=== PATIENT | male | born 1990 | race Caucasian/White ===

== ENCOUNTER 2024-08-08 08:12 | Outpatient (AMB) | payer BC, SELFPAY ==
--- NOTE | 2024-08-08 08:08 | A.OFFVIS_ITS ---
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 Allergies azithromycin Allergy (Mild, Verified 08/08/24 08:09) Unknown Penicillins Allergy (Mild, Verified 08/08/24 08:09) Unknown Sulfa (Sulfonamide Antibiotics) Allergy (Mild, Verified 08/08/24 08:09) Unknown Medication List - Last Reconciled 08/08/24 by Adam Jeter MD amlodipine-benazepril 10-40 mg 1 cap PO DAILY dextroamphetamine-amphetamine 5 mg (Adderall) 5 mg PO DAILY escitalopram oxalate (Lexapro) 20 mg PO DAILY escitalopram oxalate (Lexapro) 10 mg PO DAILY rosuvastatin 10 mg PO DAILY HPI 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: Details: Start time: 8.01am, End time: 9.01am I spent 55 minutes speaking with the patient on the phone plus an additional 5 minutes reviewing and updating records for a total of 60 minutes HPI Comments Details: Previous weight loss efforts: Keto diet, low carb, protein shakes Wakes up: 7.30am, Sleeps: 10.30pm Breakfast: 8am [employer] breakfast Lunch: 12.30pm (salad with chicken, burger) Dinner: 8pm (fast food) Snacks: 4pm (candy bar, chips), 9pm (ice cream) Exercise: Gym at his work Fluids: Coffee (2-3/d, one from [employer] with cream and sugar, black when self made), tea: rare, soda: Energy Drinks, juice: rare, ETOH: none PFSH Medical History (Updated 08/08/24 @ 08:15 by Adam Jeter MD) Anti-glomerular basement membrane antibody disease ADHD DJD (degenerative joint disease) Hyperlipidemia Hypertension Morbid obesity Fatty liver Family History (Updated 08/07/24 @ 08:06 by DYLON Figueroa) Father Heart attack Telehealth Telehealth Telehealth Platform: Telephone Location of provider rendering services: practice address Location of patient: address on file Patient Identification confirmed using: Name, : Yes Telehealth method: voice only Patient verbally consented to treatment: Yes Patient verbally consented to billing insurance company: Yes Patient informed of any privacy concerns related to visit: Yes Minutes spent on Phone/Video with Pt.: 60 Assessment & Plan Assessment & Plan (1) Morbid obesity: Code(s): E66.01 - Morbid (severe) obesity due to excess calories Category: Medical Plan: 1. Plan for lap sleeve gastrectomy. If diaphragmatic or ventral hernias are present at time of surgery, these will be repaired laparoscopically as well. I emphasized the importance of close follow-up, adherence to instructions and good communication. The surgery does not replace the need to change your lifestlyle which is the cause of the obesity problem. The surgery provides the motivation to try again to change your lifestyle, it reduces the appetite and make the transition to a better lifestyle easier and doubles the amount of weight you would lose compared to doing the lifestyle change without the surgery. You will need to be on a liquid diet with protein shakes for 2 weeks before surgery to maximize weight loss and boost your nutritional status to recover better from surgery and also for the first two weeks after surgery to let the stomach heal before we introduce other foods. After the first 2 weeks we will introduce protein bars and soft foods like scrambled eggs, cottage cheese and yogurt and after the 6th week will introduce meat, fish and cooked vegetables in small amounts. Over time you should be able to eat everything in small amounts. Side effects like nausea, vomiting, heartburn or abdominal pain are not common in the practice unless you are not following in the practice. This operation requires lifetime commitment to following in our practice and communication with me. You will much less weight and experience side effects if you don?t communicate or not following in the practice. Complications are rare and in our practice is about 1/10 of the national average. However, you can develop bleeding that may require transfusion (hasn?t happened for year in the practice), you may from complications (we did not have any deaths in the practice) and infections. Infections are usually a result of breakdown in communication or not understanding or following directions correctly. They are difficult to treat, they can happen during the first 6 weeks, they may require to be in the hospital for weeks or even months, not being able to eat by mouth and you may have drains and surgeries to try and correct the issue. Other risks and complications include possible conversion to an open procedure, leaks, small bowel obstruction, blood clots, cardiac, or pulmonary complications, as care home complications such as ulcers, insufficient weight loss and vitamin deficiencies. 2. You will receive a link of our software estephania to generate an individualized nutritional and exercise plan specific for you. Please send me a screenshot of the plans you will generate Meal to include lean meat (beef, fish, pork, turkey, chicken), or maori yogurt, or egg whites, or beans with a salad with olive oil and fruits (berries, pears, apples, kiwi). Avoid salt, breads, potatoes, rice, pasta, desserts. 3. If you choose shakes, each shake would be drunk slowly, like coffee in a period of 2 hours. 4. If you choose bars, cut each bar in 4 pieces and eat each piece in 30min to make each bar last 2 hours. 5. I emphasized the importance of measuring accurately the food portion and measure it when serving the food in plate 6. The meal portions include a specific number of forks of meat and salad. You always eat the meat portion but you can replace up to half of salad/vegetables portion with rice, potatoes or pasta, or a fruit if you like. The less you do it the better weight loss will be. 7. One full-size fork is what it can be scooped on the fork without falling aside and not what can be bit with the fork. Use regular forks like those you find in a typical restaurant. 8. Please buy the body composition scale we discussed and send me weight measurements as soon as possible and then once a week. Always include your diet and exercise plan. 9. The best choice would be to purchase a stationary bike, elliptical or treadmill at home that can track calories. Let me know if you do so I can give you an exercise plan. 10. Goal is to lose at least 1.5-2lbs per week 11. Goal to lose 10% of your weight before surgery, which is about 30lbs. Ultimate weight goal: 267lbs before surgery 12. Please follow the diet plan exactly without any change. If you don't like something about the plan or you feel hungry you need to communicate with me so I can help you revise the plan. You should not change the plan yourself. 13. To be scheduled for EGD to assess the stomach's anatomy. The possibility of biopsies was discussed. Patient needs to avoid use of NSAIDs and aspirin for 1 week prior to EGD. You must be on liquids only the day before your endoscopy. Risks of perforation and bleeding was discussed with the patient. This will be an outpatient procedure with IV sedation. Orders: Orders H Pylori Breath Test Today E66.01 - Morbid (severe) obesity due to excess calories, E78.5 - Hyperlipidemia, unspecified, I10 - Essential (primary) hypertension Lipid Panel Today E66.01 - Morbid (severe) obesity due to excess calories, E78.5 - Hyperlipidemia, unspecified, I10 - Essential (primary) hypertension Comprehensive Met. Panel Today E66.01 - Morbid (severe) obesity due to excess calories, E78.5 - Hyperlipidemia, unspecified, I10 - Essential (primary) hypertension Vitamin B1 Today E66.01 - Morbid (severe) obesity due to excess calories, E78.5 - Hyperlipidemia, unspecified, I10 - Essential (primary) hypertension Vitamin A Today E66.01 - Morbid (severe) obesity due to excess calories, E78.5 - Hyperlipidemia, unspecified, I10 - Essential (primary) hypertension TSH reflex Free T4 Today E66.01 - Morbid (severe) obesity due to excess calories, E78.5 - Hyperlipidemia, unspecified, I10 - Essential (primary) hypertension ECG 12 lead EKG Today E66.01 - Morbid (severe) obesity due to excess calories, E78.5 - Hyperlipidemia, unspecified, I10 - Essential (primary) hypertension RT home sleep study Today E66.01 - Morbid (severe) obesity due to excess calories, E78.5 - Hyperlipidemia, unspecified, I10 - Essential (primary) hypertension Insulin Today E66.01 - Morbid (severe) obesity due to excess calories, E78.5 - Hyperlipidemia, unspecified, I10 - Essential (primary) hypertension Hemoglobin A1c Today E66.01 - Morbid (severe) obesity due to excess calories, E78.5 - Hyperlipidemia, unspecified, I10 - Essential (primary) hypertension Complete Blood Count Auto Diff Today E66.01 - Morbid (severe) obesity due to excess calories, E78.5 - Hyperlipidemia, unspecified, I10 - Essential (primary) hypertension IRON PROFILE Today E66.01 - Morbid (severe) obesity due to excess calories, E78.5 - Hyperlipidemia, unspecified, I10 - Essential (primary) hypertension Vitamin B12 and Folate Today E66.01 - Morbid (severe) obesity due to excess calories, E78.5 - Hyperlipidemia, unspecified, I10 - Essential (primary) hypertension Zinc Today E66.01 - Morbid (severe) obesity due to excess calories, E78.5 - Hyperlipidemia, unspecified, I10 - Essential (primary) hypertension C Reactive Protein Today E66.01 - Morbid (severe) obesity due to excess calories, E78.5 - Hyperlipidemia, unspecified, I10 - Essential (primary) hypertension Ferritin Today E66.01 - Morbid (severe) obesity due to excess calories, E78.5 - Hyperlipidemia, unspecified, I10 - Essential (primary) hypertension Vitamin D 25-OH Total Today E66.01 - Morbid (severe) obesity due to excess calories, E78.5 - Hyperlipidemia, unspecified, I10 - Essential (primary) hypertension US abdomen comp w elastography Today E66.01 - Morbid (severe) obesity due to excess calories, E78.5 - Hyperlipidemia, unspecified, I10 - Essential (primary) hypertension XR chest 2V Today E66.01 - Morbid (severe) obesity due to excess calories, E78.5 - Hyperlipidemia, unspecified, I10 - Essential (primary) hypertension FL upper GI w air Today E66.01 - Morbid (severe) obesity due to excess calories, E78.5 - Hyperlipidemia, unspecified, I10 - Essential (primary) hypertension Referrals Nutrition/Dietitian Referral E66.01 - Morbid (severe) obesity due to excess calories, E78.5 - Hyperlipidemia, unspecified, I10 - Essential (primary) hypertension Behavioral Health Referral E66.01 - Morbid (severe) obesity due to excess calories, E78.5 - Hyperlipidemia, unspecified, I10 - Essential (primary) hypertension
--- OUTSIDE RECORDS SUMMARY | 2024-08-08 08:29 | XMS_ITS | Clinical Summary ---
Author Organization [facility] Address [address] [id number] Phone Care Team Providers Care Jewelry Estimator Name Role Phone Alma Chavarria MD Primary Care Provider + [phone] Allergies Active Allergy Reactions Criticality Noted Date Comments Erythromycin Other (see comments) 02/03/2021 Penicillins 02/03/2021 Sulfa Antibiotics Other (see comments) 02/04/20 21 Medications amLODIPine-carey zepril (LOTREL) 10-40 MG per capsule Take by mouth 1 (one) time each day 11/26/2020 Active amphetamine-dex troamphetamine XR (Adderall XR) 15 MG 24 hr capsule Take 1 capsule by mouth 1 (one) time each day Active buPROPion XL (WELLBUTRIN XL) 150 MG 24 hr tablet 02/02/2021 Active escitalopram (LEXAPRO) 20 MG tablet 02/02/2021 Active hydrOXYzine (ATARAX) 25 MG tablet Active Active Problems Problem Noted Date Diagnosed Date Allergic rhinitis 02/03/2021 Body mass index 30+ - obesity 02/03/2021 Chronic dermatitis 02/03/2021 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 Recurrent depression 02/03/2021 Essential hypertension 08/17/2012 Family History Medical History Relation Comments Hypertension Father Diabetes Mother Type 2 Relation Status Comments Father Alive Mother Alive Social History Tobacco Use Types Packs/Day Years Used Date Smoking Tobacco: Never Alcohol Use Standard Drinks/Week Comments No 0 (1 standard drink = 0.6 oz pur e alcohol) Sex and Gender Information Value Date Recorded Sex Assigned at Not on file Legal Sex Male 5:22 PM EST Gender Identity Not on file Sexual Orientation Not on file Last Filed Vital Signs Vital Sign Reading Time Taken Comments Blood Pressure 140/90 01/31/2020 12:00 PM EDT Pulse - - Temperature - - Respiratory Rate - - Oxygen Saturation - - Inhaled Oxygen Concentration - - Weight 163 kg (360 lb) 01/31/2020 12:00 PM EDT Height 182.9 cm (6') 01/31/2020 12:00 PM EDT Body Mass Index 48.82 01/31/2020 12:00 PM EDT Plan of Treatment Upcoming Encounters Date Type Department Care Team (Late st Contact Info) Description 08/23/2024 8:30 AM EDT [facility] [address] [phone] [place] [address] [phone] Health Maintenance Due Date Last Done Comments Pneumococcal Vaccine: Pediat rics (0 to 5 Years) and At-Risk Patients (6 to 64 Years) (1 of 2 - PCV) 02/09/1994 Hepatitis B Vaccine (1 of 3 - 19+ 3-dose series) 02/09 Influenza Vaccine (#1) 2024 Insurance [facility] Care Teams Jewelry Estimator Relationship Specialty Start Date End Date Alma Chavarria MD [address] [place] [address] PCP - General Internal Medicine 12/09/22
[2024-08-08 08:41] VITALS: BMI 53.9
== END 2024-08-08 09:02 | disposition home or self-care (01) ==
LOC: HO.HBS 08:12
PROVIDERS: PCP Internal Medicine; Visit Provider Surgery
DX: E66.01 Morbid (severe) obesity due to excess calories (principal)
CPT/HCPCS: 99205

== ENCOUNTER 2024-08-15 07:44 | Outpatient (REF) | payer BC, SELFPAY ==
--- NOTE | ~2024-08-15 | XR_ITS ---
EXAMINATION: XR CHEST CLINICAL INFORMATION: E66.01 - Morbid (severe) obesity due to excess calories COMPARISON: None available. TECHNIQUE: 2 views of the chest were obtained. FINDINGS: No consolidation , pleural effusion or pneumothorax. Poor inspiration. Cardiomediastinal silhouette is normal. Osseous structures are intact. XR/XR chest 2V IMPRESSION: No acute airspace disease. Electronically signed by: Ibrahima Young MD 08/17/2024 08:58 AM ISABELL
--- NOTE | 2024-08-15 07:51 | ECG_ITS ---
Test Reason : E66.01 Blood Pressure : */* mmHG Vent. Rate : 82 BPM Atrial Rate : 82 BPM P-R Int : 162 ms QRS Dur : 102 ms QT Int : 406 ms P-R-T Axes : 53 2 144 degrees QTcB Int : 474 ms Normal sinus rhythm ST & T wave abnormality, consider lateral ischemia Prolonged QT Abnormal ECG No previous ECGs available Referred By: Adam Jeter Electronically Signed By: BULMARO PORTILLO MD
[2024-08-15 08:11] LABS: MANUAL DIFF FLAG NO
[2024-08-15 08:17] LABS: Basophils Percent Auto 0.5 % (0-2); Eosinophils Absolute Auto 0.2 X10*3/uL (0.0-0.4); Eosinophils Percent Auto 2.1 % (0-4); Hematocrit 47.6 % (42.0-52.0); Hemoglobin 16.8 g/dl (14.0-18.0); Imm Gran Abs Auto 0.02 X10*3/uL (0.00-0.03); Imm Gran Pct Auto 0.3 % (0.0-0.4); Lymphocytes Absolute Auto 1.9 X10*3/uL (1.2-4.9); Lymphocytes Percent Auto 26.5 % (20-40); Mean Corpuscular HGB Conc 35.3 g/dl (31.0-36.0); Mean Platelet Volume 10.5 fL (9.4-12.4); Monocytes Absolute Auto 0.6 X10*3/uL (0.1-1.2); Monocytes Percent Auto 7.8 % (2-11); Neutrophils Absolute Auto 4.6 x10*3/uL (2.0-8.3); Neutrophils Percent Auto 62.8 % (45-73); Platelet Count 286 X10*3/uL (160-400); Red Cell Distribution Width 11.9 % (11.0-16.0); White Blood Count 7.3 X10*3/uL (4.8-10.8)
[2024-08-15 08:39] LABS: Estimated Average Glucose 105 mg/dL; Hemoglobin A1C 148.3498 umol/L; Hemoglobin A1c % 5.3 % (<6.0); Total Hemoglobin (HGBA1C) 4333.1947 umol/L
[2024-08-15 08:59] LABS: Alanine Aminotransferase 68 U/L (0-40); Albumin Level 4.1 g/dL (3.5-5.0); Alkaline Phosphatase 62 U/L (39-117); Anion Gap 10 (12-20); Aspartate Amino Transferase 42 U/L (5-37); Bilirubin Total 0.9 mg/dL (0.0-1.0); Blood Urea Nitrogen 20 mg/dL (9-16); C Reactive Protein 0.57 mg/dL (< or = 0.50); Calcium 9.2 mg/dL (8.4-10.2); Carbon Dioxide 25 mmol/L (22-29); Chloride 107 mmol/L (96-108); Cholesterol 129 mg/dL (<200); Estimated Glomerular Filt Rate > 60; Glucose Random 107 mg/dL (60-115); HDL Cholesterol 28 mg/dL (>40); Iron 152 mcg/dL (45-160); LDL Cholesterol Calculated 61 mg/dL (<100); Percent Iron Saturation 55 % (15-50); Potassium 4.2 mmol/L (3.3-5.1); Sodium 138 mmol/L (135-145); Total Iron Binding Capacity 276 mcg/dL (228-428); Total Protein 7.5 g/dL (6.5-8.0); Triglycerides 202 mg/dL (<150); Unsaturated Iron Binding 124 ug/dL
[2024-08-15 09:24] LABS: Ferritin 251 ng/mL (20-250); TSH reflex Free T4 1.04 uIU/mL (0.32-4.0); Vitamin D 25-OH Total 28.5 ng/mL (>30)
[2024-08-15 09:32] LABS: Folate 14.5 ng/mL (> or = 4.0); Vitamin B12 662 pg/mL (200-900)
[2024-08-15 10:33] LABS: Insulin 25 uU/mL (2-29)
[2024-08-18 22:44] LABS: Zinc 77 mcg/dL (60-130)
[2024-08-19 00:34] LABS: Vitamin A 75 mcg/dL (38-98)
[2024-08-25 16:08] LABS: Vitamin B1 9 nmol/L (8-30)
== END 2024-08-15 07:45 | disposition home or self-care (01) ==
LOC: HO.XRAY 07:44
PROVIDERS: PCP Internal Medicine; Visit Provider Surgery
DX: E66.01 Morbid (severe) obesity due to excess calories (principal); E78.5 Hyperlipidemia, unspecified; I10 Essential (primary) hypertension; Z13.1 Encounter for screening for diabetes mellitus
CPT/HCPCS: 36415; 71046; 80053; 80061; 82306; 82607; 82728; 82746; 83036; 83525; 83540; 84425; 84443; 84590; 84630; 85025; 86140; 93005

== ENCOUNTER → 2024-08-15 07:51 | Outpatient (BNV) | payer BC, SELFPAY | PROVIDERS: PCP Internal Medicine; Visit Provider Internal Medicine Cardiovascular Disease | DX: R94.31 Abnormal electrocardiogram [ECG] [EKG] (principal); E66.01 Morbid (severe) obesity due to excess calories | CPT/HCPCS: 93010 ==

== ENCOUNTER → 2024-08-15 08:09 | Outpatient (BNV) | payer BC, SELFPAY | PROVIDERS: PCP Internal Medicine; Visit Provider Radiology Diagnostic Radiology | DX: E66.01 Morbid (severe) obesity due to excess calories (principal) | CPT/HCPCS: 71046 ==

== ENCOUNTER 2024-09-03 08:09 | Outpatient (AMB) | payer BC, SELFPAY ==
--- NOTE | 2024-09-03 08:00 | MHC.WMTHER ---
Intake Intake Visit Reasons: VIDEO BH Intake Allergies azithromycin Allergy (Mild, Verified 08/08/24 08:09) Unknown Penicillins Allergy (Mild, Verified 08/08/24 08:09) Unknown Sulfa (Sulfonamide Antibiotics) Allergy (Mild, Verified 08/08/24 08:09) Unknown [facility] Medical History (Updated 08/15/24 @ 16:58 by Adam Jeter MD) Anti-glomerular basement membrane antibody disease ADHD DJD (degenerative joint disease) Hyperlipidemia Hypertension Morbid obesity Fatty liver Family History (Updated 08/07/24 @ 08:06 by DYLON Figueroa) Father Heart attack Behavioral Health Assessment Weight Management Therapy Therapy Notes Details PT is a 34 years old Male, who presents for initial visit to start BH assessment as part of surgical weight loss program. Presenting Concerns Referral Source Initially referred PCP referred Reason for referral Completion of behavioral health assessment as part of process for weight-loss surgery. Precipitating Event Obese Living Situation Current Living Situation Rent At risk of losing current housing? No Satisfied with current living situation? Yes Comments Lives in an in-law apartment at his fathers home. Food/Weight/Diet Expectations of change The initial goal to lose 10% of her weight before surgery, which is about 30 lbs. Ultimate weight goal: 267lbs before surgery PT started the program at 397Lbs and recent Weight as of 08/30/24 388Lbs The patient doesn't have a specific weight goal, but at least would like to be around 200 lbs. Their main goals are related to his health. PT is implementing the following: Current meal plan: using [email or web address] website. has a combination on shakes, bars and 1 meal at day which is dinner. Exercise plan: doing walks. Scale: Yes History/Relationship with food Example of meals before starting the program: Breakfast: Lunch: Dinner: Snacks: Drinks/Liquids: History/Relationship with weight In the last 10 years, the patient's Lowest weight was and highest History/Relationship with dieting Tired WL program 4 years ago WL medication for a while, had side effects. Social History Family history and relationship PT is single but dating. Parents are alive, he has 3 sisters His parents when he was a child. HE moved around due to his father being in the [place]. Not close to his mother. close to his dad and sisters. 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 currently taking Adderall and guafazine. Social support Father, step-mom, girlfriend. Network of people at work. Community support PCP who made the referral. Psychiatrist. Quaker/Spirituality None. Cultural/Ethnic information . Legal Involvement and History Current or historical involvement with the legal system? None. Education Highest grade completed HS. College certificate in addictions. Preferred learning style Learn by doing and Visual Currently enrolled in educational program? No Interested in further educational program? Yes Educational Interests/Skills Social work. 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 ) Wants help to find employment? No Meaningful activities Read, play a social game a couple of times a week, and go hiking on the weekends. Financial Situation Describe current financial situation Comfortable Financial assistance? None Service Service? No Mental Health and Addiction Treatment Current/Past substance abuse? No Comments Alcohol: rarely. Cigarettes/Tobacco: on and off. Once in a while will have one. Cannabis/Edibles: None Current/Past addictive behavior concerns? No Psychiatric history PT has previously attended therapy, with the most recent session occurring two years ago. PT reports a history of trauma and experienced depressive symptoms during treatment for an autoimmune condition. PT has been diagnosed with ADD and are unsure if they were ever formally diagnosed with depression. PT currently sees Dr. Yury Nunez, a psychiatrist, every 2-3 months. Their current medications include: -Adderall 5mg -Lexapro 30mg -Guanfacine 4mg PT reports feeling stable with this medication regimen. The patient denies any history of hospitalization or behavioral health crises. They also deny any safety concerns regarding suicidal ideation (SI), self-harm, or harm to others. Medical and Physical Health Summary Additional Medical History not covered in history None additional. Sexual History concerns None reported. Physical exam in the last year? Yes Pain Screening Current pain? No Pain in the last few months? Yes Comments Knee and feet. Medications Is the patient compliant with medications? Yes Does the patient have Hackett Guardian in place? Not applicable Does the patient use complimentary health approaches? Yes (Been to a chiropractor years ago. Does massage Therapy once in a while. ) Trauma/Abuse History History of trauma? Yes (Due to medical issues, in childhood there was family trauma while parents were trough separation, but he doesn't recall.) Questionnaires PHQ-9 Over the last 2 weeks, how often have you been bothered by any of the following problems? 1. Little interest or pleasure in doing things: several days 2. Feeling down, depressed, or hopeless: several days 3. Trouble falling or staying asleep, or sleeping too much: more than half the days 4. Feeling tired or having little energy: nearly every day 5. Poor appetite or overeating: nearly every day 6. Feeling bad about yourself - or that you are a failure or have let yourself or your family down: several days 7. Trouble concentrating on things, such as reading the newspaper or watching television: more than half the days 8. Moving or speaking so slowly that other people could have noticed. Or the opposite - being so fidgety or restless that you have been moving around a lot more than usual: not at all 9. Thoughts that you would be better off or of hurting yourself in some way: not at all Total score: 13 Depression Screening Interpretation: Positive (From New PT pack - New one will be applied at next visit. ) Depression Screening Follow-up: Existing condition Depression Screening Done: Yes Source: Developed by Drs. Danial Martin, Fe White, Avery Ramos and colleagues, with an educational adryan from [employer]. Assessment & Plan Assessment & Plan (1) ADD (attention deficit disorder): Code(s): F98.8 - Other specified behavioral and emotional disorders with onset usually occurring in childhood and adolescence (2) Trauma and stressor-related disorder: Code(s): F43.9 - Reaction to severe stress, unspecified Plan The patient will return in 1-3 weeks to complete the assessment, as they were not cleared today. A new PHQ-9 will be administered, and the BES will be reviewed. Next estephania: 09/24/2024 at 8am, Telehealth. Telehealth Telehealth Telehealth Platform: [facility] Location of provider rendering services: other Location of patient: address on file Patient Identification confirmed using: Name, : Yes Telehealth method: video Patient verbally consented to treatment: Yes Patient verbally consented to billing insurance company: Yes Patient informed of any privacy concerns related to visit: Yes Minutes spent on Phone/Video with Pt.: 55 Coding Level of Care Code New Pt Tele Psy Diag Eval (83872) Patient Type New Diagnoses ADD (attention deficit disorder) F98.8 Trauma and stressor-related disorder F43.9 Time Spent (min) 55
== END 2024-09-03 08:58 | disposition home or self-care (01) ==
LOC: HO.HBST 08:09
PROVIDERS: PCP Internal Medicine; Visit Provider Counselor Mental Health
DX: F98.8 Other specified behavioral and emotional disorders with onset usually occurring in childhood and adolescence (principal); F43.9 Reaction to severe stress, unspecified
CPT/HCPCS: 90791

== ENCOUNTER → 2024-09-03 08:09 | Outpatient (BNVA) | payer BC, SELFPAY | PROVIDERS: PCP Internal Medicine; Visit Provider Counselor Mental Health ==

== ENCOUNTER 2024-09-07 07:46 | Outpatient (REF) | payer BC, SELFPAY ==
--- NOTE | ~2024-09-07 | US_ITS ---
EXAMINATION: US ABDOMEN COMPLETE WITH LIVER ELASTOGRAPHY HISTORY: E66.01 - Morbid (severe) obesity due to excess calories TECHNIQUE: Real-time grayscale ultrasound imaging of the abdomen was performed and images were reviewed. COMPARISON: There are no prior studies for comparison. FINDINGS: Liver: The right lobe of the liver measures 17.8 cm in size. The left lobe of the liver measures 8.8 cm in size. The liver demonstrates normal homogeneous echotexture. No focal mass or intrahepatic biliary ductal dilatation is identified. There is normal hepatopedal flow in the portal vein. Ultrasound elastography of the liver was performed with 10 separate measurements of the liver parenchyma with the patient in the supine position. It was difficult to obtain measurements approximately 2 cm below Phillip's capsule and perpendicular to the capsule due to patient body habitus. Images are of satisfactory quality. The median shear wave velocity is 1.94 m/s. The interquartile range/median (IQR/median) is 0.11. Gallbladder and biliary tree: The gallbladder is unremarkable, without evidence of calculi, wall thickening, or pericholecystic fluid. There is no sonographic Hoffmann sign. The common bile duct is normal in caliber measuring 3 mm. Kidneys: The right kidney measures 13.0 cm in length. The left kidney measures 12.6 cm in length. The kidneys are unremarkable, without evidence of masses, hydronephrosis, or calculi. Pancreas: There is limited visualization of the pancreas. Spleen: The spleen is normal in size and contour, measuring 11.3 cm in length. Abdominal aorta and inferior vena cava: The visualized portions of the abdominal aorta and inferior vena cava are normal in caliber. There is no free fluid in the abdomen. US/US abdomen comp w elastography IMPRESSION: Mild hepatomegaly. The pancreas is not well visualized. The median shear wave velocity in the liver is 1.94 m/s, corresponding to a median liver stiffness of 11.50 kPa. The IQR/median value is 0.11. This is indicative of a quality data set. Findings are indicative of a high elastography value suggestive of compensated advanced chronic liver disease. REFERENCE: Society of [employer]iologists in Ultrasound Liver Stiffness Thresholds (2020): LIVER STIFFNESS THRESHOLDS: *Shear wave velocity less than 1.3 m/s (Liver Stiffness equal or less than 5 kPa): High probability of being normal. *Shear wave velocity less than 1.7 m/s (Liver Stiffness less than 9 kPa): In the absence of other known clinical signs, rules out compensated advanced chronic liver disease. *Shear wave velocity between 1.7-2.1 m/s (Liver Stiffness 9-13 kPa): Suggestive of compensated advanced chronic liver disease but need further test for confirmation. *Shear wave velocity between 2.1-2.4 m/s (Liver Stiffness 13-17 kPa): Rules in compensated advanced chronic liver disease. *Shear wave velocity greater than 2.4 m/s (Liver Stiffness over 17 kPa): Suggestive of clinically significant portal hypertension. QUALITY OF DATA SET: *IQR/Median value equal or less than 0.15 implies a quality data set. *IQR/Median value over 0.15 implies a poor quality data set. SIGNIFICANT CHANGE FROM PRIOR EXAM: Significant change if liver stiffness measurement is 10% or greater from prior exam. OTHER CONSIDERATIONS: The stage of liver fibrosis may be overestimated in the setting of acute hepatitis, liver inflammation, elevated liver function tests, hepatic vascular congestion, obstructive cholestasis, non-fasting state, and infiltrative diseases such as amyloidosis and lymphoma. In some patients with NAFLD, the liver stiffness thresholds for compensated advanced chronic liver disease may be lower. In causes other than viral hepatitis and NAFLD, liver stiffness thresholds are not well established. Electronically signed by: Danial Hugo MD 09/07/2024 08:22 AM EDT
== END 2024-09-07 07:47 | disposition home or self-care (01) ==
LOC: HO.US 07:46
PROVIDERS: PCP Internal Medicine; Visit Provider Surgery
DX: E66.01 Morbid (severe) obesity due to excess calories (principal); E78.5 Hyperlipidemia, unspecified; I10 Essential (primary) hypertension
CPT/HCPCS: 76700; 76981

== ENCOUNTER → 2024-09-07 07:48 | Outpatient (BNV) | payer BC, SELFPAY | PROVIDERS: PCP Internal Medicine; Visit Provider Radiology Diagnostic Radiology | DX: R16.0 Hepatomegaly, not elsewhere classified (principal); E66.01 Morbid (severe) obesity due to excess calories | CPT/HCPCS: 76700; 76981 ==

== ENCOUNTER 2024-09-13 06:11 | Day surgery (SDC) | payer BC, SELFPAY ==
[2024-09-11 14:17] VITALS: BMI 53.9
--- NOTE | 2024-09-11 15:04 | HO.ANESPROP2 ---
Documented by User: Janette Carmen NP 09/11/24 15:31 HPI - Anesthesia Eval Consult details Narrative: 34yo M for Upper Endoscopy BMI 54 Cardiomyopathy on ECHO 2023, no CAD per Coronary CTA s/p VATS 2011 - ? etiology Case reviewed with Dr Garcia Anesthesia Pre-Procedure Meds Is the patient on any of the following meds?: SGLT2 Inhib PMFSH Active Problems Active Problems: All Active Problems Abnormal EKG (Acute) Vitamin D deficiency (Acute) Anti-glomerular basement membrane antibody disease (Acute) ADHD (Acute) DJD (degenerative joint disease) (Acute) Hyperlipidemia (Acute) Hypertension (Acute) Morbid obesity (Acute) Past Medical History Medical History Pre-diabetes Cardiomyopathy, unspecified Anxiety and depression Anti-glomerular basement membrane antibody disease ADHD DJD (degenerative joint disease) Hyperlipidemia Hypertension Morbid obesity Fatty liver Family History Family History Father Heart attack Surgical History Surgical History History of biopsy of kidney History of video-assisted thoracoscopic surgery (VATS) Social History Social History Patient Tobacco Use Status: Current someday Tobacco user Second Hand Smoke Exposure: No Use of substances other than those prescribed or required for medical reasons: No Have you been hit, kicked, punched, or otherwise hurt by someone within the past year? If so, by whom?: No Are you DNR?: No Advance Directives: No Advance Directives Information Provided: Yes Advance Directives on File: No Poor oral hygiene: No Meds Allergies Allergy/AdvReac Type Severity Reaction Status Date / Time azithromycin Allergy Mild Unknown Verified 08/08/24 08:09 Penicillins Allergy Mild Unknown Verified 08/08/24 08:09 Sulfa (Sulfonamide Allergy Mild Unknown Verified 08/08/24 08:09 Antibiotics) Home Medications ?Medication ?Instructions ?Recorded ?Confirmed ?Last Taken ?Type amlodipine 10 mg-benazepril 40 mg 1 cap PO DAILY 08/07/24 09/13/24 09/12/24 History capsule dextroamphetamine-amphetamine 5 mg 5 mg PO DAILY 08/07/24 09/13/24 09/12/24 History tablet (Adderall) escitalopram oxalate 20 mg tablet 30 mg PO DAILY 08/07/24 09/13/24 09/12/24 History (Lexapro) rosuvastatin 10 mg tablet 10 mg PO DAILY 08/07/24 09/13/24 09/12/24 History dapagliflozin propanediol 5 mg 5 mg PO QAM 09/11/24 09/13/24 09/12/24 History tablet Exam Height,Weight and Vital Signs: Height 6 ft Weight 180.246 kg Pertinent Lab Results Pertinent Lab Results: Laboratory Tests 08/15/24 08:09 WBC 7.3 Hgb 16.8 Hct 47.6 Plt Count 286 Sodium 138 Potassium 4.2 Chloride 107 Carbon Dioxide 25 BUN 20 H Creatinine 0.85 Narrative Narrative: EKG 08/2024 Vent. Rate : 82 BPM Atrial Rate : 82 BPM P-R Int : 162 ms QRS Dur : 102 ms QT Int : 406 ms P-R-T Axes : 53 2 144 degrees QTcB Int : 474 ms Normal sinus rhythm ST & T wave abnormality, consider lateral ischemia Prolonged QT Abnormal ECG No previous ECGs available ECHO 2023 Summary Suboptimal image quality due to patient's body habitus. The right ventricle is normal in size and function. The left ventricular size is normal. The left ventricular wall thickness is upper normal. The LV systolic function is mildly reduced . The left ventricular ejection fraction is 40-45 %. There is mild global hypokinesis of the left ventricle. Unable to assess diastolic function due to E/A fusion. Coronary Artery Angiography 06/2024: Image numbers below refer to series 404 unless otherwise noted. There is no coronary artery calcification. Dominance: Right dominant. Left Main: The ostium is normally positioned. The left main coronary artery is normal. Left Anterior Descending: No significant plaque or stenosis. First diagonal is a normal medium-sized branch seen on images 61. Distal LAD is not well seen due to its small size. Left Circumflex Artery: No significant plaque or stenosis. OM1 is a normal medium-sized branch arising early seen on image 65. Distal circumflex is small and not well seen. Right Coronary Artery: The ostium is normally positioned. It is a large vessel with no significant plaque or stenosis. Distal RCA supplies the PDA and a posterior lateral ventricular branch. IMPRESSION: No evidence of hemodynamically significant coronary artery disease. Exam is mildly to moderately degraded by body habitus. Assessment and Plan Assessment Anesthesia Assessment: Chart Reviewed Documented by User: Jadyn Borja MD 09/13/24 07:43 HPI - Anesthesia Eval Consult details Narrative: 34yo M for Upper Endoscopy BMI 54 Cardiomyopathy on ECHO 2023, no CAD per Coronary CTA s/p VATS 2011 - ? etiology Case reviewed with Dr Garcia Patient took Farxiga yesterday. Discussed risks with patient and Dr Jeter.Dr Jeter wishes to proceed.Will intubate. RSI Anesthesia Pre-Procedure Meds Is the patient on any of the following meds?: SGLT2 Inhib (Last dose of Dapagliflozin 09/12/24) PMFSH Active Problems Active Problems: All Active Problems Abnormal EKG (Acute) Vitamin D deficiency (Acute) Anti-glomerular basement membrane antibody disease (Acute) ADHD (Acute) DJD (degenerative joint disease) (Acute) Hyperlipidemia (Acute) Hypertension (Acute) Morbid obesity (Acute) BMI 52.7 Past Medical History Medical History Pre-diabetes Cardiomyopathy, unspecified Anxiety and depression Anti-glomerular basement membrane antibody disease ADHD DJD (degenerative joint disease) Hyperlipidemia Hypertension Morbid obesity Fatty liver Family History Family History Father Heart attack Family history of problems with anesthesia: No Surgical History Surgical History History of biopsy of kidney History of video-assisted thoracoscopic surgery (VATS) History of Problems with Anesthesia: No Social History Social History Patient Tobacco Use Status: Current someday Tobacco user Second Hand Smoke Exposure: No Use of substances other than those prescribed or required for medical reasons: No Have you been hit, kicked, punched, or otherwise hurt by someone within the past year? If so, by whom?: No Are you DNR?: No Advance Directives: No Advance Directives Information Provided: Yes Advance Directives on File: No Poor oral hygiene: No Meds Allergies Allergy/AdvReac Type Severity Reaction Status Date / Time azithromycin Allergy Mild Unknown Verified 08/08/24 08:09 Penicillins Allergy Mild Unknown Verified 08/08/24 08:09 Sulfa (Sulfonamide Allergy Mild Unknown Verified 08/08/24 08:09 Antibiotics) Home Medications ?Medication ?Instructions ?Recorded ?Confirmed ?Last Taken ?Type amlodipine 10 mg-benazepril 40 mg 1 cap PO DAILY 08/07/24 09/13/24 09/12/24 History capsule dextroamphetamine-amphetamine 5 mg 5 mg PO DAILY 08/07/24 09/13/24 09/12/24 History tablet (Adderall) escitalopram oxalate 20 mg tablet 30 mg PO DAILY 08/07/24 09/13/24 09/12/24 History (Lexapro) rosuvastatin 10 mg tablet 10 mg PO DAILY 08/07/24 09/13/24 09/12/24 History dapagliflozin propanediol 5 mg 5 mg PO QAM 09/11/24 09/13/24 09/12/24 History tablet Exam Height,Weight and Vital Signs: Height 6 ft Weight 180.246 kg Vital Signs Temp Pulse Resp BP Pulse Ox O2 Del Method 09/13/24 06:47 97.4 F 54 18 133/76 97 Room Air Pertinent Lab Results Pertinent Lab Results: Laboratory Tests 08/15/24 08:09 WBC 7.3 Hgb 16.8 Hct 47.6 Plt Count 286 Sodium 138 Potassium 4.2 Chloride 107 Carbon Dioxide 25 BUN 20 H Creatinine 0.85 Airway Mallampati Class: III TM Dist: >3cm Neck ROM: Full Loose/Missing/Broken Teeth: Yes (Missing molars. Denies broken or loose teeth) Heart: RRR Lungs: CTAB Assessment and Plan Assessment Anesthesia Assessment: Anesthesia Plan Discussed and Chart Reviewed Final Anesthetic Review Family History of Problems with Anesthesia: No History of Problems with Anesthesia: No NPO: Yes ASA Class: III Final Preanesthetic Review: No Changes in Pt Med Stat, Meds/Allgs Chart Reviewed, Consent Obtained/Reviewed and Anes Risks/Benef Reviewed Patient Risk: Intermediate Procedure Risk: Low Assessment/Block/Sedation in SS: Assess/Block/Sedation-SS Anesthetic Plan Anesthetic Plan: GA Disposition: Standard PACU
[2024-09-13 06:47] VITALS: BP 133/76; PULSE 54; RESP 18; TEMP 36.3; O2SAT 97; BMI 52.7
[2024-09-13] MEDS: Lactated Ringers 1,000 ML 80 ML IVCONT (07:00)
--- NOTE | 2024-09-13 07:27 | MHC.SHP ---
Pre-Procedural Eval Section A - 24 Hr Update-Section A only Date of Service: 09/13/24 The patient is an INPATIENT: No The patient has been examined within 24 hours of the surgical procedure. The History & Physical has been completed within 30 days and I have reviewed it.: Yes Section B - Complete if H&P > 30 days Chief Complaint: Morbid (severe) obesity due to excess calories Relevant Family History (Specify if Yes): No Relevant Social History: None Present Medications: None Medical History: No relevant PMH History of Previous Operations: No relevant previous surgery Allergies: Allergies Allergy/AdvReac Type Severity Reaction Status Date / Time azithromycin Allergy Mild Unknown Verified 08/08/24 08:09 Penicillins Allergy Mild Unknown Verified 08/08/24 08:09 Sulfa (Sulfonamide Allergy Mild Unknown Verified 08/08/24 08:09 Antibiotics) Review of Systems Sugical H&P ROS: Negative: Constitution, Cardiovascular, Respiratory, Neurological, Psychiatric, Hem-Onc, Allergic/Immunologic, Gastrointestinal, Genitourinary, Musculoskeletal, Integumentary, Endocrine and Eyes/Ears/Nose/Throat Exam Surgical H&P Exam: Normal: HEENT, Normal: Heart, Normal: Lungs, Normal: Extremities, Normal: Abdomen, Normal: Skin and Normal: Neurological Plan Diagnosis/Plan: Unchanged (EGD to assess the stomach's anatomy. Risks of bleeding and perforation were discussed with the patient and he is in agreement with the plan.) I have reviewed the history and physical and performed a pertinent physical examination on my patient. No changes have occurred unless specified. Time Spent With Patient Time: Total time managing care of this patient today ____ minutes.
--- NOTE | 2024-09-13 07:29 | P.BOP_ITS ---
Brief Operative Note Date of Service: 09/13/24 Pre-op diagnosis: Morbid obesity Post-op diagnosis: same Procedure: PROCEDURE DATE: 09/13/2024 PREOPERATIVE DIAGNOSIS: Morbid obesity POSTOPERATIVE DIAGNOSIS: ?Same as above. Normal endoscopy PROCEDURE: [id number] with biopsies Surgeon: Oscar Jeter M.D.. Ph.D. Placement Secretary: None ? Anesthesia: IV sedation Estimated blood loss: ?Minimal FINDINGS AND PROCEDURE: ? OPERATIVE INDICATIONS: ?The patient is a 34 year old male known to me who is interested in bariatric surgery. Based on this information I recommended an upper endoscopy to evaluate the stomach's antomy. Risks and complications of the surgery were discussed with the patient in advance particularly the possibility of perforation or bleeding that may require surgical intervention. The patient understood the risks and was in agreement with the plan. ? PROCEDURE: After informed consent was obtained by the patient, the patient was ?transferred to the Operating Room and was placed in the supine position.? After successful induction of IV sedation, a mouth block was inserted and the patient was placed in the left lateral decubitus position. An upper endoscopy was performed next, the oropharynx and esophagus appeared within the normal limits. There was no hiatal hernia. The z-line was smooth. Two biopsies were obtained from the distal esophagus 2-3 cm proximal to the GE junction and two additional biopsies from the GE junction. The stomach was entered and it appeared to be of normal size. There was no gastritis. There was no stricture or ulcer. A biopsy was obtained from the gastric fundus and the antrum. No significant bleeding was noted from any of the biopsy sites. Retroflexion of the scope confirmed a normal GE junction.The scope was then advanced into the duodenum which appeared to be normal as well. At that point the duodenum ?and the stomach were decompressed and the scope was withdrawn from the patient's mouth. The patient extubated and was transferred in stable condition to the Recovery Room for further care. I was present and performed all steps of the procedure. There were no residents to assist with this case. Alexei Jeter M.D., Ph.D. Surgeon: Adam Jeter MD Anesthesia: MAC Was an Placement Secretary used for this Procedure?: No Estimated blood loss (mL): 0 IV fluids (mL): 400 Urine output (mL): 0 (No [place] to record output) Pathology: other (1) antrum x1, 2) fundus x1, 3) GE junction x2, 4) distal esophagus x2) Condition: stable Disposition: PACU
[2024-09-13 08:14] VITALS: BP 128/72; PULSE 77; RESP 14; TEMP 36.8; O2SAT 99
[2024-09-13 08:15] VITALS: BP 132/65; PULSE 70; RESP 14; O2SAT 98
[2024-09-13 08:20] VITALS: BP 142/64; PULSE 67; RESP 16; O2SAT 96
[2024-09-13 08:25] VITALS: BP 134/67; PULSE 60; RESP 16; O2SAT 96
[2024-09-13 08:40] VITALS: BP 116/74; PULSE 54; RESP 16; TEMP 36.4; O2SAT 96
== END 2024-09-13 09:51 | disposition home or self-care (01) ==
PROVIDERS: PCP Internal Medicine; Visit Provider Surgery
PROC: 0DJ08ZZ Inspection of Upper Intestinal Tract, Via Natural or Artificial Opening Endoscopic (ICD-10-PCS; CPT 43235; principal; 2024-09-13 07:30)
DX: E66.01 Morbid (severe) obesity due to excess calories (principal); Z68.43 Body mass index [BMI] 50.0-59.9, adult; I10 Essential (primary) hypertension; E78.5 Hyperlipidemia, unspecified; M31.0 Hypersensitivity angiitis; K76.0 Fatty (change of) liver, not elsewhere classified; Z79.899 Other long term (current) drug therapy; Z88.0 Allergy status to penicillin; Z88.2 Allergy status to sulfonamides; Z88.1 Allergy status to other antibiotic agents
CPT/HCPCS: 43239; 88305; 88313; 88342; J1100; J1596; J2003; J2250; J2704; J3010

== ENCOUNTER → 2024-09-13 06:11 | Outpatient (BNV) | payer BC, SELFPAY | PROVIDERS: PCP Internal Medicine; Visit Provider Surgery | DX: E66.813 Obesity, class 3 (principal); Z68.43 Body mass index [BMI] 50.0-59.9, adult | CPT/HCPCS: 43239 ==

== ENCOUNTER → 2024-10-02 08:10 | Outpatient (AMB) | payer BC, SELFPAY ==
--- NOTE | 2024-10-02 08:05 | A.OFFWM_ITS ---
Intake Intake Visit Reasons: VIDEO BH Intake Allergies azithromycin Allergy (Mild, Verified 08/08/24 08:09) Unknown Penicillins Allergy (Mild, Verified 08/08/24 08:09) Unknown Sulfa (Sulfonamide Antibiotics) Allergy (Mild, Verified 08/08/24 08:09) Unknown [facility] Medical History Pre-diabetes Cardiomyopathy, unspecified Anxiety and depression Anti-glomerular basement membrane antibody disease ADHD DJD (degenerative joint disease) Hyperlipidemia Hypertension Morbid obesity Fatty liver Surgical History History of biopsy of kidney History of video-assisted thoracoscopic surgery (VATS) Family History Father Heart attack Social History Patient Tobacco Use Status: Current someday Tobacco user Second Hand Smoke Exposure: No Behavioral Health Assessment Weight Management Therapy Therapy Notes Details The patient is a 34-year-old male presenting for a follow-up visit to jeyson kearns the behavioral health assessment, which is part of his surgical weight loss program. He was initially referred by his primary care provider (PCP) for support with weight loss and long-term weight management. The patient has struggled with weight issues throughout his life, which worsened following the diagnosis of an autoimmune condition. His highest recorded weight was approximately 420 lbs a few years ago. Since then, he has been gradually losing weight. He has a prior history of participating in therapy, with his most recent session occurring about two years ago. The patient disclosed a history of trauma and reported experiencing depressive symptoms during the treatment process for his autoimmune condition. He has a diagnosis of Attention Deficit Disorder (ADD) and is unsure whether he was ever formally diagnosed with depression. The patient is currently under the care of psychiatrist Dr. Yury Nunez, whom he sees every 2?3 months. His current medication regimen includes: * Adderall 5 mg * Lexapro 30 mg * Guanfacine 4 mg He reports feeling stable on this medication regimen. The patient denies any history of psychiatric hospitalization or behavioral health crises. He also denies current or past suicidal ideation (SI), self-harm behaviors, or thoughts of harming others. Although the patient initially scored high on the Binge Eating Scale, he denies engaging in stress- or emotional-eating behaviors. PHQ-9 screening results indicate no current depressive symptoms. A mental status examination shows findings within normal limits, suggesting that the patient?s overall functioning is not impaired. From a behavioral health standpoint, the patient is currently stable and demonstrates appropriate coping and functioning. He is cleared and can be submitted for insurance approval when ready. Presenting Concerns Referral Source Initially referred PCP referred Reason for referral Completion of behavioral health assessment as part of process for weight-loss surgery. Precipitating Event Obese Living Situation Current Living Situation Rent At risk of losing current housing? No Satisfied with current living situation? Yes Comments Lives in an in-law apartment at his fathers home. Food/Weight/Diet Expectations of change The initial goal to lose 10% of her weight before surgery, which is about 30 lbs. Ultimate weight goal: 367lbs before surgery. PT started the program at 397Lbs and recent Weight as of 08/30/24 388Lbs Recent weight as of today 10/02/2021: 375Lbs. The patient doesn't have a specific weight goal, but at least would like to be around 200 lbs. Their main goals are related to his health. PT is implementing the following: Current meal plan: using [employer] website. Has a combination of shakes, bars, and 1 meal per day, which is dinner. Exercise plan: doing walks. Scale: Yes History/Relationship with food PT reports he used to do takeout, Whatever is hungry would eat, PT grew up in a big [place] family, surrounded by food, and most dishes were a lot of carbs, like pasta, bread Example of meals before starting the program: Breakfast: at [employer], a sandwich w/ hasbrown and a large coffee with cream and sugar @9am. Lunch: 12:30 pm, would eat at work, whatever the special was. Dinner: Pizza from [employer], and then would have dinner (take out: fast food, [employer]) Snacks: mostly in between lunch and dinner, and after dinner. Candy bars. Drinks/Liquids: 2-3 coffees per day, 1-2 energy drinks per day (pierre) History/Relationship with weight Pt reports he has always been a big person, and as a child, was mostly chubby. He believes weight has always been an issue for him, for the most part. In the last 10 years, the patient's Lowest weight was 195 lbs. and the highest 420 lbs. History/Relationship with dieting Has tried Ketto, Semaglutide, Atkins, and other low-carb diets. Gym membership. [facility] medication for a while, had side effects. Binge Eating Do you frequently eat large amounts of food in short periods of time, not feeling physically hungry? Yes Do you feel out of control when you eat a large amount of food in a short period of time? Yes Do you eat large amounts of food rapidly and typically alone? Yes Night Eating Do you wake up at least once during the night to eat? No If you wake up in the night, do you find that it is necessary to eat something in order to fall back asleep? No Do you have little or no appetite in the morning and feel very hungry in the evening, often overeating between dinner and when you go to bed? Yes Social History Family history and relationship PT is single but dating. Parents are alive, he has 3 sisters His parents when he was a child. HE moved around due to his father being in the [place]. Not close to his mother. close to his dad and sisters. 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 currently taking Adderall and guafazine. Social support Father, step-mom, girlfriend. Network of people at work. Community support PCP who made the referral. Psychiatrist. Hoahaoism/Spirituality None. Cultural/Ethnic information . Legal Involvement and History Current or historical involvement with the legal system? None. Education Highest grade completed HS. College certificate in addictions. Preferred learning style Learn by doing and Visual Currently enrolled in educational program? No Interested in further educational program? Yes Educational Interests/Skills Social work. 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 ) Wants help to find employment? No Meaningful activities Read, play a social game a couple of times a week, and go hiking on the weekends. Financial Situation Describe current financial situation Comfortable Financial assistance? None Service Service? No Mental Health and Addiction Treatment Current/Past substance abuse? No Comments Alcohol: rarely. Cigarettes/Tobacco: on and off. Once in a while will have one. Cannabis/Edibles: None Current/Past addictive behavior concerns? No Psychiatric history PT has previously attended therapy, with the most recent session occurring two years ago. PT reports a history of trauma and experienced depressive symptoms during treatment for an autoimmune condition. PT has been diagnosed with ADD and are unsure if they were ever formally diagnosed with depression. PT currently sees Dr. Yury Nunez, a psychiatrist, every 2-3 months. Their current medications include: -Adderall 5mg -Lexapro 30mg -Guanfacine 4mg PT reports feeling stable with this medication regimen. The patient denies any history of hospitalization or behavioral health crises. They also deny any safety concerns regarding suicidal ideation (SI), self-harm, or harm to others. Medical and Physical Health Summary Additional Medical History not covered in history None additional. Sexual History concerns None reported. Physical exam in the last year? Yes Pain Screening Current pain? No Pain in the last few months? Yes Comments Knee and feet. Medications Is the patient compliant with medications? Yes Does the patient have Hackett Guardian in place? Not applicable Does the patient use complimentary health approaches? Yes (Been to a chiropractor years ago. Does massage Therapy once in a while. ) Trauma/Abuse History History of trauma? Yes (Due to medical issues, in childhood there was family trauma while parents were trough separation, but he doesn't recall.) Questionnaires PHQ-9 Over the last 2 weeks, how often have you been bothered by any of the following problems? 1. Little interest or pleasure in doing things: several days 2. Feeling down, depressed, or hopeless: not at all 3. Trouble falling or staying asleep, or sleeping too much: not at all 4. Feeling tired or having little energy: several days 5. Poor appetite or overeating: not at all 6. Feeling bad about yourself - or that you are a failure or have let yourself or your family down: not at all 7. Trouble concentrating on things, such as reading the newspaper or watching television: not at all 8. Moving or speaking so slowly that other people could have noticed. Or the opposite - being so fidgety or restless that you have been moving around a lot more than usual: several days ( fidgety) 9. Thoughts that you would be better off or of hurting yourself in some way: not at all Total score: 3 Depression Screening Interpretation: Negative Depression Screening Done: Yes 43277 - PHQ-9 Billing: Yes Source: Developed by Drs. Danial Martin, Fe White, Avery Ramos and colleagues, with an educational adryan from [employer]. Binge Eating Scale Group 1 A. I don't feel self-conscious about my wt. or body size when I'm with others. B. I feel concerned about how I look to others, but it normally does not make me fell disappointed with myself C. I do get self-conscious about my appearance and wt. which makes me feel disappointed in myself. D. I feel very self-conscious about my wt. and frequently I feel intense shame and disgust for myself. I try to avoid social contacts because of my self-consci ousness. Response Group 1: D Group 2 A. I don't have any difficulty eating slowly in the proper manner. B. Although I seem to gobble down foods, I don't end up feeling stuffed because of eating to much. C. At times, I tend to eat quickly and then, I feel uncomfortably full af terwards. D. I have the habit of bolting down my food, without really chewing it. When this happens I usually feel uncomfortably stuffed because I've eaten to much. Response Group 2: D Group 3 A. I feel capable to control my eating urges when I want to. B. I feel like I have failed to control my eating more than the average person. C. I feel utterly helpless when it comes to feeling in control of my eating urges. D. Because I feel so helpless about controlling my eating I have become very desperate about trying to get control. Response Group 3: C Group 4 A. I don't have the habit of eating when I'm bored. B. I sometimes eat when I'm bored, but often I'm able to get busy and get my mind off food. C. I have a regular habit of eating when I'm bored, but occasionally, I can use some other activity to get my mind off eating. D. I have a strong habit of eating when I'm bored. Nothing seems to help me breath the habit. Response Group 4: D Group 5 A. I'm usually physically hungry when I eat something. B. Occasionally, I eat something on impulse even though I really am not hungry. C. I have the regular habit of eating foods, that I might not really enjoy, to satisfy a hungry feeling even though physically, I don't need the food. D. Although I'm not physically hungry, I get a hungry feeling in my mouth that only seems to be satisfied when I eat a food, like sandwich, that fills my mouth. Sometimes, when I eat the food to satisfy my mouth hunger, I then spit the food out so I won't gain weight. Response Group 5: C Group 6 A. I don't feel any guilt or self-hate after I overeat. B. After I overeat, occasionally I feel guilt or self-hate. C. Almost all the time I experience strong guilt or self-hate after I overeat. Response Group 6: B Group 7 A. I don't lose total control of my eating when dieting even after periods when I overeat. B. Sometimes when I eat a forbidden food on a diet, I feel like I blew it and eat even more. C. Frequently, I have the habit of saying to myself, I've blown it now, why not go all the way, when I overeat on a diet. When that happens I eat more. D. I have a regular habit of starting a strict diets for myself but I break the diets by going on an eating binge. My life seems to be either a feast or famine. Response Group 7: C Group 8 A. I rarely eat so much food that I feel uncomfortably stuffed afterwards. B. Usually about once a month, I each such a quantity of food, I end up feeling very stuffed. C. I have regular periods during the month when I eat large amounts of food, either at mealtime or at snacks. D. I eat so much food that I regularly feel quite uncomfortable after eating and sometimes a bit nauseous. Response Group 8: D Group 9 A. My level of calorie intake does not go up very high or go down very low on a regular basis. B. Sometimes after I overeat, I will try to reduce my caloric intake to almost nothing to compensate for the excess calories I've eaten. C. I have a regular habit of overeating during the night. It seems that my routine is not to be hungry in the morning but overeat in the evening. D. In my adult years, I have had week-long periods where I practically starve myself. This follows periods when I overeat. It seems I live a life of either feast or famine. Response Group 9: B Group 10 A. I usually am able to stop eating when I want to. I know when enough is enough. B. Every so often, I experience a compulsion to eat which I can't seem to control. C. Frequently, I experience strong urges to eat which I seem unable to control, but at other times I can control my eating urges. D. I feel incapable of controlling urges to eat. I have a fear of not being able to stop eating voluntarily. Response Group 10: C Group 11 A. I don't have any problem stopping eating when I feel full. B. I usually can stop eating when I feel full but occasionally overeat leaving me feeling uncomfortably stuffed. C. I have a problem stopping eating once I start and usually I feel uncomfortably stuffed after I eat a meal. D. Because I have a problem not being able to stop eating when I want, I sometimes have to induce vomiting to relieve my stuffed feeling. Response Group 11: C Group 12 A. I seem to eat just as much when I'm with others, Family social gatherings as when I'm by myself. B. Sometimes, when I'm with other persons, I don't eat as much as I want to eat because I'm self-conscious about my eating. C. Frequently, I eat only a small amount of food when others are present, because I'm very embarrassed about my eating. D. I feel so ashamed about overeating that I pick times to overeat when I know no one will see me. I feel like a closet eater. Response Group 12: D Group 13 A. I eat three meals a day with only an occasional between meal snack. B. I eat 3 meals a day, but I also normally snack between meals. C. When I am snacking heavily, I get in the habit of skipping regular meals. D. There are regular periods when I seem to be continually eating, with no planned meals. Response Group 13: B Group 14 A. I don't think much about trying to control unwanted eating urges. B. At least some of the time, I feel my thoughts are pre-occupied with trying to control my eating urges. C. I feel that frequently I spend much time thinking about how much I ate or about trying not to eat anymore. D. It seems to me that most of my waking hours are pre-occupied by thoughts about eating or not eating. I feel like I'm constantly struggling not to eat. Response Group 14: D Group 15 A. I don't think about food a great deal. B. I have strong craving for food but they last only for brief periods of time. C. I have days when I can't seem to think about anything else but food. D. Most of my days seem to be pre-occupied with thoughts about food. I feel like I live to eat. Response Group 15: B Group 16 A. I usually know whether or not I'm physically hungry. I take the right portion of food to satisfy me. B. Occasionally, I feel uncertain about knowing whether or not I'm physically hungry. A these times it's hard to know how much food I should take to satisfy me. C. Even though I might know how many calories I should eat, I don't have any idea what is a normal amount of food for me. Response Group 16: B Binge Eating Score: 33 Score less than 17 Minimal Risk Score between 18-26 Moderate Risk Score between 27-46 High Risk Assessment & Plan Assessment & Plan (1) ADD (attention deficit disorder): Code(s): F98.8 - Other specified behavioral and emotional disorders with onset usually occurring in childhood and adolescence (2) Trauma and stressor-related disorder: Code(s): F43.9 - Reaction to severe stress, unspecified Plan The patient presents as stable with no current concerns impacting his psychological readiness. He is approved to move forward and may be submitted for insurance authorization as needed. He will be seen again 2-4 weeks after surgery for support. Telehealth Telehealth Telehealth Platform: [employer] Location of provider rendering services: other Location of patient: address on file Patient Identification confirmed using: Name, : Yes Telehealth method: voice only Patient verbally consented to treatment: Yes Patient verbally consented to billing insurance company: Yes Patient informed of any privacy concerns related to visit: Yes Minutes spent on Phone/Video with Pt.: 50 Coding Level of Care Code Established Pt Tele Psytx 45 mins ([id number]) Patient Type Established Diagnoses ADD (attention deficit disorder) F98.8 Trauma and stressor-related disorder F43.9 Additional Codes PHQ-9 - 75696 - PHQ-9 Billing: Yes ([id number]) Time Spent (min) 50
--- OUTSIDE RECORDS SUMMARY | 2024-10-02 08:22 | XMS_ITS | Clinical Summary ---
Author Organization [facility].. Address [address] [address] Phone Care Team Providers Care History Card Clerk Name Role Phone Alma Chavarria MD Primary Care Provider + [phone] Allergies Active Allergy Reactions Criticality Noted Date Comments Erythromycin Other (see comments) 02/03/2021 Penicillins 02/03/2021 Sulfa Antibiotics Other (see comments) 02/04/20 21 Medications amLODIPine-benaz epril (LOTREL) 10-40 MG per capsule Take by mouth 1 (one) time each day 11/26/2020 Active amphetamine-dext roamphetamine XR (Adderall XR) 15 MG 24 hr capsule Take 1 capsule by mouth 1 (one) time each day Active buPROPion XL (WELLBUTRIN XL) 150 MG 24 hr tablet 02/02/2021 Active escitalopram (LEXAPRO) 20 MG tablet 02/02/2021 Active hydrOXYzine (ATARAX) 25 MG tablet Active rosuvastatin (CRESTOR) 10 MG tablet Take 10 mg by mouth at bed time 07/02/2024 Active guanFACINE HCl ER 4 MG tablet sustained-releas e 24 hour Take 1 tablet by mouth 1 (one) time each day 07/02/2024 Active Cholecalciferol (Vitamin D3) 125 MCG (5000 UT) capsule Take 1 capsule by mouth 1 (one) time each day 08/15/2024 Active Dapagliflozin Propanediol 5 MG tablet Take 5 mg by mouth 1 (one) time each day in the morning 30 tablet 5 08/23/2024 Active spironolactone (Aldactone) 25 MG tablet Take 1 tablet (25 mg total) by mouth 1 (one) time each day 90 tablet 3 09/19/2024 09/15/19 26 Active Active Problems Problem Noted Date Diagnosed Date Allergic rhinitis 02/03/2021 Body mass index 30+ - obesity 02/03/2021 Chronic dermatitis 02/03/2021 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 Recurrent depression 02/03/2021 Essential hypertension 08/17/2012 Encounters Date Type Department Care Team Description 09/19/2024 8:45 AM EDT [facility] [address] [address] Tano Grande MD Anti-glomerular basement membrane disease (Primary Dx); Hypertension; Isolated proteinuria; Increased body mass index <Overweight> 08/28/2024 Orders Only [facility] [address] [address] Tano Grande MD 08/23/2024 8:30 AM EDT Office [facility] [address] [address] Tano Grande MD Anti-glomerular basement membrane disease (Primary Dx); Hypertension; Isolated proteinuria; Increased body mass index <Overweight> from Last 3 Months Family History Medical History Relation Comments Hypertension [...] Sign Reading Time Taken Comments Blood Pressure 132/98 09/19/2024 8:57 AM EDT Pulse 67 09/19/2024 8:57 AM EDT Temperature - - Respiratory Rate - - Oxygen Saturation - - Inhaled Oxygen Concentration - - Weight 158 kg (348 lb) 08/23/2024 8:52 AM EDT Height 182.9 cm (6') 01/31/2020 12:00 PM EDT Body Mass Index 47.2 01/31/2020 12:00 PM EDT Plan of Treatment Upcoming Encounters Date Type Department Care Team (Late st Contact Info) Description 03/22/2025 8:30 AM EDT Office Visit [facility] [address] [facility] [address] [place] [phone] Tano Grande MD [address] [address] Health Maintenance Due Date Last Done Comments Hepatitis B Vaccine (1 of 3 - 19+ 3-dose series) 02/09 Pneumococcal Vaccine: Peds ( 0 to 5 Years) and At-Risk Patients (6 to 49 Years) (1 of 2 - PCV) 02/09/2007 Influenza Vaccine (Season Ended) 2025 Procedures Procedure Name Priority Date/Time Associated Diagnosis Comments URINE ALBUMIN / CREATININE RATIO Routine 08/28/2024 7:34 AM EDT URINALYSIS WITH MICROSCOPIC Routine 08/28/2024 7:34 AM EDT MICROSCOPIC EXAMINATION - DO NOT USE Routine 08/28/2024 7:34 AM EDT CBC Routine 08/24/2024 7:56 AM EDT Anti-glomerular basement membrane disease RENAL FUNCTION PANEL Routine 08/24/2024 7:56 AM EDT Anti-glomerular basement membrane disease C3 COMPLEMENT Routine 08/24/2024 7:54 AM EDT Anti-glomerular basement membrane disease C4 COMPLEMENT Routine 08/24/2024 7:54 AM EDT Anti-glomerular basement membrane disease GLOMERULAR BASEMENT MEMBRANE ANTIBODIES Routine 08/24/2024 7:54 AM EDT Anti-glomerular basement membrane disease from Last 3 Months Results * Microscopic Examination (08/28/2024 7:34 AM EDT) WBC, Urine None seen 0 - 5 /hpf [facility] RBC, Urine None seen 0 - 2 /hpf [facility] Squamous Epithelial, Urine None seen 0 - 10 /hpf [facility] Casts None seen None seen /lpf [facility] Bacteria, Urine None seen None seen/Few [facility] 08/28/2024 7:34 AM EDT 08/28/2024 Tano Grande MD LAB MICROBIOLOGY - GENERAL ORDER SHENG Final Result Performing Organization Address [facility]/ZIP Co de Phone Number [facility] [address] [place] [address] * (ABNORMAL) Urine Albumin / Creatinine Ratio (08/28/2024 7:34 AM EDT) Creatinine, Ur 195.9 Not Estab. mg/dL [facility] Albumin, Urine 601.3 Not Estab. ug/mL [facility] Comment: Results confirmed on dilution. Albumin/Creatin ine Ratio 307(H) 0 - 29 mg/g creat [facility] Comment: ? Normal: ?0 - ??29 ? Moderately increased: 30 - 300 ? Severely increased: ? >300 08/28/2024 7:34 AM EDT 08/28/2024 us Tano Grande MD LAB URINE ORDERABLES Final Resul t Performing Organization Address City/[facility]/ZIP Co de Phone Number [facility] [address] [place] [address] * (ABNORMAL) Urinalysis with microscopic (08/28/2024 7:34 AM EDT) Specific [place], Urine 1.025 1.005 - 1.030 [facility] pH Urine 6.0 5.0 - 7.5 [facility] Color, Urine Yellow Yellow [facility] Appearance Urine Clear Clear [facility] WBC Esterase Urine Negative Negative [facility] Protein, Ur 2+(A) Negative/Tra ce [facility] Glucose, Ur 1+(A) Negative [facility] Ketones, Urine Negative Negative [facility] Blood Urine Negative Negative [facility] Bilirubin Urine Negative Negative [facility] Urobilinogen Urine 0.2 0.2 - 1.0 mg/dL [facility] Nitrite, Urine Negative Negative [facility] Microscopic Examination See below: [facility] Comment:Microscopic was arielle cated and was performed. 08/28/2024 7:34 AM EDT 08/28/2024 us Tano Grande MD LAB URINE ORDERABLES Final Resul t [facility] [address] [place] [address] * CBC without diff (08/24/2024 7:56 AM EDT) Pathologist [facility] WBC 6.7 3.4 - 10.8 x10E3/uL [facility] RBC 5.55 4.14 - 5.80 x10E6/uL [facility] Hemoglobin 17.2 13.0 - 17.7 g/dL [facility] Hematocrit 49.7 37.5 - 51.0 % [facility] MCV 90 79 - 97 fL [facility] MCH 31.0 26.6 - 33.0 pg [facility] MCHC 34.6 31.5 - 35.7 g/dL [facility] RDW 12.6 11.6 - 15.4 % [facility] Platelets 282 150 - 450 x10E3/uL [facility] Blood (Blood, Venous) 08/24/2024 7:56 AM EDT 08/24/2024 Tano Grande MD LAB BLOOD ORDERABLES Final [facility]ul t [facility] [address] [place] [address] * (ABNORMAL) Renal funtion panel (08/24/2024 7:56 AM EDT) Glucose 107(H) 70 - 99 mg/dL [facility] BUN 20 6 - 20 mg/dL [facility] Creatinine 1.07 0.76 - 1.27 mg/dL [facility] eGFR CKD-EPI CR 2020 92 >59 mL/min/1.7 3 [facility] BUN/Creatinine Ratio 19 9 - 20 [facility] Sodium 141 134 - 144 mmol/L [facility] Potassium 4.5 3.5 - 5.2 mmol/L [facility] Chloride 105 96 - 106 mmol/L [facility] Bicarbonate (CO2) 19(L) 20 - 29 mmol/L [facility] Calcium 9.4 8.7 - 10.2 mg/dL [facility] Albumin 4.5 4.1 - 5.1 g/dL [facility] Phosphorus 3.7 2.8 - 4.1 mg/dL [facility] Blood (Blood, Venous) 08/24/2024 7:56 AM EDT 08/24/2024 us Tano Grande MD LAB BLOOD ORDERABLES Final Resul t Performing Organization Address City/[facility]/ZIP Co de Phone Number [facility] [address] [place] [address] * Glomerular basement membrane antibodies (08/24/2024 7:54 AM EDT) ANTI-GBM AB <0.2 0.0 - 0.9 units [facility] Blood (Blood, Venous) 08/24/2024 7:54 AM EDT 08/24/2024 us Tano Grande MD LAB BLOOD ORDERABLES Final Resul t [facility] [address] [place] [phone] * C3 complement (08/24/2024 7:54 AM EDT) C3 Complement 160 82 - 167 mg/dL [facility] Blood (Blood, Venous) 08/24/2024 7:54 AM EDT 08/24/2024 us Tano Grande MD LAB BLOOD ORDERABLES Final Resul t [facility] [address] [place] [address] * C4 complement (08/24/2024 7:54 AM EDT) C4 Complement 24 12 - 38 mg/dL [facility] Blood (Blood, Venous) 08/24/2024 7:54 AM EDT 08/24/2024 us Tano Grande MD LAB BLOOD ORDERABLES Final Resul t Performing Organization Address City/[facility]/ZIP Co de Phone Number [facility] [address] [place] [address] from Last 3 Months Insurance [facility] Care Teams History Card Clerk Relationship Specialty Start Date End Date Alma Chavarria MD [address] [place] [address] PCP - General Internal Medicine 12/09/22
== END ==
LOC: HO.HBST 08:10
PROVIDERS: PCP Internal Medicine; Visit Provider Counselor Mental Health
DX: F98.8 Other specified behavioral and emotional disorders with onset usually occurring in childhood and adolescence (principal); F43.9 Reaction to severe stress, unspecified
CPT/HCPCS: 90834

== ENCOUNTER → 2024-10-04 07:48 | Outpatient (REF) | payer BC, SELFPAY ==
--- OUTSIDE RECORDS SUMMARY | 2024-10-04 07:55 | XMS_ITS | Clinical Summary ---
Author Organization [facility].. Address [address] [address] Phone Care Team Providers Care Waste Paper Hammermill Operator Name Role Phone Alma Chavarria MD Primary Care Provider + [phone] Allergies Active Allergy Reactions Criticality Noted Date [...] Office Visit [facility] [address] [address] Tano Grande MD Anti-glomerular basement membrane disease (Primary Dx); Hypertension; Isolated proteinuria; Increased body mass index <Overweight> 08/28/2024 Orders Only [facility] [address] [address] Tano Grande MD 08/23/2024 8:30 AM EDT Office Visit [facility] [address] [address] Tano Grande MD Anti-glomerular basement membrane disease [...] Visit [facility] [address] [facility] [address] [place] [phone] Tano Grande MD [address] [address] Health Maintenance Due Date Last [...] None seen 0 - 5 /hpf [facility] RBC, Urine None seen 0 - 2 /hpf [facility] Squamous Epithelial, Urine None seen 0 - 10 /hpf [facility] Casts None seen None seen /lpf [facility] Bacteria, Urine None seen None seen/Few [facility] 08/28/2024 7:34 AM EDT 08/28/2024 Tano Grande MD LAB MICROBIOLOGY - GENERAL ORDER SHENG Final Result Performing Organization Address [facility]/ZIP Co de Phone Number [facility] [address] [place] [address] * (ABNORMAL) Urine Albumin / Creatinine Ratio (08/28/2024 7:34 AM EDT) Creatinine, Ur 195.9 Not Estab. mg/dL [facility] Albumin, Urine 601.3 Not Estab. ug/mL [facility] Comment: Results confirmed on dilution. Albumin/Creatin ine Ratio 307(H) 0 - 29 mg/g creat [facility] Comment: ? Normal: ?0 - ??29 ? Moderately increased: 30 - 300 ? Severely increased: ? >300 08/28/2024 7:34 AM EDT 08/28/2024 us Tano Grande MD LAB URINE ORDERABLES Final Resul t Performing Organization Address City/[facility]/ZIP Co de Phone Number [facility] [address] [place] [address] * (ABNORMAL) Urinalysis with microscopic (08/28/2024 7:34 AM EDT) Specific [place], Urine 1.025 1.005 - 1.030 [facility] pH Urine 6.0 5.0 - 7.5 [facility] Color, Urine Yellow Yellow [facility] Appearance Urine Clear Clear [facility] [place] WBC Esterase Urine Negative Negative [facility] Protein, Ur 2+(A) Negative/Tra ce [facility] Glucose, Ur 1+(A) Negative [facility] [phone] Ketones, Urine Negative Negative [facility] [place] [place] [phone] Blood Urine Negative Negative [facility] Bilirubin Urine Negative Negative [facility] [phone] Urobilinogen Urine 0.2 0.2 - 1.0 mg/dL [facility] [phone] Nitrite, Urine Negative Negative [facility] [place] [phone] Microscopic Examination See below: [facility] Comment:Microscopic was arielle cated and was performed. 08/28/2024 7:34 AM EDT 08/28/2024 us Tano Grande MD LAB URINE ORDERABLES Final Resul t [facility] [address] [place] [address] * CBC without diff (08/24/2024 7:56 AM EDT) Pathologist [facility] WBC 6.7 3.4 - 10.8 x10E3/uL [facility] RBC 5.55 4.14 - 5.80 x10E6/uL [facility] Hemoglobin 17.2 13.0 - 17.7 g/dL [facility] Hematocrit 49.7 37.5 - 51.0 % [facility] MCV 90 79 - 97 fL [facility] MCH 31.0 26.6 - 33.0 pg [facility] MCHC 34.6 31.5 - 35.7 g/dL [facility] RDW 12.6 11.6 - 15.4 % [facility] Platelets 282 150 - 450 x10E3/uL [facility] Blood (Blood, Venous) 08/24/2024 7:56 AM EDT 08/24/2024 Tano Grande MD LAB BLOOD ORDERABLES Final [facility]ul t [facility] [address] [place] [address] * (ABNORMAL) Renal funtion panel (08/24/2024 7:56 AM EDT) Glucose 107(H) 70 - 99 mg/dL [facility] BUN 20 6 - 20 mg/dL [facility] Creatinine 1.07 0.76 - 1.27 mg/dL [facility] eGFR CKD-EPI CR 2020 92 >59 mL/min/1.7 3 [facility] BUN/Creatinine Ratio 19 9 - 20 [facility] Sodium 141 134 - 144 mmol/L [facility] Potassium 4.5 3.5 - 5.2 mmol/L [facility] Chloride 105 96 - 106 mmol/L [facility] Bicarbonate (CO2) 19(L) 20 - 29 mmol/L [facility] Calcium 9.4 8.7 - 10.2 mg/dL [facility] Albumin 4.5 4.1 - 5.1 g/dL [facility] Phosphorus 3.7 2.8 - 4.1 mg/dL [facility] Blood (Blood, Venous) 08/24/2024 7:56 AM EDT 08/24/2024 us Tano Grande MD LAB BLOOD ORDERABLES Final Resul t Performing Organization Address City/[facility]/ZIP Co de Phone Number [facility] [address] [place] [address] * Glomerular basement membrane antibodies (08/24/2024 7:54 AM EDT) ANTI-GBM AB <0.2 0.0 - 0.9 units [facility] Blood (Blood, Venous) 08/24/2024 7:54 AM EDT 08/24/2024 us Tano Grande MD LAB BLOOD ORDERABLES Final Resul t [facility] [address] [place] [phone] * C3 complement (08/24/2024 7:54 AM EDT) C3 Complement 160 82 - 167 mg/dL [facility] Blood (Blood, Venous) 08/24/2024 7:54 AM EDT 08/24/2024 us Tano Grande MD LAB BLOOD ORDERABLES Final Resul t [facility] [address] [place] [address] * C4 complement (08/24/2024 7:54 AM EDT) C4 Complement 24 12 - 38 mg/dL [facility] Blood (Blood, Venous) 08/24/2024 7:54 AM EDT 08/24/2024 us Tano Grande MD LAB BLOOD ORDERABLES Final Resul t Performing Organization Address City/[facility]/ZIP Co de Phone Number [facility] [address] [place] [address] from Last 3 Months Insurance [facility] Care Teams Waste Paper Hammermill Operator Relationship Specialty Start Date End Date Alma Chavarria MD [address] [place] [address] PCP - General Internal Medicine 12/09/22
== END ==
LOC: HO.SL 07:48
PROVIDERS: PCP Internal Medicine; Visit Provider Surgery
DX: R06.83 Snoring (principal); E66.01 Morbid (severe) obesity due to excess calories; E78.5 Hyperlipidemia, unspecified; I10 Essential (primary) hypertension
CPT/HCPCS: 95806

== ENCOUNTER → 2024-10-04 08:23 | Outpatient (BNV) | payer BC, SELFPAY | PROVIDERS: PCP Internal Medicine; Visit Provider Internal Medicine | DX: R06.83 Snoring (principal) | CPT/HCPCS: 95806 ==

== ENCOUNTER 2024-10-29 09:11 | Outpatient (REF) | payer BC, SELFPAY ==
--- NOTE | ~2024-10-29 | FL_ITS ---
EXAMINATION: XR FLUOROSCOPY UPPER GI SERIES CLINICAL INFORMATION: Preoperative bariatric surgery. COMPARISON: None TECHNIQUE: Fluoroscopic air contrast upper GI examination was performed utilizing standard techniques with thin and thick barium and effervescent granules. Numerous spot images were obtained. Several fluoroscopic image hold cine sequences were also obtained. FINDINGS: UPPER GI SERIES: Lateral cine images of the oropharynx and hypopharynx demonstrate normal swallow mechanism with normal epiglottic inversion and soft palate elevation. No laryngeal penetration, glottic or subglottic aspiration identified. No nasopharyngeal reflux present. Hypopharyngeal structures appear normal without evidence of mass or diverticulum. There was no significant cricopharyngeal achalasia. Dual and single contrast images of the esophagus demonstrate normal caliber, contour, and mucosal pattern. No evidence of stricture, mass, or ulcerations identified. Esophageal peristalsis was normal. No evidence of hiatus hernia identified. No significant gastroesophageal reflux was seen during the course of the examination and on reflux views. Dual contrast and single contrast images of the stomach demonstrated normal contour and mucosal pattern without evidence of mass, ulceration, or other abnormality. Contrast freely passed into the gastric antrum and duodenal bulb without delay. Single and air-contrast images of the duodenal bulb demonstrate no abnormality. The duodenal sweep has a normal appearance, course, and mucosal fold appearance. FLUOROSCOPY TIME: 2 minutes, 38 seconds Number of Spot Images:8 Number of cines obtained: 10 DOSE AREA PRODUCT: 5034 uGy-m2 (microgray-meter squared) FL/FL upper GI w air IMPRESSION: Normal upper GI examination. Electronically signed by: George Vazquez MD 10/29/2024 09:53 AM EDT
--- OUTSIDE RECORDS SUMMARY | 2024-10-29 09:23 | XMS_ITS | Clinical Summary ---
Author Organization [facility].. Address [address] [address] Phone Care Team Providers Care Manager Trade Marketing Name Role Phone Alma Chavarria MD Primary Care Provider + [phone] Allergies Active Allergy Reactions Criticality Noted Date [...] Office Visit [facility] [address] [address] Tano Grande MD Anti-glomerular basement membrane disease (Primary Dx); Hypertension; Isolated proteinuria; Increased body mass index <Overweight> 08/28/2024 Orders Only [facility] [address] [address] Tano Grande MD 08/23/2024 8:30 AM EDT Office Visit [facility] [address] [address] Tano Grande MD Anti-glomerular basement membrane disease [...] Visit [facility] [address] [facility] [address] [place] [phone] Tano Grande MD [address] [address] Health Maintenance Due Date Last [...] None seen 0 - 5 /hpf [facility] RBC, Urine None seen 0 - 2 /hpf [facility] Squamous Epithelial, Urine None seen 0 - 10 /hpf [facility] Casts None seen None seen /lpf [facility] Bacteria, Urine None seen None seen/Few [facility] 08/28/2024 7:34 AM EDT 08/28/2024 Tano Grande MD LAB MICROBIOLOGY - GENERAL ORDER SHENG Final Result Performing Organization Address [facility]/ZIP Co de Phone Number [facility] [address] [place] [address] * (ABNORMAL) Urine Albumin / Creatinine Ratio (08/28/2024 7:34 AM EDT) Creatinine, Ur 195.9 Not Estab. mg/dL [facility] Albumin, Urine 601.3 Not Estab. ug/mL [facility] Comment: Results confirmed on dilution. Albumin/Creatin ine Ratio 307(H) 0 - 29 mg/g creat [facility] Comment: ? Normal: ?0 - ??29 ? Moderately increased: 30 - 300 ? Severely increased: ? >300 08/28/2024 7:34 AM EDT 08/28/2024 us Tano Grande MD LAB URINE ORDERABLES Final Resul t Performing Organization Address City/[facility]/ZIP Co de Phone Number [facility] [address] [place] [address] * (ABNORMAL) Urinalysis with microscopic (08/28/2024 7:34 AM EDT) Specific [place], Urine 1.025 1.005 - 1.030 [facility] pH Urine 6.0 5.0 - 7.5 [facility] Color, Urine Yellow Yellow [facility] Appearance Urine Clear Clear [facility] WBC Esterase Urine Negative Negative [facility] Protein, Ur 2+(A) Negative/Tra ce [facility] Glucose, Ur 1+(A) Negative [facility] Ketones, Urine Negative Negative [facility] Blood Urine Negative Negative [facility] Bilirubin Urine Negative Negative [facility] Urobilinogen Urine 0.2 0.2 - 1.0 mg/dL [facility] Nitrite, Urine Negative Negative [facility] Microscopic Examination See below: [facility] Comment:Microscopic was arielle cated and was performed. 08/28/2024 7:34 AM EDT 08/28/2024 us Tano Grande MD LAB URINE ORDERABLES Final Resul t [facility] [address] [place] [address] * CBC without diff (08/24/2024 7:56 AM EDT) Pathologist [facility] WBC 6.7 3.4 - 10.8 x10E3/uL [facility] RBC 5.55 4.14 - 5.80 x10E6/uL [facility] Hemoglobin 17.2 13.0 - 17.7 g/dL [facility] Hematocrit 49.7 37.5 - 51.0 % [facility] MCV 90 79 - 97 fL [facility] MCH 31.0 26.6 - 33.0 pg [facility] MCHC 34.6 31.5 - 35.7 g/dL [facility] RDW 12.6 11.6 - 15.4 % [facility] Platelets 282 150 - 450 x10E3/uL [facility] Blood (Blood, Venous) 08/24/2024 7:56 AM EDT 08/24/2024 Tano Grande MD LAB BLOOD ORDERABLES Final [facility]ul t [facility] [address] [place] [address] * (ABNORMAL) Renal funtion panel (08/24/2024 7:56 AM EDT) Glucose 107(H) 70 - 99 mg/dL [facility] BUN 20 6 - 20 mg/dL [facility] Creatinine 1.07 0.76 - 1.27 mg/dL [facility] eGFR CKD-EPI CR 2020 92 >59 mL/min/1.7 3 [facility] BUN/Creatinine Ratio 19 9 - 20 [facility] Sodium 141 134 - 144 mmol/L [facility] Potassium 4.5 3.5 - 5.2 mmol/L [facility] Chloride 105 96 - 106 mmol/L [facility] Bicarbonate (CO2) 19(L) 20 - 29 mmol/L [facility] Calcium 9.4 8.7 - 10.2 mg/dL [facility] Albumin 4.5 4.1 - 5.1 g/dL [facility] Phosphorus 3.7 2.8 - 4.1 mg/dL [facility] Blood (Blood, Venous) 08/24/2024 7:56 AM EDT 08/24/2024 us Tano Grande MD LAB BLOOD ORDERABLES Final Resul t Performing Organization Address City/[facility]/ZIP Co de Phone Number [facility] [address] [place] [address] * Glomerular basement membrane antibodies (08/24/2024 7:54 AM EDT) ANTI-GBM AB <0.2 0.0 - 0.9 units [facility] Blood (Blood, Venous) 08/24/2024 7:54 AM EDT 08/24/2024 us Tano Grande MD LAB BLOOD ORDERABLES Final Resul t [facility] [address] [place] [address] * C3 complement (08/24/2024 7:54 AM EDT) C3 Complement 160 82 - 167 mg/dL [facility] Blood (Blood, Venous) 08/24/2024 7:54 AM EDT 08/24/2024 us Tano Grande MD LAB BLOOD ORDERABLES Final Resul t [facility] [address] [place] [address] * C4 complement (08/24/2024 7:54 AM EDT) C4 Complement 24 12 - 38 mg/dL [facility] Blood (Blood, Venous) 08/24/2024 7:54 AM EDT 08/24/2024 us Tano Grande MD LAB BLOOD ORDERABLES Final Resul t Performing Organization Address City/[facility]/ZIP Co de Phone Number [facility] [address] [place] [address] from Last 3 Months Insurance [facility] Care Teams Manager Trade Marketing Relationship Specialty Start Date End Date Alma Chavarria MD [address] [place] [address] PCP - General Internal Medicine 12/09/22
== END 2024-10-29 09:12 | disposition home or self-care (01) ==
LOC: HO.XRAY 09:11
PROVIDERS: PCP Internal Medicine; Visit Provider Surgery
DX: E66.01 Morbid (severe) obesity due to excess calories (principal); E78.5 Hyperlipidemia, unspecified; I10 Essential (primary) hypertension
CPT/HCPCS: 74246

== ENCOUNTER → 2024-10-29 09:14 | Outpatient (BNV) | payer BC, SELFPAY | PROVIDERS: PCP Internal Medicine; Visit Provider Radiology Diagnostic Radiology | DX: Z01.818 Encounter for other preprocedural examination (principal) | CPT/HCPCS: 74246 ==

== ENCOUNTER 2024-11-06 08:20 | Outpatient (AMB) | payer BC, SELFPAY ==
--- OUTSIDE RECORDS SUMMARY | 2024-11-06 08:27 | XMS_ITS | Clinical Summary ---
Author Organization [facility].. 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 Name Role Phone Alma Chavarria MD Primary Care Provider + [phone] Allergies Active Allergy Reactions Criticality Noted Date [...] Office Visit [facility] [address] [address] Tano Grande MD Anti-glomerular basement membrane disease (Primary Dx); Hypertension; Isolated proteinuria; Increased body mass index <Overweight> 08/28/2024 Orders Only [facility] [address] [address] Tano Grande MD 08/23/2024 8:30 AM EDT Office Visit [facility] [address] [address] Tano Grande MD Anti-glomerular basement membrane disease [...] [facility] [address] [facility] [address] [place] [phone] Tano Grande MD [address] [address] Health Maintenance Due Date Last [...] None seen 0 - 5 /hpf [facility] RBC, Urine None seen 0 - 2 /hpf [facility] Squamous Epithelial, Urine None seen 0 - 10 /hpf [facility] Casts None seen None seen /lpf [facility] Bacteria, Urine None seen None seen/Few [facility] 08/28/2024 7:34 AM EDT 08/28/2024 Tano Grande MD LAB MICROBIOLOGY - GENERAL ORDER SHENG Final Result Performing Organization Address [facility]/ZIP Co de Phone Number [facility] [address] [place] [address] * (ABNORMAL) Urine Albumin / Creatinine Ratio (08/28/2024 7:34 AM EDT) Creatinine, Ur 195.9 Not Estab. mg/dL [facility] Albumin, Urine 601.3 Not Estab. ug/mL [facility] Comment: Results confirmed on dilution. Albumin/Creatin ine Ratio 307(H) 0 - 29 mg/g creat [facility] Comment: ? Normal: ?0 - ??29 ? Moderately increased: 30 - 300 ? Severely increased: ? >300 08/28/2024 7:34 AM EDT 08/28/2024 us Tano Grande MD LAB URINE ORDERABLES Final Resul t Performing Organization Address City/[facility]/ZIP Co de Phone Number [facility] [address] [place] [address] * (ABNORMAL) Urinalysis with microscopic (08/28/2024 7:34 AM EDT) Specific [place], Urine 1.025 1.005 - 1.030 [facility] pH Urine 6.0 5.0 - 7.5 [facility] Color, Urine Yellow Yellow [facility] Appearance Urine Clear Clear [facility] WBC Esterase Urine Negative Negative [facility] Protein, Ur 2+(A) Negative/Tra ce [facility] Glucose, Ur 1+(A) Negative [facility] Ketones, Urine Negative Negative [facility] Blood Urine Negative Negative [facility] Bilirubin Urine Negative Negative [facility] Urobilinogen Urine 0.2 0.2 - 1.0 mg/dL [facility] Nitrite, Urine Negative Negative [facility] Microscopic Examination See below: [facility] [phone] Comment:Microscopic was arielle cated and was performed. 08/28/2024 7:34 AM EDT 08/28/2024 us Tano Grande MD LAB URINE ORDERABLES Final Resul t [facility] [address] [place] [address] * CBC without diff (08/24/2024 7:56 AM EDT) Pathologist [facility] WBC 6.7 3.4 - 10.8 x10E3/uL [facility] RBC 5.55 4.14 - 5.80 x10E6/uL [facility] Hemoglobin 17.2 13.0 - 17.7 g/dL [facility] Hematocrit 49.7 37.5 - 51.0 % [facility] MCV 90 79 - 97 fL [facility] MCH 31.0 26.6 - 33.0 pg [facility] MCHC 34.6 31.5 - 35.7 g/dL [facility] RDW 12.6 11.6 - 15.4 % [facility] Platelets 282 150 - 450 x10E3/uL [facility] Blood specimen (specimen) Venous blood / Unknown 08/24/2024 7:56 AM EDT 08/24/2024 us Tano Grande MD LAB BLOOD ORDERABLES Final Resul t [facility] [address] [place] [address] * (ABNORMAL) Renal funtion panel (08/24/2024 7:56 AM EDT) Glucose 107(H) 70 - 99 mg/dL [facility] BUN 20 6 - 20 mg/dL [facility] Creatinine 1.07 0.76 - 1.27 mg/dL [facility] eGFR CKD-EPI CR 2020 92 >59 mL/min/1.7 3 [facility] BUN/Creatinine Ratio 19 9 - 20 [facility] Sodium 141 134 - 144 mmol/L [facility] Potassium 4.5 3.5 - 5.2 mmol/L [facility] Chloride 105 96 - 106 mmol/L [facility] Bicarbonate (CO2) 19(L) 20 - 29 mmol/L [facility] Calcium 9.4 8.7 - 10.2 mg/dL [facility] Albumin 4.5 4.1 - 5.1 g/dL [facility] Phosphorus 3.7 2.8 - 4.1 mg/dL [facility] Blood specimen (specimen) Venous blood / Unknown 08/24/2024 7:56 AM EDT 08/24/2024 Tano Grande MD LAB BLOOD ORDERABLES Final Resul t Performing Organization Address City/[facility]/ZIP Co de Phone Number [facility] [address] [place] [address] * Glomerular basement membrane antibodies (08/24/2024 7:54 AM EDT) ANTI-GBM AB <0.2 0.0 - 0.9 units [facility] Blood specimen (specimen) Venous blood / Unknown 08/24/2024 7:54 AM EDT 08/24/2024 Tano Grande MD LAB BLOOD ORDERABLES Final Resul t [facility] [address] [place] [phone] * C3 complement (08/24/2024 7:54 AM EDT) C3 Complement 160 82 - 167 mg/dL [facility] Blood specimen (specimen) Venous blood / Unknown 08/24/2024 7:54 AM EDT 08/24/2024 us Tano Grande MD LAB BLOOD ORDERABLES Final Resul t [facility] [address] [place] [address] * C4 complement (08/24/2024 7:54 AM EDT) C4 Complement 24 12 - 38 mg/dL [facility] Blood specimen (specimen) Venous blood / Unknown 08/24/2024 7:54 AM EDT 08/24/2024 Tano Grande MD LAB BLOOD ORDERABLES Final Resul t [facility] [address] [place] [address] from Last 3 Months Insurance [facility] Care Teams Boat Master Relationship Specialty Start Date End Date Alma Chavarria MD [address] [place] [address] PCP - General Internal Medicine 12/09/22
--- NOTE | 2024-11-06 09:10 | MHC.OFFVISWM ---
VS Expanded 11/06/24 09:52 Height 6 ft Weight 365 lb 8 oz BMI 49.6 Body Fat % 56.3 Body Fat Mass 205.9 Fat Free Mass 159.8 Visceral Fat Rating 30 Body Water % 31.5 Body Water Mass 115.2 Basal Metabolic Rate/Score 1,945 Intake Visit Reasons: TV Pre Op LSG 11/20/24 Allergies azithromycin Allergy (Mild, Verified 11/06/24 09:11) Unknown Penicillins Allergy (Mild, Verified 11/06/24 09:11) Unknown Sulfa (Sulfonamide Antibiotics) Allergy (Mild, Verified 11/06/24 09:11) Unknown Medication List - Last Reconciled 11/06/24 by Adam Jeter MD amlodipine-benazepril 10-40 mg 1 cap PO DAILY cholecalciferol (vitamin D3) 125 mcg PO DAILY dapagliflozin propanediol 5 mg PO QAM dextroamphetamine-amphetamine 5 mg (Adderall) 5 mg PO DAILY escitalopram oxalate (Lexapro) 30 mg PO DAILY ondansetron 4 mg PO Q12H pantoprazole 40 mg PO DAILY polyethylene glycol 3350 17 grams PO DAILY rosuvastatin 10 mg PO DAILY sucralfate 10 mL PO BID HPI HPI TV Pre Op LSG 11/20/24: Details: Start time: 9.00am, End time: 9.30am ?I spent 25 minutes speaking with the patient on the phone plus an additional 5 minutes reviewing and updating records for a total of 30 minutes HPI Comments Details: Overall weight loss: 31.8lbs, or 8% Is doing 2 Premier premade protein shakes, 2 Fit Crunch protein bars and one meal (13 forks of protein and 13 forks of salad or vegetables) Gym x2-3/wk and walking outside [facility] Medical History Pre-diabetes Cardiomyopathy, unspecified Anxiety and depression Anti-glomerular basement membrane antibody disease ADHD DJD (degenerative joint disease) Hyperlipidemia Hypertension Morbid obesity Fatty liver Surgical History History of biopsy of kidney History of video-assisted thoracoscopic surgery (VATS) Family History Father Heart attack Social History Patient Tobacco Use Status: Current someday Tobacco user Second Hand Smoke Exposure: No Telehealth Telehealth Telehealth Platform: Telephone Location of provider rendering services: practice address Location of patient: address on file Patient Identification confirmed using: Name, : Yes Telehealth method: voice only Patient verbally consented to treatment: Yes Patient verbally consented to billing insurance company: Yes Patient informed of any privacy concerns related to visit: Yes Minutes spent on Phone/Video with Pt.: 30 Assessment & Plan Assessment & Plan (1) Morbid obesity: Code(s): E66.01 - Morbid (severe) obesity due to excess calories Category: Medical Plan: 1. Plan for lap sleeve gastrectomy including upper GI endoscopy. All tests has been completed and reviewed and the patient is cleared for the surgery. ?If diaphragmatic or ventral hernias are present at time of surgery, these will be repaired laparoscopically as well. Risks and complications were discussed in detail including possible conversion to an open procedure, anastomotic leak, bleeding requiring transfusion, small bowel obstruction, , DVT and pulmonary embolism, cardiac, or pulmonary complications, as custodial complications such as anastomotic ulcer, insufficient weight loss and vitamin deficiencies. I emphasized the importance of close follow-up, adherence to instructions and good communication. So far she has proven to be an excellent communicator and very compliant with all our directions accomplishing a great weight loss. I believe that she is an excellent candidate and she is ready. 2. Preop prescriptions were provided and explained the purpose of each one. Need to be purchased preop. Start Pantoprazole now as you get it from the pharmacy, 1 pill per day. Sucralfate and Zofran are for after surgery as needed. 3. Bowel prep: please do 7 packets ?of Miralax mixing each one with a an 8oz glass of water, crystal light, gatorade zero, or propel ?on 11/18/24 and the same amount on 11/19/24. The Miralax you begin with one packet at a time in 8oz water or crystal light, gatorade zero, or propel ?as early in the day as you can and you do them back to back until you finish them. Continue the protein shakes during ?the bowel prep. 4. Needs to purchase 1oz medicine cups . 5. Needs to purchase Children's liquid Tylenol for postop pain control. 6. She needs to stop the Dapaglifozin as of tomorrow 11/07/24. Avoid aspirin, motrin, Advil, Aleve, Meloxicam, Excedrin, Ibuprofen, Naproxyn. Tylenol is OK. 7. She needs to purchase the Celebrate 4:1 protein shakes or the Celebrate multivitamins from the hospital's gift shop, chewable or pills whatever you prefer. 8. Will do basic preop blood work-up any day between Tuesday05/17/22 and Tuesday05/21/22 fasting for 12 hours and is scheduled to see the Anesthesiologist prior to the day of surgery. 9. Importance of adherence to postop folllow-up and recommendations was underscored and she understands that. 10. Stop food and bars as of tomorrow 11/07/24 and continue with 5 premade PREMIER protein shakes (8oz of Premier shake per shake and NOT the entire bottle) at 8am-10am, 11am-1pm, 2pm-4pm, 5pm-7pm and at 8pm-10pm 11. No soups, broths or V8 12. The patient's?medical?history has been reviewed and they are considered low risk for post op DVT and therefore DVT prophylaxis is not considered necessary. Travel after surgery was reviewed. The patient has not disclosed any travel plans during the first 30 days after surgery and they have been advised that within the first 30 days after surgery any bus, plane, train or car travel over 2 hours in duration is contraindicated due to the possibility of developing blood clots from immobility. Any travel, needs to include periods of ambulation of 10 minutes in duration every 2 hours.? Patient was instructed to discuss any plans for travel during this period with their bariatric surgeon.? 13. As of tomorrow, please check your blood pressure daily in the morning. If your blood pressure is: Below 120/70: do not take the Amlodipine/Benazepril 121/71 to 135/85: take HALF Amlodipine/Benazepril Over 136/86: take the whole Amlodipine/Benazepril 14. Please take at the day of surgery the following medications: Amlodipine/Benazepril if the blood pressure that day is high enough to justify it based on the parameters at the previous bullet point. 15. Absolutely no smoking or vaping, or marijuana until the surgery and for at least the first 4 weeks. Only nicotine patches are allowed. 16. Send me weight measurements tomorrow 11/07/24, on Tuesday11/13/24 and then on Tuesday11/20/24, the day of surgery before you go to the hospital. 17. Avoid any steroids by mouth for any reason. Let me know if someone prescribes them to you 18. These instructions supersede anything else you read in the handbook, anything you watched in videos or classes or you were told by any other provider. If there is any conflict, you follow the above instructions and nothing else. Orders: Orders Comprehensive Met. Panel Today E66.01 - Morbid (severe) obesity due to excess calories, E78.5 - Hyperlipidemia, unspecified, I10 - Essential (primary) hypertension TSH reflex Free T4 Today E66.01 - Morbid (severe) obesity due to excess calories, E78.5 - Hyperlipidemia, unspecified, I10 - Essential (primary) hypertension Type and Screen Today E66.01 - Morbid (severe) obesity due to excess calories, E78.5 - Hyperlipidemia, unspecified, I10 - Essential (primary) hypertension Partial Thromboplastin Time Today E66.01 - Morbid (severe) obesity due to excess calories, E78.5 - Hyperlipidemia, unspecified, I10 - Essential (primary) hypertension Lipid Panel Today E66.01 - Morbid (severe) obesity due to excess calories, E78.5 - Hyperlipidemia, unspecified, I10 - Essential (primary) hypertension Complete Blood Count Auto Diff Today E66.01 - Morbid (severe) obesity due to excess calories, E78.5 - Hyperlipidemia, unspecified, I10 - Essential (primary) hypertension Prothrombin Time INR Today E66.01 - Morbid (severe) obesity due to excess calories, E78.5 - Hyperlipidemia, unspecified, I10 - Essential (primary) hypertension C Reactive Protein Today E66.01 - Morbid (severe) obesity due to excess calories, E78.5 - Hyperlipidemia, unspecified, I10 - Essential (primary) hypertension Hemoglobin A1c Today E66.01 - Morbid (severe) obesity due to excess calories, E78.5 - Hyperlipidemia, unspecified, I10 - Essential (primary) hypertension Insulin Today E66.01 - Morbid (severe) obesity due to excess calories, E78.5 - Hyperlipidemia, unspecified, I10 - Essential (primary) hypertension Medications: New pantoprazole 40 mg PO DAILY 90 tabs 0RF K21.9 - Gastro-esophageal reflux disease without esophagitis sucralfate 10 mL PO BID 600 mL 2RF K21.9 - Gastro-esophageal reflux disease without esophagitis ondansetron Only take one every 12 hours as needed if you have nausea 4 mg PO Q12H 20 tabs 0RF nausea and vomiting R11.0 - Nausea polyethylene glycol 3350 Mix each measuring cup with 8oz of water, Crystal light, or Gatorade zero, or Propel and do 7 measuring cups on 11/18/24 and another 7 measuring cups on 11/19/24 17 grams PO DAILY 238 grams 0RF Z01.818 - Encounter for other preprocedural examination
[2024-11-06 09:52] VITALS: BMI 49.6
== END 2024-11-06 10:05 | disposition home or self-care (01) ==
LOC: HO.HBS 08:20
PROVIDERS: PCP Internal Medicine; Visit Provider Surgery
DX: E66.01 Morbid (severe) obesity due to excess calories (principal)
CPT/HCPCS: 99214

== ENCOUNTER → 2024-11-14 07:25 | Outpatient (BNVA) | payer BC, SELFPAY | PROVIDERS: PCP Internal Medicine; Visit Provider Physician Assistant Surgical ==

== ENCOUNTER 2024-11-20 06:13 | Inpatient (IN) | payer BC, SELFPAY ==
--- OUTSIDE RECORDS SUMMARY | 2024-10-26 07:21 | XMS_ITS | Clinical Summary ---
Author Organization [facility].. Address [address] [address] Phone Care Team Providers Care Legal Technician Name Role Phone Alma Chavarria MD Primary Care Provider + [phone] Allergies Active Allergy Reactions Criticality Noted Date [...] Office Visit [facility] [address] [address] Tano Grande MD Anti-glomerular basement membrane disease (Primary Dx); Hypertension; Isolated proteinuria; Increased body mass index <Overweight> 08/28/2024 Orders Only [facility] [address] [address] Tano Grande MD 08/23/2024 8:30 AM EDT Office Visit [facility] [address] [address] Tano Grande MD Anti-glomerular basement membrane disease [...] Visit [facility] [address] [facility] [address] [place] [phone] Tano Grande MD [address] [address] Health Maintenance Due Date Last [...] None seen 0 - 5 /hpf [facility] RBC, Urine None seen 0 - 2 /hpf [facility] Squamous Epithelial, Urine None seen 0 - 10 /hpf [facility] Casts None seen None seen /lpf [facility] Bacteria, Urine None seen None seen/Few [facility] 08/28/2024 7:34 AM EDT 08/28/2024 Tano Grande MD LAB MICROBIOLOGY - GENERAL ORDER SHENG Final Result Performing Organization Address [facility]/ZIP Co de Phone Number [facility] [address] [place] [address] * (ABNORMAL) Urine Albumin / Creatinine Ratio (08/28/2024 7:34 AM EDT) Creatinine, Ur 195.9 Not Estab. mg/dL [facility] Albumin, Urine 601.3 Not Estab. ug/mL [facility] Comment: Results confirmed on dilution. Albumin/Creatin ine Ratio 307(H) 0 - 29 mg/g creat [facility] Comment: ? Normal: ?0 - ??29 ? Moderately increased: 30 - 300 ? Severely increased: ? >300 08/28/2024 7:34 AM EDT 08/28/2024 us Tano Grande MD LAB URINE ORDERABLES Final Resul t Performing Organization Address City/[facility]/ZIP Co de Phone Number [facility] [address] [place] [address] * (ABNORMAL) Urinalysis with microscopic (08/28/2024 7:34 AM EDT) Specific [place], Urine 1.025 1.005 - 1.030 [facility] pH Urine 6.0 5.0 - 7.5 [facility] Color, Urine Yellow Yellow [facility] Appearance Urine Clear Clear [facility] WBC Esterase Urine Negative Negative [facility] Protein, Ur 2+(A) Negative/Tra ce [facility] Glucose, Ur 1+(A) Negative [facility] [phone] Ketones, Urine Negative Negative [facility] Blood Urine Negative Negative [facility] Bilirubin Urine Negative Negative [facility] Urobilinogen Urine 0.2 0.2 - 1.0 mg/dL [facility] Nitrite, Urine Negative Negative [facility] Microscopic Examination See below: [facility] Comment:Microscopic was arielle cated and was performed. 08/28/2024 7:34 AM EDT 08/28/2024 us Tano Grande MD LAB URINE ORDERABLES Final Resul t [facility] [address] [place] [address] * CBC without diff (08/24/2024 7:56 AM EDT) Pathologist [facility] WBC 6.7 3.4 - 10.8 x10E3/uL [facility] RBC 5.55 4.14 - 5.80 x10E6/uL [facility] Hemoglobin 17.2 13.0 - 17.7 g/dL [facility] Hematocrit 49.7 37.5 - 51.0 % [facility] MCV 90 79 - 97 fL [facility] MCH 31.0 26.6 - 33.0 pg [facility] MCHC 34.6 31.5 - 35.7 g/dL [facility] RDW 12.6 11.6 - 15.4 % [facility] Platelets 282 150 - 450 x10E3/uL [facility] Blood (Blood, Venous) 08/24/2024 7:56 AM EDT 08/24/2024 Tano Grande MD LAB BLOOD ORDERABLES Final Resul t [facility] [address] [place] [address] * (ABNORMAL) Renal funtion panel (08/24/2024 7:56 AM EDT) Glucose 107(H) 70 - 99 mg/dL [facility] BUN 20 6 - 20 mg/dL [facility] Creatinine 1.07 0.76 - 1.27 mg/dL [facility] eGFR CKD-EPI CR 2020 92 >59 mL/min/1.7 3 [facility] BUN/Creatinine Ratio 19 9 - 20 [facility] Sodium 141 134 - 144 mmol/L [facility] Potassium 4.5 3.5 - 5.2 mmol/L [facility] Chloride 105 96 - 106 mmol/L [facility] Bicarbonate (CO2) 19(L) 20 - 29 mmol/L [facility] Calcium 9.4 8.7 - 10.2 mg/dL [facility] Albumin 4.5 4.1 - 5.1 g/dL [facility] Phosphorus 3.7 2.8 - 4.1 mg/dL [facility] Blood (Blood, Venous) 08/24/2024 7:56 AM EDT 08/24/2024 us Tano Grande MD LAB BLOOD ORDERABLES Final Resul t Performing Organization Address City/[facility]/ZIP Co de Phone Number [facility] [address] [place] [address] * Glomerular basement membrane antibodies (08/24/2024 7:54 AM EDT) ANTI-GBM AB <0.2 0.0 - 0.9 units [facility] Blood (Blood, Venous) 08/24/2024 7:54 AM EDT 08/24/2024 us Tano Grande MD LAB BLOOD ORDERABLES Final Resul t [facility] [address] [place] [phone] * C3 complement (08/24/2024 7:54 AM EDT) C3 Complement 160 82 - 167 mg/dL [facility] Blood (Blood, Venous) 08/24/2024 7:54 AM EDT 08/24/2024 us Tano Grande MD LAB BLOOD ORDERABLES Final Resul t [facility] [address] [place] [address] * C4 complement (08/24/2024 7:54 AM EDT) C4 Complement 24 12 - 38 mg/dL [facility] Blood (Blood, Venous) 08/24/2024 7:54 AM EDT 08/24/2024 us Tano Grande MD LAB BLOOD ORDERABLES Final Resul t Performing Organization Address City/[facility]/ZIP Co de Phone Number [facility] [address] [place] [address] from Last 3 Months Insurance [facility] Care Teams Legal Technician Relationship Specialty Start Date End Date Alma Chavarria MD [address] [place] [address] PCP - General Internal Medicine 12/09/22
[2024-11-12 12:40] VITALS: BMI 48.8
[2024-11-14 07:22] LABS: MANUAL DIFF FLAG NO
[2024-11-14 07:49] LABS: Basophils Percent Auto 0.4 % (0-2); Eosinophils Absolute Auto 0.2 X10*3/uL (0.0-0.4); Eosinophils Percent Auto 2.1 % (0-4); Hematocrit 50.2 % (42.0-52.0); Hemoglobin 17.4 g/dl (14.0-18.0); Imm Gran Abs Auto 0.02 X10*3/uL (0.00-0.03); Imm Gran Pct Auto 0.3 % (0.0-0.4); Lymphocytes Absolute Auto 2.3 X10*3/uL (1.2-4.9); Lymphocytes Percent Auto 32.7 % (20-40); Mean Corpuscular HGB Conc 34.7 g/dl (31.0-36.0); Mean Corpuscular Hemoglobin 29.6 pg (27.0-33.0); Mean Corpuscular Volume 85.4 fL (80.0-98.0); Mean Platelet Volume 10.9 fL (9.4-12.4); Monocytes Absolute Auto 0.6 X10*3/uL (0.1-1.2); Monocytes Percent Auto 7.8 % (2-11); Neutrophils Percent Auto 56.7 % (45-73); Platelet Count 303 X10*3/uL (160-400); Red Blood Count 5.88 X10*6/uL (4.60-5.80); Red Cell Distribution Width 12.5 % (11.0-16.0); White Blood Count 7.1 X10*3/uL (4.8-10.8)
[2024-11-14 07:56] LABS: Estimated Average Glucose 105 mg/dL; Hemoglobin A1C 154.9168 umol/L; Hemoglobin A1c % 5.3 % (<6.0); Total Hemoglobin (HGBA1C) 4482.6801 umol/L
[2024-11-14 07:57] LABS: INTERNATIONAL NORM RATIO 1.1 (0.9-1.1); Prothrombin Time 12.3 SEC (10.9-12.4)
[2024-11-14 08:00] LABS: Partial Thromboplastin Time 35.8 SEC (26.0-36.8)
[2024-11-14 08:45] LABS: Alanine Aminotransferase 69 U/L (0-40); Albumin Level 4.6 g/dL (3.5-5.0); Anion Gap 17 (12-20); Aspartate Amino Transferase 51 U/L (5-37); Blood Urea Nitrogen 26 mg/dL (9-16); C Reactive Protein 0.78 mg/dL (< or = 0.50); Carbon Dioxide 20 mmol/L (22-29); Chloride 106 mmol/L (96-108); Cholesterol 122 mg/dL (<200); Creatinine Clr Calc Pharmacy 146.9; Estimated Glomerular Filt Rate > 60; Glucose Random 89 mg/dL (60-115); HDL Cholesterol 22 mg/dL (>40); LDL Cholesterol Calculated 64 mg/dL (<100); Potassium 4.2 mmol/L (3.3-5.1); Sodium 139 mmol/L (135-145); Total Protein 7.6 g/dL (6.5-8.0); Triglycerides 183 mg/dL (<150)
[2024-11-14 08:59] LABS: Insulin 11 uU/mL (2-29); TSH reflex Free T4 1.12 uIU/mL (0.32-4.0)
[2024-11-14 13:10] LABS: Alkaline Phosphatase 57 U/L (39-117)
--- NOTE | 2024-11-15 11:50 | HO.ANESPROP2 ---
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 Stable at 09/2024 office visit with nml renal function Anesthesia Pre-Procedure Meds Is the patient on any of the following meds?: GLP1/DPP4 PMFSH Active Problems Active Problems: All Active Problems Abnormal EKG (Acute) Vitamin D deficiency (Acute) Anti-glomerular basement membrane antibody disease (Acute) ADHD (Acute) DJD (degenerative joint disease) (Acute) Hyperlipidemia (Acute) Hypertension (Acute) Morbid obesity (Acute) Past Medical History Medical History Pre-diabetes Cardiomyopathy, unspecified Anxiety and depression Anti-glomerular basement membrane antibody disease ADHD DJD (degenerative joint disease) Hyperlipidemia Hypertension Morbid obesity Fatty liver Family History Family History Father Heart attack Family history of problems with anesthesia: No Surgical History Surgical History History of esophagogastroduodenoscopy (EGD) History of biopsy of kidney History of video-assisted thoracoscopic surgery (VATS) History of Problems with Anesthesia: No Social History Social History Housing Other:: lives in an in-law apt @ parent's home Are you a primary healthcare administrator to a significant other at home: No Do you presently have visiting nurse or other home services: No Patient Tobacco Use Status: Current someday Tobacco user Second Hand Smoke Exposure: No Substance Use Type Other:: marijuana use once per year Substance Use Frequency: Occasionally Have you been hit, kicked, punched, or otherwise hurt by someone within the past year? If so, by whom?: No Spiritual Healthcare Practices: no [facility] Practices: no Cultural Healthcare Practices: no Are you DNR?: No Advance Directives: No (father is primary contact) Advance Directives Information Provided: Yes (as above noted) Advance Directives on File: No Poor oral hygiene: No (2 implants) Meds Allergies Allergy/AdvReac Type Severity Reaction Status Date / Time azithromycin Allergy Mild ? Verified 11/14/24 07:33 rash-childhood allergy Penicillins Allergy Mild ? Verified 11/14/24 07:33 rash-childhood allergy Sulfa (Sulfonamide Allergy Mild ? Verified 11/14/24 07:33 Antibiotics) rash-childhood allergy Home Medications ?Medication ?Instructions ?Recorded ?Confirmed ?Last Taken ?Type amlodipine 10 mg-benazepril 40 mg 1 cap PO BEDTIME 08/07/24 11/20/24 11/20/24 History capsule dextroamphetamine-amphetamine 5 mg 5 mg PO BID 08/07/24 11/20/24 11/19/24 History tablet (Adderall) escitalopram oxalate 20 mg tablet 30 mg PO BEDTIME 08/07/24 11/20/24 11/19/24 History (Lexapro) rosuvastatin 10 mg tablet 10 mg PO BEDTIME 08/07/24 11/20/24 11/19/24 History dapagliflozin propanediol 5 mg 5 mg PO BEDTIME 09/11/24 11/20/24 11/05/24 History tablet cholecalciferol (vitamin D3) 125 125 mcg PO BEDTIME 11/12/24 11/20/24 11/05/24 History mcg (5,000 unit) capsule pantoprazole 40 mg tablet,delayed 40 mg PO BEDTIME 11/12/24 11/20/24 11/19/24 History release spironolactone 25 mg tablet 25 mg PO BEDTIME 11/12/24 11/20/24 11/19/24 History Exam Height,Weight and Vital Signs: Height 6 ft Weight 163.293 kg Pertinent Lab Results Pertinent Lab Results: Laboratory Tests 11/14/24 11/14/24 07:14 07:21 WBC 7.1 RBC 5.88 H Hgb 17.4 Hct 50.2 MCV 85.4 MCH 29.6 MCHC 34.7 RDW 12.5 Plt Count 303 MPV 10.9 Immature Gran % (Auto) 0.3 Neut % (Auto) 56.7 Lymph % (Auto) 32.7 Dane % (Auto) 7.8 Eos % (Auto) 2.1 Baso % (Auto) 0.4 Lymph # (Auto) 2.3 Dane # (Auto) 0.6 Eos # (Auto) 0.2 Baso # (Auto) 0.0 Abs Immat Gran (auto) 0.02 Absolute Neuts (auto) 4.0 Absolute Nucleated RBC 0.000 Nucleated RBC % (auto) 0.0 PT 12.3 INR 1.1 APTT 35.8 Sodium 139 Potassium 4.2 Chloride 106 Carbon Dioxide 20 L Anion Gap 17 BUN 26 H Creatinine 1.10 Estim Creat Clear Calc 146.9 Estimated GFR > 60 Random Glucose 89 Estimat Average Glucose 105 Hemoglobin A1c % 5.3 Insulin Level 11 Calcium 10.0 D Total Bilirubin 1.0 AST 51 H ALT 69 H Alkaline Phosphatase 57 C-Reactive Protein 0.78 H Total Protein 7.6 Albumin 4.6 Triglycerides 183 H Cholesterol 122 LDL Cholesterol, Calc 64 HDL Cholesterol 22 L TSH 1.12 Blood Type B Positive Antibody Screen NEGATIVE Narrative Narrative: EKG 08/2024 Vent. Rate : 82 BPM Atrial Rate : 82 BPM P-R Int : 162 ms QRS Dur : 102 ms QT Int : 406 ms P-R-T Axes : 53 2 144 degrees QTcB Int : 474 ms Normal sinus rhythm ST & T wave abnormality, consider lateral ischemia Prolonged QT Abnormal ECG No previous ECGs available ECHO 2023 Summary Suboptimal image quality due to patient's body habitus. The right ventricle is normal in size and function. The left ventricular size is normal. The left ventricular wall thickness is upper normal. The LV systolic function is mildly reduced . The left ventricular ejection fraction is 40-45 %. There is mild global hypokinesis of the left ventricle. Unable to assess diastolic function due to E/A fusion. Coronary Artery Angiography 06/2024: Image numbers below refer to series 404 unless otherwise noted. There is no coronary artery calcification. Dominance: Right dominant. Left Main: The ostium is normally positioned. The left main coronary artery is normal. Left Anterior Descending: No significant plaque or stenosis. First diagonal is a normal medium-sized branch seen on images 61. Distal LAD is not well seen due to its small size. Left Circumflex Artery: No significant plaque or stenosis. OM1 is a normal medium-sized branch arising early seen on image 65. Distal circumflex is small and not well seen. Right Coronary Artery: The ostium is normally positioned. It is a large vessel with no significant plaque or stenosis. Distal RCA supplies the PDA and a posterior lateral ventricular branch. IMPRESSION: No evidence of hemodynamically significant coronary artery disease. Exam is mildly to moderately degraded by body habitus. Assessment and Plan Assessment Anesthesia Assessment: Chart Reviewed Final Anesthetic Review Family History of Problems with Anesthesia: No History of Problems with Anesthesia: No Documented by User: Sravani Kidd MD 11/20/24 08:20 PMF Past Medical History Medical History Pre-diabetes Cardiomyopathy, unspecified Anxiety and depression Anti-glomerular basement membrane antibody disease ADHD DJD (degenerative joint disease) Hyperlipidemia Hypertension Morbid obesity Fatty liver Family History Family History Father Heart attack Surgical History Surgical History History of esophagogastroduodenoscopy (EGD) History of biopsy of kidney History of video-assisted thoracoscopic surgery (VATS) Social History Social History Housing Other:: lives in an in-law apt @ parent's home Are you a primary healthcare administrator to a significant other at home: No Do you presently have visiting nurse or other home services: No Patient Tobacco Use Status: Current someday Tobacco user Second Hand Smoke Exposure: No Substance Use Type Other:: marijuana use once per year Substance Use Frequency: Occasionally Have you been hit, kicked, punched, or otherwise hurt by someone within the past year? If so, by whom?: No Spiritual Healthcare Practices: no [facility] Practices: no Cultural Healthcare Practices: no Are you DNR?: No Advance Directives: No (father is primary contact) Advance Directives Information Provided: Yes (as above noted) Advance Directives on File: No Poor oral hygiene: No (2 implants) Meds Allergies Allergy/AdvReac Type Severity Reaction Status Date / Time azithromycin Allergy Mild ? Verified 11/14/24 07:33 rash-childhood allergy Penicillins Allergy Mild ? Verified 11/14/24 07:33 rash-childhood allergy Sulfa (Sulfonamide Allergy Mild ? Verified 11/14/24 07:33 Antibiotics) rash-childhood allergy Home Medications ?Medication ?Instructions ?Recorded ?Confirmed ?Last Taken ?Type amlodipine 10 mg-benazepril 40 mg 1 cap PO BEDTIME 08/07/24 11/20/24 11/20/24 History capsule dextroamphetamine-amphetamine 5 mg 5 mg PO BID 08/07/24 11/20/24 11/19/24 History tablet (Adderall) escitalopram oxalate 20 mg tablet 30 mg PO BEDTIME 08/07/24 11/20/24 11/19/24 History (Lexapro) rosuvastatin 10 mg tablet 10 mg PO BEDTIME 08/07/24 11/20/24 11/19/24 History dapagliflozin propanediol 5 mg 5 mg PO BEDTIME 09/11/24 11/20/24 11/05/24 History tablet cholecalciferol (vitamin D3) 125 125 mcg PO BEDTIME 11/12/24 11/20/24 11/05/24 History mcg (5,000 unit) capsule pantoprazole 40 mg tablet,delayed 40 mg PO BEDTIME 11/12/24 11/20/24 11/19/24 History release spironolactone 25 mg tablet 25 mg PO BEDTIME 11/12/24 11/20/24 11/19/24 History Exam Airway Mallampati Class: III TM Dist: >3cm Neck ROM: Full Loose/Missing/Broken Teeth: No Heart: RRR Lungs: CTA Assessment and Plan Final Anesthetic Review NPO: Yes ASA Class: III Final Preanesthetic Review: Meds/Allgs Chart Reviewed, Consent Obtained/Reviewed and Anes Risks/Benef Reviewed Patient Risk: Intermediate Procedure Risk: Intermediate Anesthetic Plan Anesthetic Plan: GA Disposition: Standard PACU
[2024-11-20] VITALS (17 sets, daily range): BP systolic 128–157; BP diastolic 60–96; PULSE 54–89; RESP 12–19; TEMP 36.1–37; O2SAT 92–98; BMI 49.8
[2024-11-20] MEDS: Lactated Ringers 1,000 ML 999 ML IV (06:37)
[2024-11-20] MEDS: Aprepitant 32 MG/4.4 ML VIAL IVPUSH (06:38)
--- NOTE | 2024-11-20 07:26 | MHC.SHP ---
Pre-Procedural Eval Section A - 24 Hr Update-Section A only Date of Service: 11/20/24 The patient is an INPATIENT: Yes The patient has been examined within 24 hours of the surgical procedure. The History & Physical has been completed within 30 days and I have reviewed it.: Yes Section B - Complete if H&P > 30 days Chief Complaint: Morbid Obesity Relevant Family History (Specify if Yes): No Relevant Social History: None Present Medications: None Medical History: No relevant PMH History of Previous Operations: No relevant previous surgery Allergies: Allergies Allergy/AdvReac Type Severity Reaction Status Date / Time azithromycin Allergy Mild ? Verified 11/14/24 07:33 rash-childhood allergy Penicillins Allergy Mild ? Verified 11/14/24 07:33 rash-childhood allergy Sulfa (Sulfonamide Allergy Mild ? Verified 11/14/24 07:33 Antibiotics) rash-childhood allergy Review of Systems Sugical H&P ROS: Negative: Constitution, Cardiovascular, Respiratory, Neurological, Psychiatric, Hem-Onc, Allergic/Immunologic, Gastrointestinal, Genitourinary, Musculoskeletal, Integumentary, Endocrine and Eyes/Ears/Nose/Throat Exam Surgical H&P Exam: Normal: HEENT, Normal: Heart, Normal: Lungs, Normal: Extremities, Normal: Abdomen, Normal: Skin and Normal: Neurological Plan Diagnosis/Plan: Unchanged I have reviewed the history and physical and performed a pertinent physical examination on my patient. No changes have occurred unless specified. Time Spent With Patient Time: Total time managing care of this patient today ____ minutes.
--- NOTE | 2024-11-20 07:27 | P.BOP_ITS ---
Brief Operative Note Date of Service: 11/20/24 Pre-op diagnosis: Morbid obesity with comorbidities (see below) Post-op diagnosis: same Procedure: INITIAL PATIENT BMI ON PRESENTATION AT OUR OFFICE: 53.9 kg/m2 LAST BMI BEFORE SURGERY: 48.3 kg/m2 COMORBIDITIES: Hypertension, ADHD, depression, anxiety, hyperlipidemia, DJD, liver fibrosis, anti-GB autoimmune syndrome ?The patient presented to the Weight Management Program with significant obesity that was negatively impacting the patient's comorbidities as listed above.? The program is a phased program with a special focus on preoperative medical weight management to promote substantial weight loss and prepare the patients for the second phase of the program: bariatric surgery. The patient participated in an intensive weekly lifestyle ?intervention and exercise program during which the patient ?has lost between the initial office visit and the last preoperative visit 41.8 lbs, or 10.5% of initial actual body weight. It was deemed appropriate for the patient to now have bariatric surgery. In light of the current Covid-19 pandemic and the well documented strong association of obesity and increased risk of worse outcomes if infected with Covid-19 (REFERENCES: https://pubmed.ncbi.nlm.nih.gov/73788585/ ,? https://pubmed.ncbi.nlm.nih.gov/74403945/ ), any delay in undergoing bariatric surgery may lead to the patient's worsening health condition and increased?risk of more severe Covid-19 disease if infected. In addition a recent?study from [facility] published in [facility] on 06/08/2021 ([email or web address]) found that, among patients with obesity, substantial weight loss achieved with surgery was associated with improved outcomes of COVID-19 infection. The findings suggest that obesity can be a modifiable risk factor for the severity of COVID-19 infection. In addition, the patient met the BMI-criteria for bariatric surgery based on the BMI on initial presentation. The patient should not be penalized for achieving such weight loss because ?it is not sustainable long-term without surgical intervention and it was achieved in preparation for bariatric surgery ?under my direction and based on my published research ([email or web address]).[email or web address] and? https://www.soard.org/article/L1190-8798(69)26730-X/pdf ) ?that a 10% preoperative weight loss improves long-term weight loss after surgery and reduces perioperative complications.? Insurance carriers such as [facility] have endorsed my recommendations ?and have included in their policies criteria to include a 10% preoperative weight loss requirement. PROCEDURE: Esophago-gastroscopy laparoscopic lysis of adhesions, laparoscopic sleeve gastrectomy and laparoscopic gastropexy INDICATIONS: This is a 34 year-old male who was electively scheduled for laparoscopic, possibly open sleeve gastrectomy. The risks and complications of the procedure were discussed with the patient in advance, particularly the possibility of ; pulmonary embolism; staple line leak; bleeding; GERD; cardiac, pulmonary, or renal complications; as well as long-term problems such as insufficient weight loss, vitamin deficiency, strictures, or ulcers. The patient understood all the risks, and was in agreement to proceed with surgery. DESCRIPTION OF PROCEDURE: After informed consent was obtained from the patient, the patient was given preoperative antibiotics, and was transferred to the operating room. After successful induction of general anesthesia, pneumatic compression devices were placed on both lower extremities. An upper endoscopy was performed next. The oropharynx and esophagus appeared to be within normal limits. There was no diaphragmatic hernia present. The stomach was entered. Then after all fluid and air were suctioned and the stomach was fully decompressed, the scope was withdrawn and secured in the mid esophagus. The patient was then prepped and draped in the usual sterile manner, and abdominal access was established at the right upper quadrant with the Mark technique. A 12 mm blunt port was inserted, and the abdomen was insufflated with CO2 to a pressure of 15 mmHg. Under direct visualization, additional ports were placed, specifically two 5 mm Versi-step ports to the left upper quadrant, and a 5 mm Versi-Step port to the right upper quadrant. 1% lidocaine plain was used to infiltrate all port sites as well as all fascia defects. Following that, the patient was placed in a steep reverse Trendelenburg position. An additional 5 mm port was placed to the right flank for the Mediflex retractor that was used to retract the left lobe of the liver. The gastro-esophageal fat pad was opened with the ultrasonic device (Alejandrina grissom, [employer]) and the anterior esophagus and hiatus were exposed. The angle of His was opened with the ultrasonic device the fundus of the stomach from any diaphragmatic and splenic attachments. I then opened the gastrocolic ligament between the transverse colon and the greater curvature of the stomach with the ultrasonic device to enter the lesser sac and facilitate the ligation of the short gastric vessels. I started at a mid-point along the greater curvature and using the Thunderbeat, all short gastric vessels were divided all the way to the angle of His until the left martín was completely dissected at its entirety. I then divided the gastro-colic ligament distally to a distance of about 3-4 cm proximal to the pylorus. There were extensive congenital adhesions between the pancreas and posterior gastric wall. Those were lysed completely with the ultrasonic device. Adhesiolysis took approximately 45 min to complete. The stomach was then divided transversely with two Endo STEPHANIE-45 purple and four STEPHANIE-60 articulating purple loads using the [employer] stapler and loads. Every effort was made that the gastric sleeve had a tubular shape and an even caliber throughout. Once the sleeve resection was completed, the staple line of the gastric sleeve was reinforced with Hemoclips. The resected stomach was retrieved without difficulty from the Mark port. A gastropexy was then performed in order to prevent postoperative GERD and partial gastric volvulus. Several interrupted 2.0 Surgidac sutures were placed between the sleeve's staple line and the previously divided greater omentum and gastro-colic ligament using the Endo-Stitch device. ?An upper endoscopy was performed. There was no narrowing at the GE junction. The scope was easily advanced all the way to the pylorus which was clearly visualized. There was no narrowing anywhere and the sleeve's caliber was even throughout. The sleeve's staple line was inspected and there was no evidence of ischemia, bleeding or dehiscence. At that point the gastroscope was withdrawn from the patient?s mouth while we were decompressing the bowel and the stomach from any remaining air. I looked into the lesser sac to see how the sleeve was situating and it was situating well. There was no bleeding from the staple line, spleen, or short gastric vessels. The Mediflex retractor was removed, and the undersurface of the liver was inspected and there was no bleeding. The patient was placed in supine position. I closed the fascial defect of the 12 mm port site with a figure of eight #1 Polysorb suture. Then 30cc Ropivacaine plain with 10 mg of Dexamethasone were used to infiltrate the fascial closure as well as all skin incisions. At this point, the abdomen was deflated, all ports were removed under direct vision, and no bleeding was noted from any of the port sites. The skin incisions were irrigated with saline and were closed with 4-0 absorbable monofilament sutures. Steri-Strips and OpSites were used to cover all incisions. The patient was extubated and was transferred in stable condition to the recovery room for further care. I was present and performed all kennedy parts of the procedure. Mr. Zamudio was the [facility] account management assistant. There were no residents to assist with this case. Alexei Jeter MD, PhD, FACS Surgeon: Adam Jeter MD Anesthesia: GETA, local and other (TAP block) Was an Box Toe Cementer used for this Procedure?: No Box Toe Cementer: Lance Zamudio Estimated blood loss (mL): 10 IV fluids (mL): 2,100 Urine output (mL): 0 (No [place] to record output) Pathology: other (1) Stomach, 2) Gastro-esophageal fat pad) Condition: stable Disposition: PACU
--- NOTE | 2024-11-20 07:34 | PM.PNGS ---
Subjective Subjective Date of Service: 11/20/24 Interval history: Feels well. Mild incisional pain. She is tolerating phase 1 bariatric diet Physical Exam Vital Signs: Vital Signs: Last Vital Signs Temp 98.5 F 11/20/24 06:17 Pulse 68 11/20/24 06:17 Resp 19 11/20/24 06:17 BP 148/96 H 11/20/24 06:17 Pulse Ox 96 11/20/24 06:17 O2 Del Method Room Air 11/20/24 06:17 BMI result Body Mass Index 48.8 GI: Inspection: Yes normal to inspection, Yes incision (clean, dry and intact) and Yes obesity Palpation (GI): Soft to palpation Extrem: Right lower extremity: normal to inspection (no calf tenderness) Left lower extremity: normal to inspection (no calf tenderness) Objective Data Active Medications Lactated Ringer's (Lr) 1,000 mls @ 999 mls/hr IV .Q1H1M RASHEED Stop: 11/20/24 08:15 Last Admin: 11/20/24 06:37 Dose: 999 mls/hr Documented By: MIRIAN Lactated Ringer's (Lr) 1,000 mls @ 100 mls/hr IVCONT .Q10H [facility] Stop: 11/20/24 09:14 Labs 11/14/24 07:21 11/14/24 07:21 Procedures Date of Service Date of Service: 11/20/24 Progress Note: A&P Assessment and plan (1) Morbid obesity: Status: Acute Assessment and Plan: s/p laparoscopic sleeve gastrectomy, lysis of adhesions and gastropexy Doing well Will check am labs and if OK the patient will be discharged home (2) Anti-glomerular basement membrane antibody disease: Status: Acute (3) DJD (degenerative joint disease): Status: Acute (4) Hyperlipidemia: Status: Acute (5) Hypertension: Status: Acute (6) ADHD: Status: Acute (7) Liver fibrosis: Status: Acute (8) S/P laparoscopic sleeve gastrectomy: Status: Acute (9) Congenital intra-abdominal adhesions: Status: Acute Time Spent With Patient Time: Total time managing care of this patient today ____ minutes. Quality Stroke Does the patient have a stroke diagnosis?: No VTE Prior VTE?: No VTE Risk Level:: Surgical - moderate VTE Device Contraindication: N/A - Device Ordered VTE Drug Contraindication: N/A - Med Ordered
[2024-11-20] MEDS: levoFLOXacin/D5W 500 MG/100 ML PIGGYBACK 100 MG IV (07:40)
--- NOTE | 2024-11-20 09:54 | PM.DS ---
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 DISCHARGE DIAGNOSIS: same, s/p laparoscopic sleeve gastrectomy ? PAST SURGICAL HISTORY: none ? PROCEDURE: upper endoscopy, laparoscopic sleeve gastrectomy ? DISCHARGE SUMMARY: ? History of Present Illness: ? The patient is a?34 year-old male with a BMI of?53.9? kg/m2 and associated co-morbidities as described above. The patient had extensive work-up,lost?41.8 lbs preoperatively and was electively scheduled for laparoscopic, possible open sleeve gastrectomy and gastropexy. Risks and complications of the surgery were discussed with the patient in advance, particularly the possibility of , pulmonary embolism, anastomotic leak, bleeding, bowel injury, GERD, cardiac, renal or pulmonary complications. The patient understood all the risks and was in agreement with the surgical plan. ? Hospital Course: ? The patient underwent an uneventful laparoscopic sleeve gastrectomy with gastropexy on the day of admission. Postoperatively, the patient was transferred to the surgical floor. The patient received IV Acetaminophen and IV dilaudid for pain control. Patient was started on bariatric phase 1 diet POD #0. On postoperative day one, the patient was feeling well without nausea, vomiting, fevers, or tachycardia. The patient had some mild incisional pain and the abdomen was soft. ? On the morning of postoperative day one, the patient was continued on 1 ounce of water or ice every half hour. During the day, the patient did fairly well, having some incisional pain, but able to ambulate adequately and to tolerate liquids well. ? Since the patient is doing well, we decided that the patient was ready to be discharged. The patient was given instructions to follow-up with me next week and to call my office for any fever over 101, persistent abdominal pain, nausea, vomiting, GERD, symptoms of DVT such as calf tenderness, or leg swelling, or pulmonary embolism such as chest pain or shortness of breath. The patient was also instructed to drink 40-60 ounces of liquids per day using the 1-ounce cups. The patient had been given prescriptions for Tylenol for pain, Zofran prn for nausea, and pantoprazole and carafate previously. The patient was encouraged to ambulate and use the incentive spirometer. The patient was allowed to shower, but no baths, and encouraged to stay active at home. All of these instructions were given to the patient personally. All questions were answered and the patient understood all instructions, the instructions were also given to the patient in print. Time Attestation Total time managing care of this patient today: 25 mintues. Discharge Coordination Time (in mins): 25 Quality: Safe Use of Opioids Does Pt have an Active Cancer Diagnosis on the Problem List?: No Quality: Stroke Does the patient have a stroke diagnosis?: No Physical Exam Vital Signs: Vital Signs: Last Vital Signs Temp 98.5 F 11/20/24 06:17 Pulse 68 11/20/24 06:17 Resp 19 11/20/24 06:17 BP 148/96 H 11/20/24 06:17 Pulse Ox 96 11/20/24 06:17 O2 Del Method Room Air 11/20/24 06:17 BMI result Body Mass Index 48.8 DS: Data Data Completed and Pending Pending studies at discharge: Pending at discharge 11/20/24 09:18 Surgical [PTH] Routine Discharge Plan Discharge Anticipated Discharge Date/Time: 11/21/24 10:00 Patient Disposition: Home, Self-Care Discharge Diagnosis: s/p laparoscopic sleeve gastrectomy Referrals: Alma Chavarria MD [Primary Care Provider] - 1 Week Discharge Medications: Continued spironolactone 25 mg tablet 25 mg PO BEDTIME pantoprazole 40 mg tablet,delayed release (DR/EC) 40 mg PO BEDTIME cholecalciferol (vitamin D3) 125 mcg (5,000 unit) capsule 125 mcg PO BEDTIME dextroamphetamine-amphetamine 5 mg capsule,extended release 24hr 1 cap PO BID amlodipine-benazepril 10-40 mg capsule 1 cap PO BEDTIME escitalopram oxalate [Lexapro] 20 mg tablet 30 mg PO BEDTIME rosuvastatin 10 mg tablet 10 mg PO BEDTIME Held dapagliflozin propanediol 5 mg tablet 5 mg PO BEDTIME Hold Instructions: until discussed with Dr Jeter Discontinued guanfacine 4 mg tablet extended release 24 hr 4 mg PO DAILY Discharge Orders: Discharge Order (Routine); Ordered 11/21/24 Ordered By: Lance Zamudio Activity on Discharge: No heavy lifting Stand Alone Forms: Patient Portal Discharge page Print Language: Mongolian Care Plan Goals: weight loss Health Concerns: morbid obesity Plan of Treatment: No tub baths, sex or returning to work until discussed at first post op appointment. No exercise, alcohol, tobacco or illegal drug use. Continue to use incentive spirometer hourly while awake. Walk in home for 5- 10 minutes every 2 hours during the first week. Follow all instructions in the bariatric handbook and call with any questions.Discharge Instructions 1. Please call your doctor or come back to the emergency room should any new symptoms arise. 2. You will receive a courtesy call from [facility] 24-48 hours after discharge. 3. Activity: abstain from alcohol, practice limited stair climbing, no bending, no driving, no exercise, no illicit substances, no lifting, no sex, no tub bath, no work. 4. Diet: continue as discussed with Dr. Jeter. 5. Dressing Change/Wound Care: Your incision is covered by clear bandages and guaze underneath. If the area is tender, you may apply an ice pack for short intervals (no more than 20 minutes on, followed by at least 20 minutes off). Do not apply heat. Do not use creams, lotions, or topical antibiotics unless instructed to do so by your surgeon. These can cause infection or allergic reaction. 6. Call your doctor if: - Your temperature exceeds 101.5 F - You experience excessive pain or swelling - You have an unexpected reaction to medication - You have excessive bleeding - You experience continued vomiting/nausea - Your incision begins to separate - Your incision shows signs of infection such as increased redness, swelling, excessive pain, heat, or drainage (light blood or clear fluid is normal) 7. General instructions: No lifting greater than 5 lbs for 1 week and not more than 20lbs the next 3?weeks. No driving until seen at the office in 5-7 days after surgery. If you do not move your bowels in the next 2 days, please tell?Dr. Jeter. Please walk around your home every hour or two to prevent blood clots from forming in your legs. You do not need to wake from sleeping to walk. Please sleep in a bed or couch to prevent kinking at the hips and knees. Please take your incentive spirometer (your lung molecular biology professor) home with you and use it for the next few days to prevent pneumonia. You may shower, no hot tubs, baths or swimming pools.?Please follow the post op diet instructions you are?given by Dr Jeter? and text me daily at 5-6pm for an update.?If you have any issues or concerns or questions please communicate this to him via text.? The Celebrate shakes have all of the bariatric vitamins you need if you consume these shakes. If you are drinking other protein shakes, you will need to purchase the Celebrate multivitamins and calcium that are available in the hospital gift shop on the first floor of the [facility].??Do not take anything without first discussing with Dr Jeter. Please make sure you are consuming at least 40 ounces of fluids per day starting the?day AFTER your discharge from the hospital. Always drink 1-2 ml per minute using the 5ml?syringe. If you drink faster you may experience?bloating,?gas pain, burping, nausea or heartburn. In that case please slow down your pace and use the syringe to?understand better the?proper?pace and volume of drinking. Do not hesitate to contact the office with any questions at . The patient's medical history has been reviewed and they are considered low risk for post op DVT and therefore DVT prophylaxis is not considered necessary. Travel after surgery was reviewed. The patient has not disclosed any travel plans during the first 30 days after surgery and they have been advised that within the first 30 days after surgery any bus, plane, train or car travel over 2 hours in duration is contraindicated due to the possibility of developing blood clots from immobility. Any travel, needs to include periods of ambulation of 10 minutes in duration every 2 hours.? The patient was instructed to discuss any plans for travel during this period with their bariatric surgeon. Assessment: stable s/p laparoscopic sleeve gastrectomy
[2024-11-20 10:17] LABS: Hematocrit 44.7 % (42.0-52.0); Hemoglobin 15.8 g/dl (14.0-18.0)
[2024-11-20] MEDS: Haloperidol Lactate 5 MG/ML VIAL 1 MG IVPUSH (10:17)
[2024-11-20] MEDS: HYDROmorphone HCl 0.5 MG/0.5 ML SYRINGE 0.25 MG IVPUSH ×3 (10:18→18:11)
[2024-11-20 10:28] LABS: Anion Gap 14 (12-20); Blood Urea Nitrogen 15 mg/dL (9-16); Carbon Dioxide 23 mmol/L (22-29); Chloride 107 mmol/L (96-108); Creatinine Clr Calc Pharmacy 158.4; Estimated Glomerular Filt Rate > 60; Glucose Random 131 mg/dL (60-115); Potassium 4.3 mmol/L (3.3-5.1); Sodium 140 mmol/L (135-145)
[2024-11-20] MEDS: Lactated Ringers 1,000 ML 100 ML IVCONT ×2 (12:12→20:55)
--- NOTE | 2024-11-20 13:23 | PHA.MEDREC ---
Addendum entered by Jai More RPh 11/20/24 14:11: Reviewed by [facility] Original Note: Pharmacy Consult ? Medication Reconciliation Pharmacy reviewed med rec done by nursing. Pt confirmed med rec done by nursing sounds correct when we went through it. Pt confirmed he takes a Guanfacine 4mg tab 1 QD; I added that to the med rec. Pt confirmed Ondansetron and Sucralfate are going to be started when he gets home from surgery. Pt states he stopped taking Farxiga about 2 weeks ago due to the surgery per his
[2024-11-20] MEDS: Acetaminophen 1,000 MG/100 ML PIGGYBACK 16.7 MG IV ×2 (15:19→20:56)
[2024-11-20] MEDS: Escitalopram Oxalate 10 MG TABLET 30 MG PO (20:54)
[2024-11-21] VITALS: BP 148/71; PULSE 90; RESP 20; TEMP 36.7; O2SAT 93
[2024-11-21] MEDS: Acetaminophen 1,000 MG/100 ML PIGGYBACK 16.7 MG IV (02:54)
[2024-11-21 03:34] VITALS: BP 154/80; PULSE 84; RESP 20; TEMP 37.2; O2SAT 95
[2024-11-21] MEDS: Pantoprazole Sodium 40 MG/10 ML VIAL IVPUSH (05:34)
[2024-11-21] MEDS: Lactated Ringers 1,000 ML 100 ML IVCONT (06:14)
[2024-11-21 06:42] LABS: MANUAL DIFF FLAG NO
[2024-11-21 07:01] LABS: Anion Gap 16 (12-20); Blood Urea Nitrogen 11 mg/dL (9-16); Calcium 9.5 mg/dL (8.4-10.2); Carbon Dioxide 21 mmol/L (22-29); Chloride 106 mmol/L (96-108); Creatinine Clr Calc Pharmacy 212.4; Estimated Glomerular Filt Rate > 60; Glucose Random 111 mg/dL (60-115); Potassium 4.2 mmol/L (3.3-5.1); Sodium 139 mmol/L (135-145)
[2024-11-21 07:04] VITALS: BP 140/80; PULSE 64; RESP 14; TEMP 36.6; O2SAT 97
[2024-11-21 07:12] LABS: Basophils Percent Auto 0.1 % (0-2); Hematocrit 42.8 % (42.0-52.0); Hemoglobin 15.3 g/dl (14.0-18.0); Imm Gran Abs Auto 0.05 X10*3/uL (0.00-0.03); Imm Gran Pct Auto 0.4 % (0.0-0.4); Lymphocytes Percent Auto 8.3 % (20-40); Mean Corpuscular HGB Conc 35.7 g/dl (31.0-36.0); Mean Corpuscular Hemoglobin 30.3 pg (27.0-33.0); Mean Corpuscular Volume 84.8 fL (80.0-98.0); Monocytes Absolute Auto 0.6 X10*3/uL (0.1-1.2); Monocytes Percent Auto 5.1 % (2-11); Neutrophils Absolute Auto 9.9 x10*3/uL (2.0-8.3); Neutrophils Percent Auto 86.1 % (45-73); Platelet Count 207 X10*3/uL (160-400); Red Blood Count 5.05 X10*6/uL (4.60-5.80); Red Cell Distribution Width 12.4 % (11.0-16.0); White Blood Count 11.5 X10*3/uL (4.8-10.8)
[2024-11-21] MEDS: lisinopriL 40 MG TABLET PO (07:36)
[2024-11-21] MEDS: Dextroamphetamine/Amphetamine XR 5 MG CAP.ER.24H PO (07:36)
[2024-11-21] MEDS: 0.9 % Sodium Chloride Flush 3 ML SYRINGE IVFLUSH (07:37)
[2024-11-21] MEDS: amLODIPine Besylate 10 MG TABLET PO (07:37)
--- NOTE | 2024-11-21 09:32 | MHC.CM.PN ---
Patient dc'd home self care via private transport prior to CM assessment
--- NOTE | 2024-11-21 10:13 | HO.POSTANES ---
Post Anesthesia Evaluation Post Anesthesia Evaluation Date of Service: 11/21/24 Vital Signs: Vital Signs Temp Pulse Resp BP Pulse Ox O2 Del Method 11/21/24 07:04 97.8 F 64 14 140/80 H 97 Room Air 11/21/24 03:34 99.0 F 84 20 154/80 H 95 Room Air 11/21/24 00:00 98.1 F 90 20 148/71 H 93 Room Air Anesthesia: General Endotracheal-GETA Mental Status: Awake Pain Control: Satisfactory Nausea/Vomiting: None Hydration: Adequate Anesthesia-Related Issues: No Anes. Related Issues
== END 2024-11-21 09:27 | disposition home or self-care (01) | DRG 403 ==
LOC: HO.SSSA 09:58 → HO.S3 11:01
PROVIDERS: Physician Assistant Surgical; Admitting Provider Surgery; PCP Internal Medicine; Visit Provider Surgery
PROC: 0DB64Z3 Excision of Stomach, Percutaneous Endoscopic Approach, Vertical (ICD-10-PCS; CPT 43845; principal; 2024-11-20 07:30)
DX: E66.01 Morbid (severe) obesity due to excess calories (principal); M31.0 Hypersensitivity angiitis; K74.00 Hepatic fibrosis, unspecified; E78.5 Hyperlipidemia, unspecified; K76.0 Fatty (change of) liver, not elsewhere classified; F90.9 Attention-deficit hyperactivity disorder, unspecified type; F32.A Depression, unspecified; F41.9 Anxiety disorder, unspecified; Z68.42 Body mass index [BMI] 45.0-49.9, adult; M19.90 Unspecified osteoarthritis, unspecified site; Q43.3 Congenital malformations of intestinal fixation; Z79.899 Other long term (current) drug therapy
CPT/HCPCS: 36415; 80048; 80053; 80061; 83036; 83525; 84443; 85014; 85018; 85025; 85610; 85730; 86140; 86850; 86900; 86901; 88304; 88305; 88307; 88342; A4649; C9145; J0131; J1100; J1171; J1630; J1956; J2003; J2250; J2405; J2470; J2704; J2795; J3010; J7120

== ENCOUNTER → 2024-11-20 06:13 | Outpatient (BNV) | payer BC, SELFPAY | PROVIDERS: Admitting Provider Surgery; PCP Internal Medicine; Visit Provider Surgery | DX: E66.01 Morbid (severe) obesity due to excess calories (principal); Z68.42 Body mass index [BMI] 45.0-49.9, adult; Z98.84 Bariatric surgery status | CPT/HCPCS: 99499 ==

== ENCOUNTER 2024-11-28 12:51 | Outpatient (AMB) | payer BC, SELFPAY ==
--- NOTE | 2024-11-28 13:13 | MHC.NURWM ---
Intake VS Expanded 11/28/24 13:24 BP 127/66 Blood Pressure Location Rt brachial Blood Pressure Position Sitting Pulse 90 Pulse Source Pulse Oximeter Temp 97.3 F Temperature Source Temporal Artery Scan Pulse Oximetry 98 Oxygen Delivery Method Room Air Height 6 ft Weight 341 lb BMI 46.2 Body Fat % 41.9 Body Fat Mass 142.8 Fat Free Mass 198.0 Visceral Fat Rating 26.0 Body Water % 40.9 Body Water Mass 139.4 Muscle Mass/Score 188.2 Basal Metabolic Rate/Score 2,848 Intake Visit Reasons: (OV) PO LSG 11/20/24 Allergies azithromycin Allergy (Mild, Verified 11/14/24 07:33) ? rash-childhood allergy Penicillins Allergy (Mild, Verified 11/14/24 07:33) ? rash-childhood allergy Sulfa (Sulfonamide Antibiotics) Allergy (Mild, Verified 11/14/24 07:33) ? rash-childhood allergy Coding
[2024-11-28 13:24] VITALS: BP 127/66; PULSE 90; TEMP 36.3; O2SAT 98; BMI 46.2
[2024-11-28 13:40] VITALS: BMI 46.2
--- NOTE | 2024-11-28 13:40 | A.OFFVIS_ITS ---
VS Expanded 11/28/24 13:24 11/28/24 13:40 BP 127/66 Blood Pressure Location Rt brachial Blood Pressure Position Sitting Pulse 90 Pulse Source Pulse Oximeter Temp 97.3 F Temperature Source Temporal Artery Scan Pulse Oximetry 98 Oxygen Delivery Method Room Air Height 6 ft Weight 341 lb BMI 46.2 46.2 Body Fat % 41.9 Body Fat Mass 142.8 Fat Free Mass 198.0 Visceral Fat Rating 26.0 Body Water % 40.9 Body Water Mass 139.4 Muscle Mass/Score 188.2 Basal Metabolic Rate/Score 2,848 Intake Visit Reasons: (OV) PO LSG 11/20/24 Allergies azithromycin Allergy (Mild, Verified 11/14/24 07:33) ? rash-childhood allergy Penicillins Allergy (Mild, Verified 11/14/24 07:33) ? rash-childhood allergy Sulfa (Sulfonamide Antibiotics) Allergy (Mild, Verified 11/14/24 07:33) ? rash-childhood allergy Medication List - Last Reconciled 11/28/24 by AUSTYN Pizano amlodipine-benazepril 10-40 mg 1 cap PO BEDTIME cholecalciferol (vitamin D3) 125 mcg PO BEDTIME dapagliflozin propanediol 5 mg PO BEDTIME Held on 11/21/24. Instructions: until discussed with Dr Jeter dextroamphetamine-amphetamine 5 mg ER 1 cap PO BID escitalopram oxalate (Lexapro) 30 mg PO BEDTIME pantoprazole 40 mg PO BEDTIME rosuvastatin 10 mg PO BEDTIME spironolactone 25 mg PO BEDTIME HPI Comments Details: This?is a?34?yo M who is s/p LSG 11/20/2024. Pain controlled. No nausea. Tolerating 3 Premier premade shakes per day. Hydration is adequate- 50oz per day. Monitoring BP at home, not taking spironolactone but will take amlodipine- benazepril according to parameters. Not taking dapaglifozin (reports he was on this for kidney protection rather than diabetes though). [facility] Medical History Pre-diabetes Cardiomyopathy, unspecified Anxiety and depression Anti-glomerular basement membrane antibody disease ADHD DJD (degenerative joint disease) Hyperlipidemia Hypertension Morbid obesity Fatty liver Surgical History History of esophagogastroduodenoscopy (EGD) History of biopsy of kidney History of video-assisted thoracoscopic surgery (VATS) Family History Father Heart attack Social History Household Members: Family Household Members Other:: Dad Housing: House Housing Other:: lives in an in-law apt @ parent's home Are you a primary hospice care transitions coordinator to a significant other at home: No Do you presently have visiting nurse or other home services: No Patient Tobacco Use Status: Never used Tobacco Second Hand Smoke Exposure: No Physical Exam Vital Signs: Last Vital Signs Temp 97.3 F 11/28/24 13:24 Pulse 90 11/28/24 13:24 BP 127/66 11/28/24 13:24 Pulse Ox 98 11/28/24 13:24 Oxygen Delivery Method Room Air 11/28/24 13:24 BMI result Body Mass Index 46.2 Const General: cooperative, comfortable and no acute distress Orientation/consciousness: patient oriented x3 GI Other: soft, nontender, nondistended, steri-strips c/d/i Neuro General: patient oriented x3 Quality Reporting (2019) Adult ([facility] 138/08/04/68) Body Mass Index: 46.2 Assessment & Plan Assessment & Plan (1) Morbid obesity: Code(s): E66.01 - Morbid (severe) obesity due to excess calories Category: Medical (2) S/P laparoscopic sleeve gastrectomy: Code(s): Z98.84 - Bariatric surgery status Category: Surgical Plan May shower tomorrow but no bath or submersion of abdomen in water. May start exercise.? No abdominal exercises x 6 weeks. Abdominal binder for the next 2 weeks with activity or exercise. Continue meal plan per Dr Montgomery Reviewed pantoprazole and carafate dosing. Reminded of the pace of drinking 2 mL/min or 1oz per 15 min. Will be emailed link for post op video for review.
--- NOTE | 2024-11-28 13:40 | A.OFFVIS_ITS ---
VS Expanded 11/28/24 13:24 11/28/24 13:40 BP 127/66 Blood Pressure Location Rt brachial Blood Pressure Position Sitting Pulse 90 Pulse Source Pulse Oximeter Temp 97.3 F Temperature Source Temporal Artery Scan Pulse Oximetry 98 Oxygen Delivery Method Room Air Height 6 ft Weight 341 lb BMI 46.2 46.2 Body Fat % 41.9 Body Fat Mass 142.8 Fat Free Mass 198.0 Visceral Fat Rating 26.0 Body Water % 40.9 Body Water Mass 139.4 Muscle Mass/Score 188.2 Basal Metabolic Rate/Score 2,848 Intake Visit Reasons: (OV) PO LSG 11/20/24 Allergies azithromycin Allergy (Mild, Verified 11/14/24 07:33) ? rash-childhood allergy Penicillins Allergy (Mild, Verified 11/14/24 07:33) ? rash-childhood allergy Sulfa (Sulfonamide Antibiotics) Allergy (Mild, Verified 11/14/24 07:33) ? rash-childhood allergy Medication List - Last Reconciled 11/28/24 by AUSTYN Pizano amlodipine-benazepril 10-40 mg 1 cap PO BEDTIME cholecalciferol (vitamin D3) 125 mcg PO BEDTIME dapagliflozin propanediol 5 mg PO BEDTIME Held on 11/21/24. Instructions: until discussed with Dr Jeter dextroamphetamine-amphetamine 5 mg ER 1 cap PO BID escitalopram oxalate (Lexapro) 30 mg PO BEDTIME pantoprazole 40 mg PO BEDTIME rosuvastatin 10 mg PO BEDTIME spironolactone 25 mg PO BEDTIME [facility] Medical History Pre-diabetes Cardiomyopathy, unspecified Anxiety and depression Anti-glomerular basement membrane antibody disease ADHD DJD (degenerative joint disease) Hyperlipidemia Hypertension Morbid obesity Fatty liver Surgical History History of esophagogastroduodenoscopy (EGD) History of biopsy of kidney History of video-assisted thoracoscopic surgery (VATS) Family History Father Heart attack Social History Household Members: Family Household Members Other:: Dad Housing: House Housing Other:: lives in an in-law apt @ parent's home Are you a primary career and technology education teacher to a significant other at home: No Do you presently have visiting nurse or other home services: No Patient Tobacco Use Status: Never used Tobacco Second Hand Smoke Exposure: No Physical Exam Vital Signs: Last Vital Signs Temp 97.3 F 11/28/24 13:24 Pulse 90 11/28/24 13:24 BP 127/66 11/28/24 13:24 Pulse Ox 98 11/28/24 13:24 Oxygen Delivery Method Room Air 11/28/24 13:24 BMI result Body Mass Index 46.2 Quality Reporting (2020) Adult ([facility] 138/08/04/68) Body Mass Index: 46.2
[2024-11-28 14:23] VITALS: BMI 46.2
--- OUTSIDE RECORDS SUMMARY | 2024-11-28 14:42 | XMS_ITS | Clinical Summary ---
Author Organization [facility].. Address [address] [phone] Phone Care Team Providers Care Cardiopulmonary Technologist Chief Name Role Phone Alma Chavarria MD Primary Care Provider + [phone] Allergies Active Allergy Reactions Criticality Noted Date [...] Office Visit [facility] [address] [phone] Tano Grande MD Anti-glomerular basement membrane disease (Primary Dx); Hypertension; Isolated proteinuria; Increased body mass index <Overweight> 08/28/2024 Orders Only [facility] [address] [phone] Tano Grande MD from Last 3 Months Family History Medical [...] Office Visit [facility] [address] [id number] Tano Grande MD [address] [phone] Health Maintenance Due Date Last Done Comments [...] NOT USE Routine 08/28/2024 7:34 AM EDT from Last 3 Months Results * Microscopic Examination (08/28/2024 7:34 AM EDT) WBC, Urine None seen 0 - 5 /hpf [facility] RBC, Urine None seen 0 - 2 /hpf [facility] Squamous Epithelial, Urine None seen 0 - 10 /hpf [facility] Casts None seen None seen /lpf [facility] Bacteria, Urine None seen None seen/Few [facility] 08/28/2024 7:34 AM EDT 08/28/2024 us Tano Grande MD LAB MICROBIOLOGY - GENERAL ORDER SHENG Final Result [facility] [address] [place] [address] * (ABNORMAL) Urine Albumin / Creatinine Ratio (08/28/2024 7:34 AM EDT) Creatinine, Ur 195.9 Not Estab. mg/dL [facility] Albumin, Urine 601.3 Not Estab. ug/mL [facility] Comment: Results confirmed on dilution. Albumin/Creatin ine Ratio 307(H) 0 - 29 mg/g creat [facility] Comment: Normal: 0 - 29 Moderately increased: 30 - 300 Severely increased: >300 08/28/2024 7:34 AM EDT 08/28/2024 us Tano Grande MD LAB URINE ORDERABLES Final Resul t [facility] [address] [place] [address] * (ABNORMAL) Urinalysis with microscopic (08/28/2024 7:34 AM EDT) Specific [place], Urine 1.025 1.005 - 1.030 [facility] pH Urine 6.0 5.0 - 7.5 [facility] Color, Urine Yellow Yellow [facility] [phone] Appearance Urine Clear Clear [facility] WBC Esterase Urine Negative Negative [facility] Protein, Ur 2+(A) Negative/Tra ce [facility] [phone] Glucose, Ur 1+(A) Negative [facility] Ketones, Urine Negative Negative [facility] Blood Urine Negative Negative [facility] Bilirubin Urine Negative Negative [facility] Urobilinogen Urine 0.2 0.2 - 1.0 mg/dL [facility] Nitrite, Urine Negative Negative [facility] Microscopic Examination See below: [facility] [phone] Comment:Microscopic was arielle cated and was performed. 08/28/2024 7:34 AM EDT 08/28/2024 us Tano Grande MD LAB URINE ORDERABLES Final Resul t [facility] [address] [place] [address] from Last 3 Months Insurance [facility] Care Teams Cardiopulmonary Technologist Chief Relationship Specialty Start Date End Date Alma Chavarria MD [address] [place] [address] PCP - General Internal Medicine 12/09/22
== END 2024-11-28 14:13 | disposition home or self-care (01) ==
LOC: HO.HBS 12:51
PROVIDERS: PCP Internal Medicine; Visit Provider Physician Assistant Surgical
DX: E66.01 Morbid (severe) obesity due to excess calories (principal); Z68.42 Body mass index [BMI] 45.0-49.9, adult; Z90.3 Acquired absence of stomach [part of]; Z98.84 Bariatric surgery status
CPT/HCPCS: 99024

== ENCOUNTER → 2024-11-28 12:51 | Outpatient (BNVA) | payer BC, SELFPAY | PROVIDERS: PCP Internal Medicine; Visit Provider Physician Assistant Surgical ==

== ENCOUNTER 2024-11-29 08:00 | Outpatient (AMB) | payer BC, SELFPAY ==
--- NOTE | 2024-11-29 08:00 | MHC.WMTHER ---
Intake Intake Visit Reasons: TV PO LSG 11/20/24 Allergies azithromycin Allergy (Mild, Verified 11/14/24 07:33) ? rash-childhood allergy Penicillins Allergy (Mild, Verified 11/14/24 07:33) ? rash-childhood allergy Sulfa (Sulfonamide Antibiotics) Allergy (Mild, Verified 11/14/24 07:33) ? rash-childhood allergy PFSH Medical History Pre-diabetes Cardiomyopathy, unspecified Anxiety and depression Anti-glomerular basement membrane antibody disease ADHD DJD (degenerative joint disease) Hyperlipidemia Hypertension Morbid obesity Fatty liver Surgical History History of esophagogastroduodenoscopy (EGD) History of biopsy of kidney History of video-assisted thoracoscopic surgery (VATS) Family History Father Heart attack Social History Household Members: Family Household Members Other:: Dad Housing: House Housing Other:: lives in an in-law apt @ parent's home Are you a primary career services coordinator to a significant other at home: No Do you presently have visiting nurse or other home services: No Patient Tobacco Use Status: Never used Tobacco Second Hand Smoke Exposure: No Behavioral Health Assessment Weight Management Therapy Therapy Notes Details Subjective: The patient underwent bariatric (weight loss) surgery on 11/20/2024 and reports a smooth recovery. He denies experiencing any pain and describes his mood as generally positive. He is scheduled to return to work tomorrow. He identifies his girlfriend, father, and stepmother as primary sources of support. He denies experiencing hunger and reports adherence to all postoperative instructions. Objective: Patient presented for a postoperative behavioral health appointment via telehealth. Discussed current functioning and recovery status. Provided psychoeducation on the emotional and psychological adjustments commonly experienced following bariatric surgery. Explored progress, goals, and support systems. Emphasized strategies for long-term success, including the importance of ongoing communication with healthcare providers. The PHQ-9 was administered to screen for depressive symptoms. Assessment/Response: Mental Status: Within Normal Limits (WNL) Risk Identified/Reported: None The patient was engaged throughout the session and demonstrated insight and motivation. Mental status exam was unremarkable. PHQ-9 results indicated no current concerns. Food/Weight/Diet Expectations of change The initial goal to lose 10% of her weight before surgery, which is about 30 lbs. Ultimate weight goal: 367lbs before surgery. PT started the program at 397Lbs and recent Weight as of 08/30/24 388Lbs. Recent weight as of today 10/02/2021: 375Lbs. Pre-op weight 11/16/2024: 351 Weight on day on surgery: 355 PO weight 11/29/24: 339Lbs PT is implementing the following: Current meal plan: 3 shakes and liquids. Goal is 40-602oz, he has been able to do 55oz at day Exercise plan: walks. Cleared to go back - Goal is to burn 2000 bailey at week. Scale: Yes Communication w/ provider: starting weekly on Tuesdays again. Was daily since surgery. Questionnaires PHQ-9 Over the last 2 weeks, how often have you been bothered by any of the following problems? 1. Little interest or pleasure in doing things: several days 2. Feeling down, depressed, or hopeless: not at all 3. Trouble falling or staying asleep, or sleeping too much: not at all 4. Feeling tired or having little energy: not at all 5. Poor appetite or overeating: not at all 6. Feeling bad about yourself - or that you are a failure or have let yourself or your family down: not at all 7. Trouble concentrating on things, such as reading the newspaper or watching television: not at all 8. Moving or speaking so slowly that other people could have noticed. Or the opposite - being so fidgety or restless that you have been moving around a lot more than usual: not at all 9. Thoughts that you would be better off or of hurting yourself in some way: not at all Total score: 1 Depression Screening Interpretation: Negative Depression Screening Done: Yes 96088 - PHQ-9 Billing: Yes Source: Developed by Drs. Danial Martin, Fe White, Avery Ramos and colleagues, with an educational adryan from [employer]. Assessment & Plan Assessment & Plan (1) ADD (attention deficit disorder): Code(s): F98.8 - Other specified behavioral and emotional disorders with onset usually occurring in childhood and adolescence (2) Trauma and stressor-related disorder: Code(s): F43.9 - Reaction to severe stress, unspecified (3) S/P laparoscopic sleeve gastrectomy: Code(s): Z98.84 - Bariatric surgery status Plan The patient is aware of available support resources, including an active Facebook support group and access to behavioral health services as needed. No follow-up visits are necessary at this time. Telehealth Telehealth Telehealth Platform: [facility] Location of provider rendering services: other Location of patient: address on file Patient Identification confirmed using: Name, : Yes Telehealth method: voice only Patient verbally consented to treatment: Yes Patient verbally consented to billing insurance company: Yes Patient informed of any privacy concerns related to visit: Yes Minutes spent on Phone/Video with Pt.: 30 Coding Level of Care Code Established Pt Tele Psytx 30 mins (32075) Patient Type Established Diagnoses ADD (attention deficit disorder) F98.8 Trauma and stressor-related disorder F43.9 S/P laparoscopic sleeve gastrectomy Z98.84 Additional Codes PHQ-9 - 52208 - PHQ-9 Billing: Yes ([id number]) Time Spent (min) 30
--- OUTSIDE RECORDS SUMMARY | 2024-11-29 08:16 | XMS_ITS | Clinical Summary ---
Author Organization [facility].. Address [address] [address] Phone Care Team Providers Care Gis Engineer Name Role Phone Alma Chavarria MD Primary Care Provider + [phone] Allergies Active Allergy Reactions Criticality Noted Date [...] Office Visit [facility] [address] [place] [phone] Tano Grande MD Anti-glomerular basement membrane disease [...] [facility] P.. [address] [phone] Tano Grande MD [address] [phone] Health Maintenance Due Date Last Done Comments Hepatitis B Vaccine (1 of 3 - 19+ 3-dose series) 02/09 Pneumococcal Vaccine: Peds ( 0 to 5 Years) and At-Risk Patients (6 to 49 Years) (1 of 2 - PCV) 02/09/2007 Influenza Vaccine (Season Ended) 2025 Insurance [facility] Care Teams Gis Engineer Relationship Specialty Start Date End Date Alma Chavarria MD [address] [place] [address] PCP - General Internal Medicine 12/09/22
== END 2024-11-29 08:32 | disposition home or self-care (01) ==
LOC: HO.HBST 08:10
PROVIDERS: PCP Internal Medicine; Visit Provider Counselor Mental Health
DX: F43.9 Reaction to severe stress, unspecified (principal); F98.8 Other specified behavioral and emotional disorders with onset usually occurring in childhood and adolescence; Z98.84 Bariatric surgery status
CPT/HCPCS: 90832

== ENCOUNTER 2024-12-26 13:45 | Outpatient (AMB) | payer BC, SELFPAY ==
--- NOTE | 2024-12-26 13:54 | A.OFFVIS_ITS ---
VS Expanded 12/26/24 14:07 BP 134/65 Blood Pressure Location Rt brachial Blood Pressure Position Sitting Pulse 94 Pulse Source Pulse Oximeter Temp 97.8 F Temperature Source Temporal Artery Scan Pulse Oximetry 96 Oxygen Delivery Method Room Air Height 6 ft Weight 317 lb 6.4 oz BMI 43.0 Body Fat % 39.3 Body Fat Mass 124.8 Fat Free Mass 192.4 Visceral Fat Rating 22.0 Body Water % 43.3 Body Water Mass 137.4 Muscle Mass/Score 183.0 Basal Metabolic Rate/Score 2,735 Intake Visit Reasons: (OV) PO LSG 11/20/24 Auto Tire Recapper Required: No Allergies azithromycin Allergy (Mild, Verified 12/26/24 14:00) ? rash-childhood allergy Penicillins Allergy (Mild, Verified 12/26/24 14:00) ? rash-childhood allergy Sulfa (Sulfonamide Antibiotics) Allergy (Mild, Verified 12/26/24 14:00) ? rash-childhood allergy Medication List - Last Reconciled 12/26/24 by AUSTYN Kemp amlodipine-benazepril 10-40 mg 1 cap PO BEDTIME cholecalciferol (vitamin D3) 125 mcg PO BEDTIME dapagliflozin propanediol 5 mg PO BEDTIME Held on 11/21/24. Instructions: until discussed with Dr Jeter dextroamphetamine-amphetamine 5 mg ER 1 cap PO BID docusate sodium (Colace) 100 mg PO DAILY escitalopram oxalate (Lexapro) 30 mg PO BEDTIME pantoprazole 40 mg PO BEDTIME rosuvastatin 10 mg PO BEDTIME spironolactone 25 mg PO BEDTIME HPI Comments Details: This?a?34?yo male who is s/p LSG without hiatal hernia repair on?11/20/2024. Presents for 1 month post op visit. Weight today is 317.4 pounds, with a BMI of 43.1. There has been a 80.2 pound weight loss,(initial weight 397.6 pounds) since starting the program on 08/08/2024 reflecting a 20.1 % total body weight loss and a weight loss of 38.4 pounds since surgery (operative weight 355.8 pounds) reflecting a 10.7 % TBWL since surgery. No complaints of nausea, emesis, abdominal pain or reflux. Reports infrequent but normal bowel movements every 2-3 days and uses stool softeners regularly. Taking celebrate mvi No significant complaints at today's visit. Present meal plan includes: Alpha Lion protein powder (25 gm per scoop) 1 scoop in 8 oz almond milk at 8-10, 11-1, 2-4 Fit Crunch protein bar 5-7 Drinking 60 oz fluids ? Exercise routine includes: Elliptical at work 6 days per week, 300 bailey PFSH Medical History Abnormal EKG Pre-diabetes Cardiomyopathy, unspecified Anxiety and depression Anti-glomerular basement membrane antibody disease ADHD DJD (degenerative joint disease) Hyperlipidemia Hypertension Morbid obesity Fatty liver Surgical History History of esophagogastroduodenoscopy (EGD) History of biopsy of kidney History of video-assisted thoracoscopic surgery (VATS) Family History Father Heart attack Social History Household Members: Family Household Members Other:: Dad Housing: House Housing Other:: lives in an in-law apt @ parent's home Are you a primary child care centre director to a significant other at home: No Do you presently have visiting nurse or other home services: No Patient Tobacco Use Status: Never used Tobacco Second Hand Smoke Exposure: No Physical Exam Const General: healthy appearing and no acute distress Resp Effort & Inspection: normal respiratory effort Auscultation: clear to auscultation bilaterally Cardio Rate: regular rate Rhythm: regular rhythm GI Auscultation: normal bowel sounds Extrem General: Yes normal to inspection Assessment & Plan Assessment & Plan (1) S/P laparoscopic sleeve gastrectomy: Code(s): Z98.84 - Bariatric surgery status Category: Surgical Plan: Patient is doing very well. Following the meal plan. He is exercising almost daily. Encouraged to increase his exercise to hit 350 calories per day. Additionally, continue to text with Dr. Jeter as he has been doing. He has no complaints and we will see him back in approximately 1 month
[2024-12-26 14:07] VITALS: BP 134/65; PULSE 94; TEMP 36.6; O2SAT 96; BMI 43.0
--- OUTSIDE RECORDS SUMMARY | 2024-12-26 14:38 | XMS_ITS | Clinical Summary ---
Author Organization [facility].. Address [address] [address] Phone Care Team Providers Care Well Treatment Offsider Name Role Phone Alma Chavarria MD Primary Care Provider + [phone] Allergies Active Allergy Reactions Criticality Noted Date [...] Visit [facility] P.. [address] [phone] Tano Grande MD [address] [phone] Health Maintenance Due Date Last Done Comments Hepatitis B Vaccine (1 of 3 - 19+ 3-dose series) 02/09 Pneumococcal Vaccine: Peds ( 0 to 5 Years) and At-Risk Patients (6 to 49 Years) (1 of 2 - PCV) 02/09/2007 Influenza Vaccine (#1) [address] [facility] [place] [address] Care Teams Well Treatment Offsider Relationship Specialty Start Date End Date Alma Chavarria MD [address] [place] [address] PCP - General Internal Medicine 12/09/22
--- OUTSIDE RECORDS SUMMARY | 2024-12-26 14:38 | XMS_ITS | Continuity of Care Document ---
Author Organization [facility] Address [address] [place], [place] [id number] Problems Condition ICD9 code ICD10 code SNOMED code Start Date End Date S tatus Encounter for screening for other metabolic disorders Z13.228 Results No Results Allergies, adverse reactions, alerts No known allergies and adverse reactions Medications No administered medications reported Vital Signs No vital signs reported Social History No smoking Hx information available
== END 2024-12-26 14:22 | disposition home or self-care (01) ==
LOC: HO.HBS 13:46
PROVIDERS: PCP Internal Medicine; Visit Provider Physician Assistant Surgical
DX: Z98.84 Bariatric surgery status (principal)
CPT/HCPCS: 99024

== ENCOUNTER 2025-01-31 10:23 | Outpatient (AMB) | payer BC, SELFPAY ==
--- NOTE | 2025-01-31 10:12 | MHC.OFFVISWM ---
VS Expanded 01/31/25 10:13 Height 6 ft Weight 296 lb 2 oz BMI 40.2 Body Fat % 42 Body Fat Mass 124.4 Fat Free Mass 171.8 Visceral Fat Rating 22 Body Water % 41.9 Body Water Mass 124.2 Muscle Mass/Score 163.2 Basal Metabolic Rate/Score 2,053 Intake Visit Reasons: (TV) PO LSG 11/20/24 Offal Roller Required: No Allergies azithromycin Allergy (Mild, Verified 12/26/24 14:00) ? rash-childhood allergy Penicillins Allergy (Mild, Verified 12/26/24 14:00) ? rash-childhood allergy Sulfa (Sulfonamide Antibiotics) Allergy (Mild, Verified 12/26/24 14:00) ? rash-childhood allergy Medication List - Last Reconciled 01/31/25 by AUSTYN Kemp amlodipine-benazepril 10-40 mg 1 cap PO BEDTIME cholecalciferol (vitamin D3) 125 mcg PO BEDTIME dapagliflozin propanediol 5 mg PO BEDTIME Held on 11/21/24. Instructions: until discussed with Dr Jeter dextroamphetamine-amphetamine 5 mg ER 1 cap PO BID docusate sodium (Colace) 100 mg PO DAILY escitalopram oxalate (Lexapro) 30 mg PO BEDTIME pantoprazole 40 mg PO BEDTIME rosuvastatin 10 mg PO BEDTIME spironolactone 25 mg PO BEDTIME HPI Comments Details: This?a?34?yo male who is s/p LSG without hiatal hernia repair on?11/20/2024. Presents for 2 month post op visit. Weight today is 296.2 pounds, with a BMI of 42. There has been a 101.4 pound weight loss,(initial weight 397.6 pounds) since starting the program on 08/08/2024 reflecting a 25.5 % total body weight loss and a weight loss of 59.6 pounds since surgery (operative weight 355.8 pounds) reflecting a 16.7 % TBWL since surgery. No complaints of nausea, emesis, abdominal pain or reflux. Reports infrequent but normal bowel movements every 2-3 days and uses stool softeners regularly. Taking celebrate mvi No significant complaints at today's visit. Present meal plan includes: ryse protein powder (25 gm per scoop) 1 scoop in 8 oz almond milk at 8-10, 2-4 fit crunch bar 11-1, meal 6-8, 3 forks protein and 3 forks veg Drinking 70 oz fluids ? Exercise routine includes: Elliptical at work 6 days per week, 400-500 bailey yoga at home [facility] Medical History Abnormal EKG Pre-diabetes Cardiomyopathy, unspecified Anxiety and depression Anti-glomerular basement membrane antibody disease ADHD DJD (degenerative joint disease) Hyperlipidemia Hypertension Morbid obesity Fatty liver Surgical History History of esophagogastroduodenoscopy (EGD) History of biopsy of kidney History of video-assisted thoracoscopic surgery (VATS) Family History Father Heart attack Social History Household Members: Family Household Members Other:: Dad Housing: House Housing Other:: lives in an in-law apt @ parent's home Are you a primary child care team lead to a significant other at home: No Do you presently have visiting nurse or other home services: No Patient Tobacco Use Status: Never used Tobacco Second Hand Smoke Exposure: No Telehealth Telehealth Telehealth Platform: Telephone Location of provider rendering services: practice address Location of patient: address on file Patient Identification confirmed using: Name, : Yes Telehealth method: voice only Patient verbally consented to treatment: Yes Patient verbally consented to billing insurance company: Yes Patient informed of any privacy concerns related to visit: Yes Minutes spent on Phone/Video with Pt.: 15 Assessment & Plan Assessment & Plan (1) S/P laparoscopic sleeve gastrectomy: Code(s): Z98.84 - Bariatric surgery status Category: Surgical Plan: Meal plan changed slightly by Dr. Jeter as listed above. Patient is doing well. Recommend alternating cardiovascular activity to include elliptical, treadmill, stationary bike and rowing machine. He may additionally add weights, weight training 20 minutes prior to cardio although not at the expense of cardio. Continue with 400-500 calories burned per cardio session. We will have him return to the office in 4-6 weeks. Text with any questions or concerns. Overall, he is very satisfied with the direction that he is taking and the outcome of his surgery.
[2025-01-31 10:13] VITALS: BMI 40.2
--- OUTSIDE RECORDS SUMMARY | 2025-01-31 11:53 | XMS_ITS | Clinical Summary ---
Author Organization [facility].. Address [address] [address] Phone Care Team Providers Care Mine Analyst Name Role Phone Alma Chavarria MD Primary Care Provider + [phone] Allergies Active Allergy Reactions Criticality Noted Date [...] Visit [facility] P.. [address] [phone] Tano Grande MD [address] [address] Health Maintenance Due Date Last Done Comments Hepatitis B Vaccine (1 of 3 - 19+ 3-dose series) 02/09 Pneumococcal Vaccine: Peds ( 0 to 5 Years) and At-Risk Patients (6 to 49 Years) (1 of 2 - PCV) 02/09/2007 Influenza Vaccine (#1) 2025 Insurance [facility] [place] [address] Care Teams Mine Analyst Relationship Specialty Start Date End Date Alma Chavarria MD [address] [place] [address] PCP - General Internal Medicine 12/09/22
--- OUTSIDE RECORDS SUMMARY | 2025-01-31 11:53 | XMS_ITS | Clinical Summary ---
Author Organization [facility] Address [address] [place] [id number] Phone Care Team Providers Care Belt Maker Name Role Phone Alma Chavarria MD Primary Care Provide r Allergies Active Allergy Reactions Criticality Noted Date Comments Erythromycin Other (See Comments) 02/03/2021 Mother always told him he was allergic. Does not know reaction. Advised to consult with his pcp to determine if true allergy. Penicillins Other (See Comments) 02/03/2021 Does not know. Told by mother. Will consult pcp to determine if true allergy. Sulfa (Sulfonamide Antibiotics) Other (See Comments) 09/28/2024 Does not know. Told by mother. Will consult w pcp to determine if true allergy Medications amLODIPine-benaz epril (LOTREL) 10-40 mg per capsule Take 1 capsule by mouth every morning. 5 Active chlorhexidine (PERIDEX) 0.12 % solution FILL CAP TO FILL LINE 15 ML) , SWISH IN MOUTH UNDILUTED FOR 30 SECONDS THEN SPIT OUT ; USE AFTER BREAKFAST AND BEFORE BED TIME 5 Active cholecalciferol (VITAMIN D3) 50,000 unit capsule Take 1 capsule by mouth once a week. 5 Active dapagliflozin propanediol (FARXIGA) 5 mg tablet Take 5 mg by mouth every morning. Active dextroamphetamin e-amphetamine (ADDERALL XR) 5 MG 24 hr capsule 3 Active dextroamphetamin e-amphetamine (ADDERALL XR) 15 MG 24 hr capsule Take 1 capsule by mouth. Active spironolactone (ALDACTONE) 25 MG tablet Take 25 mg by mouth. 5 09/15/19 26 Active rosuvastatin (CRESTOR) 10 MG tablet Take 10 mg by mouth nightly at bedtime. Active hydrOXYzine (ATARAX) 25 MG tablet Active LEXAPRO 20 mg tablet 0 Active guanFACINE (INTUNIV) 4 mg Tb24 Take 4 mg by mouth daily. Active ibuprofen (ADVIL,MOTRIN) 800 MG tablet Take 800 mg by mouth every 8 (eight) hours as needed. 5 Active ciprofloxacin HCl (CILOXAN) 0.3 % ophthalmic solution Administer 1 drop, every 2 hours, while awake, for 2 days. Then 1 drop, every 4 hours, while awake, for the next 5 days. right 5 mL 5 Active Additional Information Patient not taking.Reported on 10/28/2024 doxycycline monohydrate (MONODOX) 100 MG capsule Take 1 capsule (100 mg total) by mouth 2 (two) times a day. 14 capsule 5 Active Additional Information Patient not taking.Reported on 10/28/2024 neomycin-polymyx in B-hydrocortisone (CORTOMYCIN) 3.5-10,000-1 mg/mL-unit/mL-% otic suspension 4 drops by Each Ear route 4 (four) times a day. 10 mL 1 5 Active Active Problems Problem Noted Date Diagnosed Date Allergic rhinitis 02/03/2021 Chronic dermatitis 02/03/2021 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 Recurrent depression 02/03/2021 Essential hypertension 08/17/2012 Social History Tobacco Use Types Packs/Day Years Used Date Smoking Tobacco: Never Smokeless Tobacco: Never Education Answer Date Recorded Are you interested in more education? Not on carlos enrique e 09/28/2024 Are you concerned about learning? Not on file 09/28/2024 No 09/28/2024 No 09/28/2024 Digital Access Answer Date Recorded No 09/28/2024 No 09/28/2024 Reliable internet access at home? Not on file 09/28/2024 Device with a working camera? Not on file Sex and Gender Information Value Date Recorded Sex Assigned at Male 09/27/2024 9:16 PM EDT Legal Sex Male 4:36 PM EDT Gender Identity Male 09/27/2024 9:16 PM EDT Sexual Orientation Straight 09/27/2024 9: 16 PM EDT Last Filed Vital Signs Vital Sign Reading Time Taken Comments Blood Pressure 154/102 10/28/2024 11:39 AM EDT Pulse 80 10/28/2024 11:22 AM EDT Temperature 36.8 C (98.3 F) 10/28/2024 11:22 AM EDT Respiratory Rate 18 10/28/2024 11:22 AM EDT Oxygen Saturation 96% 10/28/2024 11:22 AM EDT Inhaled Oxygen Concentration - - Weight - - Height - - Body Mass Index - - Plan of Treatment Health Maintenance Due Date Last Done Comments CREATININE LEVEL 1988 LIPID PANEL 1988 POTASSIUM LEVEL 1988 DEPRESSION SCREENING 2000 HEPATITIS C SCREENING 02/09/2006 HIV ONE-TIME SCREENING (18-6 5 YEARS) 02/09/2006 COVID-19 VACCINE (4 - 2023-2 5 season) 2024 05/07/2022, 10/19/2020, 09/28/2020 BLOOD PRESSURE 04/30/2025 10/28/2024 Adult Td,Tdap Booster 05/21/2032 05/21/2022 PNEUMOCOCCAL VACCINES (0-49 years) Completed 11/19/2022 HEPATITIS A VACCINES Aged Out 03/29/2024 No long er eligible based on patient's age to complete this topic SMOKING STATUS SCREENING (On ce After 26 Yrs) Completed 10/28/2024 HIB VACCINES Aged Out No longer eligi ble based on patient's age to complete this topic MENINGOCOCCAL VACCINES (ACWY) Aged Out No longer eligible based on patient's age to complete this topic MENINGOCOCCAL VACCINES (B) Aged Out N o longer eligible based on patient's age to complete this topic Medical Devices Not on file Insurance [facility] OUT OF STATE PPO BLUE CROSS OUT OF STATE PPO BLUE CROSS OUT OF STATE PPO BLUE CROSS OUT OF STATE PPO BLUE CROSS OUT OF STATE PPO BLUE CROSS OUT OF STATE PPO Care Teams Belt Maker Relationship Specialty Start Date End Date Alma Chavarria MD [address] [place] [id number] PCP - General Internal Medicine 09/28/24 Additional Source Comments The information contained in this document represents components of the legal health record. It is not the complete legal health record.[facility]
== END 2025-01-31 10:27 | disposition home or self-care (01) ==
LOC: HO.HBS 10:23
PROVIDERS: PCP Internal Medicine; Visit Provider Physician Assistant Surgical
DX: Z98.84 Bariatric surgery status (principal)
CPT/HCPCS: 99024

== ENCOUNTER 2025-04-22 09:54 | Outpatient (AMB) | payer BC, SELFPAY ==
--- OUTSIDE RECORDS SUMMARY | 2025-04-17 15:30 | XMS_ITS | Encounter Summary ---
Author Organization [facility] Address [address] [place] [phone] Phone Care Team Providers Care Application Designer Name Role Phone Alma Chavarria MD Primary Care Provider + [phone] Encounter Details Date Type Department Care Team ([facility] st Contact Info) Description 04/17/2025 3:30 PM EST Office Visit [facility] [address] [place] [address] Tano Grande MD [address] [phone] Anti-glomerular basement membrane disease (Primary Dx); Hypertension; Increased body mass index <Overweight>; Isolated proteinuria Social History Tobacco Use Types Packs/Day Years Used Date Smoking Tobacco: Never Alcohol Use Standard Drinks/Week Comments No 0 (1 standard drink = 0.6 oz pur e alcohol) Sex and Gender Information Value Date Recorded Sex Assigned at Not on file Legal Sex Male 5:22 PM EST Gender Identity Not on file Sexual Orientation Not on file documented as of this encounter Last Filed Vital Signs Vital Sign Reading Time Taken Comments Blood Pressure 116/67 04/17/2025 3:09 PM EST Pulse 62 04/17/2025 3:09 PM EST Temperature - - Respiratory Rate - - Oxygen Saturation - - Inhaled Oxygen Concentration - - Weight 121 kg (267 lb) 04/17/2025 3:09 PM EST Height - - Body Mass Index 36.21 01/31/2020 12:00 PM EDT documented in this encounter Progress Notes * Tano Grande MD - 04/17/2025 3:30 PM EST [facility] Patient Name: Amado Fox, Male Date of : 1990, 35 y.o. Date: 04/17/2025 Referring MD: No primary care provider on file. PCP: Alma Chavarria MD Reason For Visit: I had the pleasure of seeing your patient for follow up of anti GBM (glomerular basement membrane) disease. He lost 140 lbs. The following portions of the patient's chart were reviewed in this encounter and updated as appropriate: Meds Constitutional: Negative for chills, fever, malaise/fatigue and weight loss. HENT: Negative for ear pain, hearing loss and tinnitus. Eyes: Negative for blurred vision, double vision, photophobia and pain. Respiratory: Negative for cough, hemoptysis, sputum production, shortness of breath and wheezing. Cardiovascular: Negative for chest pain, palpitations, orthopnea, claudication and leg swelling. Gastrointestinal: Negative for abdominal pain, diarrhea, nausea and vomiting. Genitourinary: Negative for dysuria, flank pain, frequency, hematuria and urgency. Musculoskeletal: Negative for myalgias. Skin: Negative for itching and rash. Neurological: Negative for dizziness, tingling and headaches. Psychiatric/Behavioral: Negative for depression. Full 13 point review of systems unremarkable except as noted above. Past Medical History: Diagnosis Date H/O: kidney disease Hypertension Past Surgical History: Procedure Laterality Date OTHER SURGICAL HISTORY Social History Tobacco Use Smoking status: Never Smokeless tobacco: Not on file Substance Use Topics Alcohol use: No Family History Problem Relation Age of Onset Hypertension Father Diabetes Mother Type 2 Current Outpatient Medications Medication Sig Dispense Refill amLODIPine-benazepril (LOTREL) 10-40 MG per capsule Take by mouth 1 (one) time each day amphetamine-dextroamphetamine XR (Adderall XR) 15 MG 24 hr capsule Take 1 capsule by mouth 1 (one) time each day buPROPion XL (WELLBUTRIN XL) 150 MG 24 hr tablet Cholecalciferol (Vitamin D3) 125 MCG (5000 UT) capsule Take 1 capsule by mouth 1 (one) time each day Dapagliflozin Propanediol 5 MG tablet Take 5 mg by mouth 1 (one) time each day in the morning 30 tablet 5 escitalopram (LEXAPRO) 20 MG tablet guanFACINE HCl ER 4 MG tablet sustained-release 24 hour Take 1 tablet by mouth 1 (one) time each day hydrOXYzine (ATARAX) 25 MG tablet rosuvastatin (CRESTOR) 10 MG tablet Take 10 mg by mouth at bed time spironolactone (Aldactone) 25 MG tablet Take 1 tablet (25 mg total) by mouth 1 (one) time each day 90 tablet 3 No current facility-administered medications for this visit. Allergies Allergen Reactions Erythromycin Other (see comments) Penicillins Sulfa Antibiotics Other (see comments) Objective: Vitals: 04/17/25 1509 BP: 116/67 Pulse: 62 Weight: 267 lb (121 kg) Physical Exam Constitutional: Oriented to person, place, and time. HEENT: Mouth/Throat: Oropharynx is clear and moist. Eyes: Pupils are equal, round, and reactive to light. Neck: No JVD present. Cardiovascular: Regular rhythm. Pulmonary/Chest: Breath sounds normal. Abdominal: Soft. There is no abdominal tenderness. Musculoskeletal: Normal range of motion. Neurological: Alert and oriented to person, place, and time. Skin: Skin is warm. Psychiatric: Normal mood and affect. No results found for: EGFRAFR Est GFR Non Date Value Ref Range Status 01/10/2023 113 ML/MIN/1.73 M2 Final Comment: Creatinine based estimated glomerular filtration (eGFR) in adults is calculated using the National Kid[employer] recommended 2020 CKD-EPI equation. Estimates GFR from serum creatinine, age and sex. Testing performed or reported by [facility], a Service of [facility], [address] [place] [address] Torres Ibarra MD, Professor Of Rhetoric NELSON# [id number] Chemistry Lab Units 08/24/24 0756 02/07/24 0000 CREATININE mg/dL 1.07 0.83 BUN mg/dL 20 15 BUN / CREAT RATIO 19 18 GLUCOSE mg/dL 107* 91 POTASSIUM mmol/L 4.5 4.3 SODIUM mmol/L 141 140 CO2 mmol/L 19* 19 CHLORIDE mmol/L 105 105 ALBUMIN g/dL 4.5 4.3 Bone Mineral Lab Units 08/24/24 0756 02/07/24 0000 CALCIUM mg/dL 9.4 9.1 PHOSPHORUS mg/dL 3.7 -- CBC Lab Units 08/24/24 0756 WBC AUTO x10E3/uL 6.7 RBC AUTO x10E6/uL 5.55 MCV fL 90 HEMATOCRIT % 49.7 HEMOGLOBIN g/dL 17.2 PLATELETS AUTO x10E3/uL 282 Urine Lab Units 08/28/24 0734 ALB MG/G CREAT UR mg/g creat 307* Urine Lab Units 08/28/24 0734 PH U 6.0 COLOR U Yellow GLUCOSE UR 1+* WBC UR HPF /hpf None seen RBC UR HPF /hpf None seen UROBILINOGEN UA mg/dL 0.2 Labs Lab Units 08/24/24 0754 C3 COMPLEMENT mg/dL 160 C4 COMPLEMENT mg/dL 24 PLAN: Assessment & Plan 1. Anti-glomerular basement membrane disease 2. Hypertension 3. Increased body mass index <Overweight> 4. Isolated proteinuria Kidney function is normal. Proteinuria is borderline macroscopic. Urine sediment is benign and he did not have hematuria. Anti GBM was negative Complement level is normal. This is a patient with a history of refractory anti GBM disease. 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 He had apheresis after failing treatments with oral and IV cyclophosphamide, and subsequently received rituximab he continued for 1 year of mycophenolate in addition to steroids He has been in remission since with a creat of 1.0 mg/dl. He has not had blood work for quite some time. In summary chronologically he is: s/p 3.5 months of oral cyclophosphamide 1 mg per kg per day s/p 3.5 months of cyclophosphamide 2 mg per kg per day orally s/p IV cyclophosphamide 1 g mg/m2 for six months given as monthly doses He subsequently developed necrotizing crescentic glomerulonephritis on repeat biopsy s/p six weekly doses of rituximab 375 mg/m2 s/p on and off plasmapheresis (more than 40 sessions so far because of rebounding antibody levels) since receiving rituximab, except for a couple of positive antibody levels for which he received plasmapheresis, his antibody levels have been negative at least two weeks after the last dose s/p mycophenolate for 1 year as maintenance regimen while we was weaned off steroids Blood pressure is on target. He is on ACEi. He is on dapagliflozin. REC RAASI SGTL2i MAR Follow kidney function and electrolytes Follow anti GBM Follow urine sediment Follow UPCR Follow ANCA panel Low sodium diet Avoid NSAID Weight loss Orders Placed This Encounter Glomerular basement membrane antibodies ANCA Panel Basic metabolic panel Urinalysis with microscopic Urine Albumin / Creatinine Ratio Urine Albumin / Creatinine Ratio ANCA Panel Glomerular basement membrane antibodies Basic metabolic panel Urinalysis with microscopic Return in 6 months (on 10/15/2025). Tano Grande MD documented in this encounter Plan of Treatment Upcoming Encounters Date Type Department Care Team (Late st Contact Info) Description 10/23/2025 4:30 PM EDT Office Visit [facility] [address] [place] [phone] Tano Grande MD [address] [phone] Pending Results Name Type Priority Associated Diagnoses Date /Time ANCA Panel Lab Routine Anti-glomerular basement membrane disease 04/17/2025 4:00 PM EST Scheduled Orders Name Type Priority Associated Diagnoses Orde r Schedule Urine Albumin / Creatinine Ratio Lab Routine Anti-glomerular basement membrane disease Expected: 07/18/2025 (Approximate), Expires: 05/17/2026 ANCA Panel Lab Routine Anti-glomerular basement membrane disease Expected: 07/18/2025 (Approximate), Expires: 05/17/2026 Glomerular basement membrane antibodies Lab Routine Anti-glomerular basement membrane disease Expected: 07/18/2025 (Approximate), Expires: 05/17/2026 Basic metabolic panel Lab Routine Anti-glomerular basement membrane disease Expected: 07/18/2025 (Approximate), Expires: 05/17/2026 Urinalysis with microscopic Lab Routine Anti-glomerular basement membrane disease Expected: 07/18/2025 (Approximate), Expires: 05/17/2026 documented as of this encounter Procedures Procedure Name Priority Date/Time Associated Diagnosis Comments MICROSCOPIC EXAMINATION - DO NOT USE Routine 04/17/2025 4:00 PM EST ANCA PANEL Routine 04/17/2025 4:00 PM EST Anti-glomerular basement membrane disease GLOMERULAR BASEMENT MEMBRANE ANTIBODIES Routine 04/17/2025 4:00 PM EST Anti-glomerular basement membrane disease URINE ALBUMIN / CREATININE RATIO Routine 04/17/2025 4:00 PM EST Anti-glomerular basement membrane disease URINALYSIS WITH MICROSCOPIC Routine 04/17/2025 4:00 PM EST Anti-glomerular basement membrane disease BASIC METABOLIC PANEL Routine 04/17/2025 4:00 PM EST Anti-glomerular basement membrane disease documented in this encounter Results * Microscopic Examination (04/17/2025 4:00 PM EST) WBC, Urine None seen 0 - 5 /hpf [facility] RBC, Urine None seen 0 - 2 /hpf [facility] Squamous Epithelial, Urine None seen 0 - 10 /hpf [facility] Casts None seen None seen /lpf [facility] Bacteria, Urine None seen None seen/Few [facility] 04/17/2025 4:00 PM EST 04/17/2025 Tano Grande MD LAB MICROBIOLOGY - GENERAL ORDER SHENG Final Result [facility] [address] [place] [address] * (ABNORMAL) Urine Albumin / Creatinine Ratio (04/17/2025 4:00 PM EST) Creatinine, Ur 90.2 Not Estab. mg/dL [facility] Albumin, Urine 48.8 Not Estab. ug/mL [facility] Albumin/Creatin ine Ratio 54(H) 0 - 29 mg/g creat [facility] Comment: Normal: 0 - 29 Moderately increased: 30 - 300 Severely increased: >300 Urine Urine specimen obtained by clean catch procedure / Unknown 04/17/2025 4:00 PM EST 04/17/2025 Tano Grande MD LAB URINE ORDERABLES Final Resul t [facility] [address] [place] [address] * (ABNORMAL) Urinalysis with microscopic (04/17/2025 4:00 PM EST) Specific [place], Urine 1.020 1.005 - 1.030 [facility] pH Urine 6.5 5.0 - 7.5 [facility] Color, Urine Yellow Yellow [facility] Appearance Urine Clear Clear [facility] [place] WBC Esterase Urine Negative Negative [facility] Protein, Ur Trace Negative/Tra ce [facility] Glucose, Ur 2+(A) Negative [facility] Ketones, Urine Negative Negative [facility] [place] Blood Urine Negative Negative [facility] Bilirubin Urine Negative Negative [facility] [place] [phone] Urobilinogen Urine 1.0 0.2 - 1.0 mg/dL [facility] Nitrite, Urine Negative Negative [facility] Microscopic Examination Comment [facility] Comment:Microscopic follows if indicated. Other Microsc. Observations See below: [facility] Comment:Microscopic was arielle cated and was performed. Urine Urine specimen obtained by clean catch procedure / Unknown 04/17/2025 4:00 PM EST 04/17/2025 Tano Grande MD LAB URINE ORDERABLES Final Resul t [facility] [address] [place] [address] * Basic metabolic panel (04/17/2025 4:00 PM EST) Glucose 85 70 - 99 mg/dL [facility] BUN 19 6 - 20 mg/dL [facility] Creatinine 1.08 0.76 - 1.27 mg/dL [facility] eGFR CKD-EPI CR 2020 91 >59 mL/min/1.7 3 [facility] BUN/Creatinine Ratio 18 9 - 20 [facility] Sodium 141 134 - 144 mmol/L [facility] Potassium 4.5 3.5 - 5.2 mmol/L [facility] Chloride 99 96 - 106 mmol/L [facility] Bicarbonate (CO2) 22 20 - 29 mmol/L [facility] Calcium 9.8 8.7 - 10.2 mg/dL [facility] Blood Venous blood / Unknown 04/17/2025 4:00 PM EST 04/17/2025 us Tano Grande MD LAB BLOOD ORDERABLES Final Resul t [facility] [place] [address] [place] [address] * Glomerular basement membrane antibodies (04/17/2025 4:00 PM EST) ANTI-GBM AB <0.2 0.0 - 0.9 units [facility] Blood Venous blood / Unknown 04/17/2025 4:00 PM EST 04/17/2025 us Tano Grande MD LAB BLOOD ORDERABLES Final Resul t [facility] [address] [place] [address] documented in this encounter Visit Diagnoses Diagnosis Anti-glomerular basement membrane disease- Primary Hypertension Increased body mass index <Overweight> Isolated proteinuria documented in this encounter Care Teams Application Designer Relationship Specialty Start Date End Date Alma Chavarria MD [address] [place] [address] PCP - General Internal Medicine 12/09/22 documented as of this encounter
--- NOTE | 2025-04-22 09:47 | A.OFFVIS_ITS ---
VS Expanded 04/22/25 09:53 Height 6 ft Weight 263 lb BMI 35.7 Intake Visit Reasons: (TV) PO LSG 11/20/24 Allergies azithromycin Allergy (Mild, Verified 12/26/24 14:00) ? rash-childhood allergy Penicillins Allergy (Mild, Verified 12/26/24 14:00) ? rash-childhood allergy Sulfa (Sulfonamide Antibiotics) Allergy (Mild, Verified 12/26/24 14:00) ? rash-childhood allergy Medication List - Last Reconciled 04/22/25 by AUSTYN Pizano cholecalciferol (vitamin D3) 125 mcg PO BEDTIME dextroamphetamine-amphetamine 5 mg ER 1 cap PO BID docusate sodium (Colace) 100 mg PO DAILY escitalopram oxalate (Lexapro) 30 mg PO BEDTIME rosuvastatin 10 mg PO BEDTIME HPI Comments Details: This a 34 yo male who is s/p LSG without hiatal hernia repair on 11/20/2024. Presents for 5 month post op visit. Weight today is 263 pounds, with a BMI of 35.7. Initial weight 397.6 pounds starting the program on 08/08/2024 and operative weight 355.8 pounds. No complaints of nausea, emesis, abdominal pain or reflux. Reports infrequent but normal bowel movements every 2-3 days and uses stool softeners regularly. Taking celebrate mvi. He stopped both amlodipine/benazepril and dapaglifozin per Dr Lambert and PCP in agreement. Planning to follow up with kidney doctor to determine whether to continue this or interchange agent. Off spironolactone now. Present meal plan includes: Ryze protein powder (25 gm per scoop) 1 scoop in 8 oz almond milk at 8-10, 2-4 fit crunch bar 11-1, meal 6-8, 3 forks protein and 3 forks veg Drinking 70 oz fluids Exercise routine includes: Elliptical after work 6 days per week, 400-500 bailey lifts weights before work Mon-Fri [facility] Medical History Abnormal EKG Pre-diabetes Cardiomyopathy, unspecified Anxiety and depression Anti-glomerular basement membrane antibody disease ADHD DJD (degenerative joint disease) Hyperlipidemia Hypertension Morbid obesity Fatty liver Surgical History History of esophagogastroduodenoscopy (EGD) History of biopsy of kidney History of video-assisted thoracoscopic surgery (VATS) Family History Father Heart attack Social History Household Members: Family Household Members Other:: Dad Housing: House Housing Other:: lives in an in-law apt @ parent's home Are you a primary hiv/aids care nurse to a significant other at home: No Do you presently have visiting nurse or other home services: No Patient Tobacco Use Status: Never used Tobacco Second Hand Smoke Exposure: No Telehealth Telehealth Telehealth Platform: Telephone Location of provider rendering services: other Location of patient: address on file Patient Identification confirmed using: Name, : Yes Telehealth method: voice only Patient verbally consented to treatment: Yes Patient verbally consented to billing insurance company: Yes Patient informed of any privacy concerns related to visit: Yes Minutes spent on Phone/Video with Pt.: 16 Assessment & Plan Assessment & Plan (1) S/P laparoscopic sleeve gastrectomy: Code(s): Z98.84 - Bariatric surgery status Category: Surgical (2) Obesity: Code(s): E66.9 - Obesity, unspecified Category: Medical Plan Pt doing well on current meal plan, exercise regimen. He is no longer morbidly obese. He has stopped his BP med and Farxiga- will also order labs to ensure no vitamin deficiencies or other abnormalities are contributing to fatigue. No reflux off PPI. He will continue to communicate with Dr Petra moscoso. RTC 3-4 months for TV. Gave pt my phone # for any questions he has for me between visits. Orders: Orders TSH reflex Free T4 Today Z98.84 - Bariatric surgery status Vitamin A Today Z98.84 - Bariatric surgery status Vitamin B12 and Folate Today Z98.84 - Bariatric surgery status Complete Blood Count Auto Diff Today Z98.84 - Bariatric surgery status Lipid Panel Today Z98.84 - Bariatric surgery status IRON PROFILE Today Z98.84 - Bariatric surgery status Vitamin D 25-OH Total Today Z98.84 - Bariatric surgery status Ferritin Today Z98.84 - Bariatric surgery status C Reactive Protein Today Z98.84 - Bariatric surgery status Vitamin B1 Today Z98.84 - Bariatric surgery status Zinc Today Z98.84 - Bariatric surgery status Comprehensive Met. Panel Today Z98.84 - Bariatric surgery status Hemoglobin A1c Today Z98.84 - Bariatric surgery status Insulin Today Z98.84 - Bariatric surgery status
[2025-04-22 09:53] VITALS: BMI 35.7
--- OUTSIDE RECORDS SUMMARY | 2025-04-22 11:21 | XMS_ITS | Clinical Summary ---
Author Organization [facility] Address [address] [place] [address] Phone Care Team Providers Care Supervisor Train Operations Name Role Phone Alma Chavarria MD Primary Care Provider + [phone] Allergies Active Allergy Reactions Criticality Noted Date [...] Encounters Date Type Department Care Team Description 04/17/2025 3:30 PM EST Office Visit [facility] [place] [phone] Tano Grande MD Anti-glomerular basement membrane disease (Primary Dx); Hypertension; Increased body mass index <Overweight>; Isolated proteinuria from Last 3 Months Family History Medical [...] (267 lb) 04/17/2025 3:09 PM EST Height 182.9 cm (6') 01/31/2020 12:00 PM EDT Body Mass Index 36.21 01/31/2020 12:00 PM EDT Plan of Treatment Upcoming Encounters Date Type Department Care Team (Late st Contact Info) Description 10/23/2025 4:30 PM EDT Office Visit [facility] [address]. [address] [place] [phone] Tano Grande MD [address] [phone] Health Maintenance Due Date Last Done Comments Hepatitis B Vaccine (1 of 3 - 19+ 3-dose series) 02/09 Pneumococcal Vaccine: Peds ( 0 to 5 Years) and At-Risk Patients (6 to 49 Years) (1 of 2 - PCV) 02/09/2007 Influenza Vaccine (#1) 2025 Procedures Procedure Name Priority Date/Time Associated Diagnosis Comments URINE ALBUMIN / CREATININE RATIO Routine 04/17/2025 4:00 PM EST Anti-glomerular basement membrane disease URINALYSIS WITH MICROSCOPIC Routine 04/17/2025 4:00 PM EST Anti-glomerular basement membrane disease BASIC METABOLIC PANEL Routine 04/17/2025 4:00 PM EST Anti-glomerular basement membrane disease ANCA PANEL Routine 04/17/2025 4:00 PM EST Anti-glomerular basement membrane disease GLOMERULAR BASEMENT MEMBRANE ANTIBODIES Routine 04/17/2025 4:00 PM EST Anti-glomerular basement membrane disease MICROSCOPIC EXAMINATION - DO NOT USE Routine 04/17/2025 4:00 PM EST from Last 3 Months Results * Microscopic Examination (04/17/2025 4:00 PM EST) WBC, Urine None seen 0 - 5 /hpf [facility] RBC, Urine None seen 0 - 2 /hpf [facility] Squamous Epithelial, Urine None seen 0 - 10 /hpf [facility] Casts None seen None seen /lpf [facility] Bacteria, Urine None seen None seen/Few [facility] 04/17/2025 4:00 PM EST 04/17/2025 us Tano Grande MD LAB MICROBIOLOGY - GENERAL ORDER SHENG Final Result [facility] [address] [place] [address] * Glomerular basement membrane antibodies (04/17/2025 4:00 PM EST) ANTI-GBM AB <0.2 0.0 - 0.9 units [facility] Blood Venous blood / Unknown 04/17/2025 4:00 PM EST 04/17/2025 us Tano Grande MD LAB BLOOD ORDERABLES Final Resul t Performing Organization Address City/[facility] Co de Phone Number [facility] [place] [address] * (ABNORMAL) Urine Albumin / Creatinine Ratio (04/17/2025 4:00 PM EST) Pathologist [facility] Creatinine, Ur 90.2 Not Estab. mg/dL [facility] Albumin, Urine 48.8 Not Estab. ug/mL [facility] Albumin/Creatin ine Ratio 54(H) 0 - 29 mg/g creat [facility] Comment: Normal: 0 - 29 Moderately increased: 30 - 300 Severely increased: >300 Urine Urine specimen obtained by clean catch procedure / Unknown 04/17/2025 4:00 PM EST 04/17/2025 us Tano Grande MD LAB URINE ORDERABLES Final Resul t Performing Organization Address City/[facility]/ZIP Co de Phone Number [facility] [address] [place] [address] * (ABNORMAL) Urinalysis with microscopic (04/17/2025 4:00 PM EST) Specific [place], Urine 1.020 1.005 - 1.030 [facility] [phone] pH Urine 6.5 5.0 - 7.5 [facility] [phone] Color, Urine Yellow Yellow [facility] [phone] Appearance Urine Clear Clear [facility] [place] WBC Esterase Urine Negative Negative [facility] [phone] Protein, Ur Trace Negative/Tra ce [facility] [phone] Glucose, Ur 2+(A) Negative [facility] Ketones, Urine Negative Negative [facility] [place] [phone] Blood Urine Negative Negative [facility] Bilirubin Urine Negative Negative [facility] [place] Urobilinogen Urine 1.0 0.2 - 1.0 mg/dL [facility] [phone] Nitrite, Urine Negative Negative [facility] Microscopic Examination Comment [facility] [phone] Comment:Microscopic follows if indicated. Other Microsc. Observations See below: [facility] Comment:Microscopic was arielle cated and was performed. Urine Urine specimen obtained by clean catch procedure / Unknown 04/17/2025 4:00 PM EST 04/17/2025 us Tano Grande MD LAB URINE ORDERABLES Final Resul t [facility] [address] [place] [address] * Basic metabolic panel (04/17/2025 4:00 PM EST) Glucose 85 70 - 99 mg/dL [facility] BUN 19 6 - 20 mg/dL [facility] Creatinine 1.08 0.76 - 1.27 mg/dL [facility] eGFR CKD-EPI CR 2020 91 >59 mL/min/1.7 3 [facility] BUN/Creatinine Ratio 18 9 - 20 [facility] Sodium 141 134 - 144 mmol/L [facility] Potassium 4.5 3.5 - 5.2 mmol/L [facility] Chloride 99 96 - 106 mmol/L [facility] Bicarbonate (CO2) 22 20 - 29 mmol/L [facility] Calcium 9.8 8.7 - 10.2 mg/dL [facility] Blood Venous blood / Unknown 04/17/2025 4:00 PM EST 04/17/2025 us Tano Grande MD LAB BLOOD ORDERABLES Final Resul t [facility] [address] [place] [address] from Last 3 Months Insurance [facility] Care Teams Supervisor Train Operations Relationship Specialty Start Date End Date Alma Chavarria MD [address] [place] [address] PCP - General Internal Medicine 12/09/22
--- OUTSIDE RECORDS SUMMARY | 2025-04-22 11:21 | XMS_ITS | Clinical Summary ---
Author Organization [facility] Address [address] [place] [phone] Phone Care Team Providers Care Desolderer Name Role Phone Alma Chavarria MD Primary [...] HIV ONE-TIME SCREENING (18-6 5 YEARS) 02/09/2006 INFLUENZA VACCINE (#1) 2025 , 05/07/2022 COVID-19 VACCINE (4 - 2024-2 6 season) 2025 05/07/2022, 10/19/2020, 09/28/2020 BLOOD PRESSURE 04/30/2025 10/28/2024 Adult Td,Tdap Booster 05/21/2032 05/21/2022 PNEUMOCOCCAL VACCINES (0-49 years) Completed 11/19/2022 HEPATITIS A VACCINES Aged Out 03/29/2024 No long er eligible based on patient's age to complete this topic SMOKING STATUS SCREENING (On ce After 26 Yrs) Completed 10/28/2024 HIB VACCINES Aged Out No longer eligi ble based on patient's age to complete this topic IPV VACCINES Aged Out No longer eligi ble based on patient's age to complete this topic MENINGOCOCCAL VACCINES (ACWY) Aged Out No longer eligible based on patient's age to complete this topic MENINGOCOCCAL VACCINES (B) Aged Out N o longer eligible based on patient's age to complete this topic Medical Devices Not on file Insurance [facility] OUT OF STATE PPO BLUE [employer]OSS OUT OF STATE PPO [employer]UE [employer]OSS OUT OF STATE PPO [employer]UE [employer]OSS OUT OF STATE PPO BL[employer]OSS OUT OF STATE PPO [employer] OUT OF STATE PPO Care Teams Desolderer Relationship Specialty Start Date End Date Alma Chavarria MD [address] [place] [phone] PCP - General Internal Medicine 09/28/24 Additional Source Comments The information contained in this document represents components of the legal health record. It is not the complete legal health record.[facility]
== END 2025-04-22 10:09 | disposition home or self-care (01) ==
LOC: HO.HBS 09:54
PROVIDERS: PCP Internal Medicine; Visit Provider Physician Assistant Surgical
DX: E66.9 Obesity, unspecified (principal); Z68.35 Body mass index [BMI] 35.0-35.9, adult; Z90.3 Acquired absence of stomach [part of]; Z98.84 Bariatric surgery status
CPT/HCPCS: 98967